=== PATIENT | male | born 1980 | race Caucasian/White ===

== ENCOUNTER → 2017-11-22 | Outpatient (CLI) | payer OTHER ==
--- NOTE | 2017-11-22 17:59 | US ---
EXAMINATION TYPE: US extremity nonvasculr ltd RT posterior knee DATE OF EXAM: 11/22/2017 COMPARISON: NONE CLINICAL HISTORY: 37-year-old male M71.21 SYNOVIAL CYST. Rt posterior knee feels lumpy at times no recent injury TECHNIQUE: Multiple sonographic images of the posterior right knee for specific assessment of Tripathi's cyst. FINDINGS: There is no abnormal fluid collection or mass identified along the popliteal fossa. IMPRESSION: No sonographic evidence for a Tripathi's cyst on the right. If there is persistence of a clinically appa rent palpable abnormality, consider MRI.
== END | disposition home or self-care (01) ==
LOC: RADUSWWP 14:50
PROVIDERS: ATTEND Family Medicine
DX: R94.8 Abnormal results of function studies of other organs and systems (principal)

== ENCOUNTER → 2017-12-26 | Outpatient (CLI) | payer OTHER ==
--- NOTE | 2017-12-26 22:39 | MR ---
EXAMINATION TYPE: MR knee RT wo con DATE OF EXAM: 12/26/2017 COMPARISON: NONE HISTORY: SYNOVIAL CYST OF POPLITEAL SPACE RT KNEE, PAIN X 2 MTHS TECHNIQUE: Multiplanar, multisequence images of the knee is performed without IV contrast. FINDINGS: MEDIAL MENISCUS: Anterior and posterior horns are intact without tear. LATERAL MENISCUS: Anterior and posterior horns are intact without tear. CRUCIATE LIGAMENTS: The anterior and posterior cruciate ligaments are intact and unremarkable. COLLATERAL LIGAMENTS: The medial collateral ligament and lateral collateral ligament complex are inta ct and unremarkable. EXTENSOR MECHANISM: Visualized quadriceps and patellar tendons are intact. EFFUSION: There is small suprapatellar joint effusion. POPLITEAL CYST: No popliteal/holloway cyst. TRICOMPARTMENT SPACES: Tricompartment spaces are fairly well-maintained. There is no significant spur ring seen. CARTILAGE: Tricompartment articular cartilage is preserved. There is no significant chondromalacia pa tella noted. BONE MARROW SIGNAL: No focal abnormal marrow signal is appreciated. OTHER: No additional significant abnormality is appreciated. IMPRESSION: Small suprapatellar joint effusion. No meniscal or ligamentous tear is seen. No popliteal cyst noted.
== END | disposition home or self-care (01) ==
LOC: RADMRIMAIN 17:10
PROVIDERS: ATTEND Family Medicine
DX: M25.461 Effusion, right knee (principal); Z87.39 Personal history of other diseases of the musculoskeletal system and connective tissue

== ENCOUNTER → 2018-04-17 | Outpatient (CLI) | payer OTHER ==
[2018-04-17 15:11] LABS: Basophils # (A) 0.1 k/uL (0-0.2); Basophils % (A) 1 %; Eosinophils # (A) 0.3 k/uL (0-0.7); Eosinophils % (A) 3 %; HCT 48.7 % (39.0-53.0); HGB 16.1 gm/dL (13.0-17.5); Lymphocytes # (A) 2.3 k/uL (1.0-4.8); Lymphocytes % (A) 24 %; MCH 28.2 pg (25.0-35.0); MCHC 33.1 g/dL (31.0-37.0); MCV 85.2 fL (80.0-100.0); Monocytes # (A) 0.5 k/uL (0-1.0); Monocytes % (A) 5 %; Neutrophils # (A) 6.2 k/uL (1.3-7.7); Neutrophils % (A) 65 %; Platelet Count 276 k/uL (150-450); RBC 5.72 m/uL (4.30-5.90); RDW 14.3 % (11.5-15.5); WBC 9.5 k/uL (3.8-10.6)
[2018-04-17 15:25] LABS: Potassium 4.4 mmol/L (3.5-5.1)
== END | disposition home or self-care (01) ==
LOC: LABPAT 14:23
PROVIDERS: ATTEND Orthopaedic Surgery
DX: Z01.812 Encounter for preprocedural laboratory examination (principal); M23.91 Unspecified internal derangement of right knee
CPT/HCPCS: 36415; 80051; 85025

== ENCOUNTER 2018-04-18 11:18 | Day surgery (SDC) | payer OTHER ==
[2018-04-17 09:41] VITALS: BMI 36.9
--- NOTE | 2018-04-17 20:17 | HP ---
HISTORY AND PHYSICAL DATE OF SURGERY: 04/18/2018 Javad Dover is a 37-year-old patient seen with progressive right knee pain. We discussed treatment options. He elected to proceed with arthroscopy. Consent was obtained. PAST MEDICAL HISTORY: Noncontributory. PAST SURGICAL HISTORY: Right hand surgery. DAILY MEDICATIONS: None. ALLERGIES: NONE. SOCIAL HISTORY: Denies tobacco use. PHYSICAL EVALUATION OF THE RIGHT KNEE: Range of motion 0 to 130 degrees. Tenderness along the medial joint line. Positive medial Karen's. Ligaments stable. Hip rotation without pain. Distal neurovascular exam intact. RADIOGRAPHS: Radiographs of the right knee show no osseous abnormality. MRI of right knee revealed an effusion. IMPRESSION: Internal derangement of right knee with meniscal tear. PLAN: Right knee arthroscopy with partial meniscectomy and debridement. MMODL / IJN: [id number] /
[~2018-04-18 11:18] MED LIST: ceFAZolin IN SWFI 2 GM/20 ML SYRINGE IVP ONE
[2018-04-18] MEDS ORDERED: SCOPOLAMINE 1.5MG/72HR PATCH TRANSDERM ONE (11:29)
[2018-04-18] MEDS ORDERED: MIDAZOLAM (PF) 2 MG/2 ML VIAL IV PRN (11:29)
[2018-04-18] MEDS ORDERED: ONDANSETRON 4 MG/2 ML VIAL IVP ONE (11:29)
[2018-04-18] MEDS ORDERED: DEXAMETHASONE SOD PHOSPHATE 10 MG/ML 1 ML VIAL IV ONE (11:29)
[2018-04-18 11:46] VITALS: RESP 16
[2018-04-18] MEDS: LACTATED RINGERS 1,000 ML IV SCH ×2 (11:53→14:57)
[2018-04-18] MEDS ORDERED: LIDOCAINE 1% 20 ML VIAL (10MG/ML) FOR IV START INTRADERMA ONE (11:53)
[2018-04-18] MEDS ORDERED: SUCCINYLCHOLINE CHLORIDE VIAL 200 MG/10 ML VIAL IV ONE (13:26)
[2018-04-18] MEDS ORDERED: MIDAZOLAM 2 MG/2 ML VIAL ONE (13:26)
[2018-04-18] MEDS ORDERED: fentaNYL (PF) 50 MCG/ML 2 ML AMP ONE (13:26)
[2018-04-18] MEDS ORDERED: ePHEDrine SULFATE/0.9% NACL/PF 50 MG/5 ML SYRINGE IV ONE (13:26)
[2018-04-18] MEDS ORDERED: PROPOFOL 10 MG/ML 20 ML VIAL IV ONE (13:26)
[2018-04-18] MEDS ORDERED: BUPIVACAINE (PF) 0.25% 30 ML VIAL INTRAARTIC ONE (13:35)
--- NOTE | 2018-04-18 14:25 | P.OP ---
Date of Procedure: 04/18/18 Preoperative Diagnosis: Internal derangement right knee Postoperative Diagnosis: 1. Tear medial meniscus right knee 2. 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 Reactive synovitis medial, lateral and suprapatellar compartments right knee Procedure(s) Performed: 1. Arthroscopic partial medial meniscectomy right knee 2. Arthroscopic chondroplasty lateral tibial plateau right knee 3. Arthroscopic partial synovectomy medial, lateral and suprapatellar compartments right knee Anesthesia: GETA, local Surgeon: Jordan Holley Estimated Blood Loss (ml): 5 Pathology: none sent Condition: stable Disposition: PACU Indications for Procedure: 37-year-old patient seen with progressive right knee pain. After having treatment options discussed, he elected to proceed with arthroscopy. Operative Findings: See description of procedure Description of Procedure: Patient was taken to the operative suite. Patient underwent a general anesthetic by the department of anesthesia. Patient was given preoperative antibiotics. The right lower extremity was placed in a well-padded arthroscopic leg craig. The right leg was prepped and draped in the normal sterile orthopedic fashion. A lateral parapatellar and suprapatellar incision was made. Trochars were inserted. Arthroscopy was initiated. Suprapatellar pouch revealed diffuse thick reactive synovitis. The patellofemoral joint appeared to articulate congruently. There was grade 1 chondromalacia of the patella, no osteochondral tears were present. The scope was guided into the medial gutter. No loose bodies or plica was identified. The scope was then guided into the medial compartment. A medial parapatellar incision was made. Trocar inserted followed by probe. There was a radial tear posterior horn medial meniscus. There was thick reactive synovitis anteriorly. No significant chondromalacia was present. I performed a partial medial meniscectomy down to stable tissue. I performed a partial synovectomy decompressing the reactive synovitis. The residual meniscus was stable. There was good decompression of the synovitis. Scope and probe were then guided into the intercondylar notch. Cruciates were identified, probed and found to be stable. The scope and probe were then guided into lateral compartment. The lateral meniscus had some mild superficial fraying. There were areas of grade 1 and 2 chondromalacia lateral tibial plateau with osteochondral tears present. There was thick synovitis anteriorly. I performed a chondroplasty of lateral tibial plateau. I debrided those frayed areas of the meniscus with a motorized shaver. I performed a partial synovectomy decompressing reactive synovitis. The residual osteochondral surface was stable. There was good decompression was synovitis. The scope was in guided back into the suprapatellar compartment. I introduced a motorized shaver into the super compartment. I performed a partial synovectomy decompressing the thick reactive synovitis. The shaver was removed. I took one more look around the entire knee, no residual debris. Instruments were now removed from the joint. The joint was infiltrated with .25% Marcaine. Steri-Strips were applied to the portal sites. Sterile dressings were applied. The patient was placed into a MARIA ISABEL hose. No tourniquet was utilized. The patient was awakened, transferred to a bed and taken to recovery stable satisfactory condition.
[2018-04-18 14:38] VITALS: TEMP 97
[2018-04-18] MEDS: HYDROmorphone 0.5 MG/0.5 ML SYRINGE IVP PRN ×2 (14:43→14:50)
[2018-04-18 15:55] VITALS: BP 148/87; PULSE 95
== END 2018-04-18 16:19 | disposition home or self-care (01) ==
LOC: OR 11:18
PROVIDERS: ATTEND Orthopaedic Surgery
DX: S83.241A Other tear of medial meniscus, current injury, right knee, initial encounter (principal); X58.XXXA Exposure to other specified factors, initial encounter; M22.41 Chondromalacia patellae, right knee; M65.861 Other synovitis and tenosynovitis, right lower leg; G47.33 Obstructive sleep apnea (adult) (pediatric); K21.9 Gastro-esophageal reflux disease without esophagitis
CPT/HCPCS: 29881; J2250; J0330; J1100; J2405; J3010; J2704; J1170; J0690

== ENCOUNTER 2021-01-01 12:00 | Inpatient (IN) | payer OTHER ==
[2021-01-01] MEDS ORDERED: ACETAMINOPHEN TAB 500 MG TAB PO STA (12:34)
[2021-01-01] MEDS ORDERED: SODIUM CHLORIDE 0.9% 500 ML 500 ML IV STA (12:34)
--- NOTE | 2021-01-01 12:34 | ED ---
General Adult HPI - General Chief complaint: Upper Respiratory Infection Stated complaint: KIMBERLY Time Seen by Provider: 01/01/21 12:07 Source: patient Mode of arrival: wheelchair Limitations: no limitations - History of Present Illness Initial comments: Dictation was produced using [employer] dictation software. please excuse any grammatical, word or spelling errors. Chief Complaint: 40-year-old male presents emergency department for covered symptoms History of Present Illness: Patient is a 40-year-old male who presents to the emergency department for covid symptoms. His was admitted to the hospital 2 days ago and seems to be doing well. She tested positive for coronavirus. Patient states he had the vaccine 12 days ago. Patient states that his symptoms began around the timing of the vaccine. She states he's having multiple coronavirus symptoms including chest pain, shortness of breath, pleurisy, myalgias, abdominal pain and diarrhea. He states that his shortness of breath is seemingly worse is also having fever. Denies any medical problems. Denies any daily medications. The ROS documented in this emergency department record has been reviewed and confirmed by me. Those systems with pertinent positive or negative responses have been documented in the HPI. All other systems are other negative and/or noncontributory. PHYSICAL EXAM: General Impression: Alert and oriented x3, not in acute distress HEENT: Normocephalic atraumatic, extra-ocular movements intact, pupils equal and reactive to light bilaterally, mucous membranes moist. Cardiovascular: Heart regular rate and rhythm Chest: Able to complete full sentences, no retractions, no tachypnea Abdomen: abdomen soft, non-tender, non-distended, no organomegaly Musculoskeletal: Pulses present and equal in all extremities, no peripheral edema Motor: no focal deficits noted Neurological: CN II-XII grossly intact, no focal motor or sensory deficits noted Skin: Intact with no visualized rashes Psych: Normal affect and mood ED course: 40-year-old male presents to the emergency department for symptoms of coronavirus. Vital signs upon arrival shows temperature 104.4, heart rate of 1:30, respiratory rate of 26, oxygen saturation of 85% on room air. Patient placed on 4 L nasal cannula with oxygen levels measured in the mid 90s. Vitals after Tylenol administration shows temperature 100.8, heart rate 113. Patient's 92% on 2 L nasal cannula. Laboratory evaluation obtained. CBC is unremarkable. Metabolic panel is negative. D-dimer slightly elevated 0.71. Metabolic panel shows sodium 1:30. Elevated inflammatory markers. A rotavirus-positive still. X-ray shows bilateral infiltrates. CT was obtained for elevated d-dimer. CT angios shows no pulmonary embolism. Patient given Decadron. He will be admitted with pulmonary consultation. Case discussed with the [facility]. EKG interpretation: Ventricular rate 123, sinus tachycardia, WV interval 1:30, QRS 60, QTc 440. No WV prolongation, no QTC prolongation, no ST or T-wave changes noted. Overall, this EKG is unremarkable - Related Data Home Medications Medication Instructions Recorded Confirmed Acetaminophen [Tylenol] 1,000 mg PO Q4H PRN 04/17/18 01/01/21 Ibuprofen [Motrin Ib] 800 mg PO Q8H PRN 01/01/21 01/01/21 Allergies Allergy/AdvReac Type Severity Reaction Status Date / Time No Known Allergies Allergy Verified 01/01/21 13:17 Review of Systems ROS Statement: Those systems with pertinent positive or pertinent negative responses have been documented in the HPI. ROS Other: All systems not noted in ROS Statement are negative. Past Medical History Past Medical History: GERD/Reflux, Sleep Apnea/CPAP/BIPAP Additional Past Medical History / Comment(s): rt knee torn meniscus,no cpap,cortisone injection February 2018,borderline diabetes History of Any Multi-Drug Resistant Organisms: None Reported Past Surgical History: Orthopedic Surgery Additional Past Surgical History / Comment(s): thumb procedure, rt knee Past Anesthesia/Blood Transfusion Reactions: No Reported Reaction Additional Past Anesthesia/Blood Transfusion Reaction / Comment(s): no hx blood transfusion Past Psychological History: No Psychological Hx Reported Smoking Status: Never smoker Past Alcohol Use History: Daily Past Drug Use History: None Reported - Past Family History Mother Family Medical History: No Reported History General Exam Limitations: no limitations Course Vital Signs 01/01/21 01/01/21 01/01/21 12:01 13:42 14:32 Temperature 104.4 F H 102.9 F H 100.8 F H Pulse Rate 130 H 120 H 113 H Respiratory 26 H 20 20 Rate Blood Pressure 130/79 114/70 O2 Sat by Pulse 85 L 93 L 92 L Oximetry Medical Decision Making - Lab Data Result diagrams: 01/01/21 12:56 01/01/21 12:56 Lab Results 01/01/21 01/01/21 01/01/21 Range/Units 12:56 12:56 12:56 WBC 7.9 (3.8-10.6) k/uL RBC 5.57 (4.30-5.90) m/uL Hgb 15.8 (13.0-17.5) gm/dL Hct 44.7 (39.0-53.0) % MCV 80.2 (80.0-100.0) fL MCH 28.3 (25.0-35.0) pg MCHC 35.3 (31.0-37.0) g/dL RDW 13.9 (11.5-15.5) % Plt Count 249 (150-450) k/uL MPV 7.6 Neutrophils % 86 % Lymphocytes % 9 % Monocytes % 4 % Eosinophils % 0 % Basophils % 0 % Neutrophils # 6.8 (1.3-7.7) k/uL Lymphocytes # 0.7 L (1.0-4.8) k/uL Monocytes # 0.3 (0-1.0) k/uL Eosinophils # 0.0 (0-0.7) k/uL Basophils # 0.0 (0-0.2) k/uL PT 11.3 (9.0-12.0) sec INR 1.1 (<1.2) APTT 29.7 (22.0-30.0) sec D-Dimer 0.71 H (<0.60) mg/L FEU Sodium (137-145) mmol/L Potassium (3.5-5.1) mmol/L Chloride (98-107) mmol/L Carbon Dioxide (22-30) mmol/L Anion Gap mmol/L BUN (9-20) mg/dL Creatinine (0.66-1.25) mg/dL Est GFR (CKD-EPI)AfAm (>60 ml/min/1.73 sqM) Est GFR (CKD-EPI)NonAf (>60 ml/min/1.73 sqM) Glucose (74-99) mg/dL Plasma Lactic Acid Jairon (0.7-2.0) mmol/L Calcium (8.4-10.2) mg/dL Magnesium (1.6-2.3) mg/dL Total Bilirubin (0.2-1.3) mg/dL AST (17-59) U/L ALT (4-49) U/L Alkaline Phosphatase (38-126) U/L Lactate Dehydrogenase (313-618) U/L C-Reactive Protein (<1.0) mg/dL Total Protein (6.3-8.2) g/dL Albumin (3.5-5.0) g/dL Influenza Type A (PCR) Not Detected (Not Detectd) Influenza Type B (PCR) Not Detected (Not Detectd) RSV (PCR) Not Detected (Not Detectd) SARS-CoV-2 (PCR) Detected A (Not Detectd) 01/01/21 01/01/21 Range/Units 12:56 12:56 WBC (3.8-10.6) k/uL RBC (4.30-5.90) m/uL Hgb (13.0-17.5) gm/dL Hct (39.0-53.0) % MCV (80.0-100.0) fL MCH (25.0-35.0) pg MCHC (31.0-37.0) g/dL RDW (11.5-15.5) % Plt Count (150-450) k/uL MPV Neutrophils % % Lymphocytes % % Monocytes % % Eosinophils % % Basophils % % Neutrophils # (1.3-7.7) k/uL Lymphocytes # (1.0-4.8) k/uL Monocytes # (0-1.0) k/uL Eosinophils # (0-0.7) k/uL Basophils # (0-0.2) k/uL PT (9.0-12.0) sec INR (<1.2) APTT (22.0-30.0) sec D-Dimer (<0.60) mg/L FEU Sodium 130 L (137-145) mmol/L Potassium 4.8 (3.5-5.1) mmol/L Chloride 98 (98-107) mmol/L Carbon Dioxide 23 (22-30) mmol/L Anion Gap 9 mmol/L BUN 17 (9-20) mg/dL Creatinine 0.86 (0.66-1.25) mg/dL Est GFR (CKD-EPI)AfAm >90 (>60 ml/min/1.73 sqM) Est GFR (CKD-EPI)NonAf >90 (>60 ml/min/1.73 sqM) Glucose 151 H (74-99) mg/dL Plasma Lactic Acid Jairon 1.2 (0.7-2.0) mmol/L Calcium 8.3 L (8.4-10.2) mg/dL Magnesium 2.1 (1.6-2.3) mg/dL Total Bilirubin 0.6 (0.2-1.3) mg/dL AST 99 H (17-59) U/L ALT 43 (4-49) U/L Alkaline Phosphatase 57 (38-126) U/L Lactate Dehydrogenase 2637 H (313-618) U/L C-Reactive Protein 20.7 H (<1.0) mg/dL Total Protein 6.8 (6.3-8.2) g/dL Albumin 3.5 (3.5-5.0) g/dL Influenza Type A (PCR) (Not Detectd) Influenza Type B (PCR) (Not Detectd) RSV (PCR) (Not Detectd) SARS-CoV-2 (PCR) (Not Detectd) Critical Care Time Critical Care Time: Yes Total Critical Care Time: 33 Disposition Clinical Impression: COVID-19 Disposition: ADMITTED IP TO THIS [facility] Condition: Critical Is patient prescribed a controlled substance at d/c from ED?: No Referrals: None,Stated [Primary Care Provider] - 1-2 days
--- NOTE | 2021-01-01 12:36 | XR ---
EXAMINATION TYPE: XR chest 1V portable DATE OF EXAM: 01/01/2021 COMPARISON: NONE HISTORY: Cough and shortness of breath TECHNIQUE: Single frontal view of the chest is obtained. FINDINGS: There are scattered airspace opacities in both lungs left greater than right suggestive of acute pneumonic process. The heart size is normal. There is no large pleural effusion and there is no pneumothorax. The osseous structures are intact. Impression: Bilateral scattered lung consolidative opacities consistent with an acute pneumonic infiltrate or pul monary edema. Clinical correlation short-term follow-up to resolution is recommended.
[2021-01-01] MEDS ORDERED: DEXAMETHASONE SOD PHOSPHATE 10 MG/ML 1 ML VIAL IV STA (13:28)
[2021-01-01 13:35] LABS: Basophils % (A) 0 %; Eosinophils % (A) 0 %; HCT 44.7 % (39.0-53.0); HGB 15.8 gm/dL (13.0-17.5); Lymphocytes # (A) 0.7 k/uL (1.0-4.8); Lymphocytes % (A) 9 %; MCH 28.3 pg (25.0-35.0); MCHC 35.3 g/dL (31.0-37.0); MCV 80.2 fL (80.0-100.0); Mean Platelet Volume 7.6; Monocytes # (A) 0.3 k/uL (0-1.0); Monocytes % (A) 4 %; Neutrophils # (A) 6.8 k/uL (1.3-7.7); Neutrophils % (A) 86 %; Platelet Count 249 k/uL (150-450); RBC 5.57 m/uL (4.30-5.90); RDW 13.9 % (11.5-15.5); WBC 7.9 k/uL (3.8-10.6)
[2021-01-01 13:38] LABS: ALT 43 U/L (4-49); AST 99 U/L (17-59); African American GFR (CKD) >90 (>60 ml/min/1.73 sqM); Albumin 3.5 g/dL (3.5-5.0); Alkaline Phosphatase 57 U/L (38-126); Anion Gap 9 mmol/L; Blood Urea Nitrogen 17 mg/dL (9-20); Calcium 8.3 mg/dL (8.4-10.2); Carbon Dioxide 23 mmol/L (22-30); Chloride 98 mmol/L (98-107); Glucose 151 mg/dL (74-99); INR 1.1 (<1.2); Magnesium 2.1 mg/dL (1.6-2.3); Non-African American GFR(CKD) >90 (>60 ml/min/1.73 sqM); Partial Thromboplastin Time 29.7 sec (22.0-30.0); Prothrombin Time 11.3 sec (9.0-12.0); Sodium 130 mmol/L (137-145); Total Bilirubin 0.6 mg/dL (0.2-1.3); Total Protein 6.8 g/dL (6.3-8.2)
[2021-01-01 13:57] LABS: C Reactive Protein 20.7 mg/dL (<1.0); LDH 2637 U/L (313-618); Potassium 4.8 mmol/L (3.5-5.1)
--- NOTE | 2021-01-01 15:28 | CT ---
EXAMINATION TYPE: CT angio chest DATE OF EXAM: 01/01/2021 COMPARISON: None HISTORY: SOB, cough, elevated d-dimer, +covid CT DLP: 726.7 mGycm Automated exposure control for dose reduction was used. CONTRAST: Performed with IV Contrast, patient injected with 100 mL of Isovue 370. There is patchy extensive pulmonary interstitial edema. Heart size is normal. There are no hilar mass es. There are a few bronchial and mediastinal lymph nodes up to 1 cm. Thoracic aorta is intact. There is no aneurysm or dissection. There is no evidence of filling defect in the pulmonary arteries. There is no pleural effusion. The b ashly thorax is intact. IMPRESSION: No evidence of pulmonary embolism. Pulmonary edema consistent with RDS.
[2021-01-01] MEDS ORDERED: NALOXONE 0.4 MG/ML 1 ML VIAL IV PRN (15:35)
[2021-01-01] MEDS ORDERED: ONDANSETRON 4 MG/2 ML VIAL IVP PRN (15:35)
[2021-01-01] MEDS: ENOXAPARIN 40 MG/0.4 ML SYRINGE SQ SCH (17:17)
[2021-01-01] MEDS: SODIUM CHLORIDE 0.9% 1,000 ML IV SCH (17:19)
--- NOTE | 2021-01-02 00:05 | P.HPIM ---
History of Present Illness H&P Date: 01/01/21 Chief Complaint: COVID-19 pneumonia Mr. Guerin is a 40-year-old male with past medical history of GERD, sleep apnea, prediabetes coming to the hospital with a chief complaint of fever difficulty in breathing. Patient states that his was tested positive for coronavirus couple of days back and admitted to the hospital. Patient states that he got the vaccine 2 weeks back and his symptoms of chest discomfort, difficulty in breathing started around that time. He also complains of myalgias, he states that his skin has become sensitive and he feels like he has pain all over his body. Patient has mild abdominal pain, mild diarrhea. Has difficulty in breathing associated with mild cough. It is nonproductive in nature. Patient also complains of having fever on and off for the past 7 to 10 days. In the ER at the time of admission patient had a fever of 104.4 with heart rate around 130, respiratory 26, saturating at 95% on room air. Patient was given Tylenol started on oxygen and he had CTA of the chest that was negative for PE but showing extensive pulmonary interstitial edema with few bronchial and mediastinal lymph nodes up to 1 cm. On reviewing the patient's labs he was found to have a white count of 7.9, hemoglobin 15.8, platelets 249. Sodium 130, potassium 4.8, chloride 98, bicarb 23, BUN 17, creatinine 0.86. Lactic acid of 1.2 LDH 2637, CRP 20.7 coronavirus PCR positive. Review of Systems REVIEW OF SYSTEMS: CONSTITUTIONAL: As per HPI HEENT: No recent visual problems or hearing problems. Denied any sore throat. CARDIOVASCULAR: No chest pain, orthopnea, PND, no palpitations, no syncope. PULMONARY: As per HPI GASTROINTESTINAL: No diarrhea, no nausea, no vomiting, no abdominal pain. NEUROLOGICAL: No headaches, no weakness, no numbness. HEMATOLOGICAL: Denies any bleeding or petechiae. GENITOURINARY: Denies any burning micturition, frequency, or urgency. MUSCULOSKELETAL/RHEUMATOLOGICAL: myalgias ENDOCRINE: Denies any polyuria or polydipsia. The rest of the 14-point review of systems is negative. Past Medical History Past Medical History: GERD/Reflux, Sleep Apnea/CPAP/BIPAP Additional Past Medical History / Comment(s): rt knee torn meniscus,no cpap,cortisone injection February 2018,borderline diabetes History of Any Multi-Drug Resistant Organisms: None Reported Past Surgical History: Orthopedic Surgery Additional Past Surgical History / Comment(s): thumb procedure, rt knee Past Anesthesia/Blood Transfusion Reactions: No Reported Reaction Additional Past Anesthesia/Blood Transfusion Reaction / Comment(s): no hx blood transfusion Past Psychological History: No Psychological Hx Reported Smoking Status: Never smoker Past Alcohol Use History: Daily Past Drug Use History: None Reported - Past Family History Mother Family Medical History: No Reported History Medications and Allergies Home Medications Medication Instructions Recorded Confirmed Type Acetaminophen [Tylenol] 1,000 mg PO Q4H PRN 04/17/18 01/01/21 History Ibuprofen [Motrin Ib] 800 mg PO Q8H PRN 01/01/21 01/01/21 History Albuterol Inhaler [Ventolin Hfa 2 puff INHALATION RT-QID PRN 30 01/12/21 Rx Inhaler] Days #1 unit Apixaban [Eliquis Starter Pack 5 - 10 mg PO DIRECTED 30 Days 01/12/21 Rx (for VTE)] #1 each Apixaban [Eliquis] 5 mg PO BID 60 Days #120 tab 01/12/21 Rx Ascorbic Acid [Vitamin C] 500 mg PO DAILY 30 Days #30 tab 01/12/21 Rx Cholecalciferol [Vitamin D3 (25 25 mcg PO DAILY #30 tablet 01/12/21 Rx Mcg = 1000 Iu)] Dexamethasone [Decadron] 4 mg PO DAILY 5 Days #5 tablet 01/12/21 Rx Famotidine [Pepcid] 20 mg PO BID 30 Days #60 tab 01/12/21 Rx Zinc Sulfate [Orazinc] 220 mg PO DAILY 30 Days #30 cap 01/12/21 Rx Allergies Allergy/AdvReac Type Severity Reaction Status Date / Time No Known Allergies Allergy Verified 01/01/21 13:17 Physical Exam Vitals: Vital Signs Temp Pulse Resp BP Pulse Ox 01/01/21 14:32 100.8 F H 113 H 20 114/70 92 L 01/01/21 13:42 102.9 F H 120 H 20 93 L 01/01/21 12:01 104.4 F H 130 H 26 H 130/79 85 L Intake and Output 01/01/21 01/01/21 01/01/21 06:59 14:59 22:59 Other: Weight 113.398 kg PHYSICAL EXAMINATION: GENERAL: The patient is alert and oriented x3, not in any acute distress. Obese HEENT: Pupils are round and equally reacting to light. EOMI. No scleral icterus. No conjunctival pallor. Normocephalic, atraumatic. No pharyngeal erythema. No thyromegaly. CARDIOVASCULAR: S1 and S2 present. No murmurs, rubs, or gallops. PULMONARY: Bilateral rhonchi ABDOMEN: Soft, nontender, nondistended, normoactive bowel sounds. No palpable organomegaly. MUSCULOSKELETAL: No joint swelling or deformity. EXTREMITIES: No cyanosis, clubbing, or pedal edema. NEUROLOGICAL: Gross neurological examination did not reveal any focal deficits. SKIN: No rashes. Results CBC & Chem 7: 01/12/21 05:56 01/12/21 05:56 Labs: Abnormal Lab Results - Last 24 Hours (Table) 01/01/21 01/01/21 01/01/21 Range/Units 12:56 12:56 12:56 Lymphocytes # 0.7 L (1.0-4.8) k/uL D-Dimer 0.71 H (<0.60) mg/L FEU Sodium (137-145) mmol/L Glucose (74-99) mg/dL Calcium (8.4-10.2) mg/dL AST (17-59) U/L Lactate Dehydrogenase (313-618) U/L C-Reactive Protein (<1.0) mg/dL SARS-CoV-2 (PCR) Detected A (Not Detectd) 01/01/21 Range/Units 12:56 Lymphocytes # (1.0-4.8) k/uL D-Dimer (<0.60) mg/L FEU Sodium 130 L (137-145) mmol/L Glucose 151 H (74-99) mg/dL Calcium 8.3 L (8.4-10.2) mg/dL AST 99 H (17-59) U/L Lactate Dehydrogenase 2637 H (313-618) U/L C-Reactive Protein 20.7 H (<1.0) mg/dL SARS-CoV-2 (PCR) (Not Detectd) Assessment and Plan Assessment: ASSESSMENT Acute hypoxic respiratory failure secondary to COVID-19 pneumonia COVID-19 pneumonia Elevated inflammatory markers Transaminitis History of GERD History of obstructive sleep apnea Obesity with BMI of 35.9 PLAN: Patient has been started on dexamethasone, Lovenox and multivitamin supplements. Patient is currently requiring 2 L of nasal cannula saturating about 90%. Patient started to have symptoms for the past 10 to 14 days, so would not be an ideal candidate for remdesivir. Pulmonary has been consulted. Further recommendations depending on the progress of the patient.
[2021-01-02] MEDS: ACETAMINOPHEN TAB 325 MG TAB PO PRN (01:49)
[2021-01-02] MEDS: SODIUM CHLORIDE 0.9% 1,000 ML IV SCH ×2 (05:47→22:46)
[2021-01-02] MEDS: ASCORBIC ACID 500 MG TAB PO SCH (07:09)
[2021-01-02] MEDS: CHOLECALCIFEROL 25 MCG (1000 IU) TABLET PO SCH (07:09)
[2021-01-02] MEDS: FAMOTIDINE 20 MG TAB PO SCH ×2 (07:09→20:30)
[2021-01-02] MEDS: ZINC SULFATE 220 MG CAP PO SCH (07:09)
[2021-01-02] MEDS: ENOXAPARIN 40 MG/0.4 ML SYRINGE SQ SCH (07:09)
[2021-01-02] MEDS: DEXAMETHASONE SOD PHOSPHATE 10 MG/ML 1 ML VIAL IVP SCH (07:10)
[2021-01-02 12:43] LABS: Basophils # (A) 0.01 X 10*3/uL (0.00-0.10); Basophils % (A) 0.1 %; Eosinophils # (A) 0 X 10*3/uL (0.04-0.35); Eosinophils % (A) 0 %; HCT 44.9 % (39.6-50.0); HGB 14.8 g/dL (13.0-17.0); Lymphocytes # (A) 0.63 X 10*3/uL (0.90-5.00); Lymphocytes % (A) 5.3 %; MCH 27.5 pg (27.0-32.0); MCV 83.3 fL (80.0-97.0); Mean Platelet Volume 10.8 fL (9.5-12.2); Monocytes # (A) 0.49 X 10*3/uL (0.20-1.00); Monocytes % (A) 4.1 %; Neutrophils # (A) 10.67 X 10*3/uL (1.80-7.70); Neutrophils % (A) 89.7 %; Platelet Count 278 X 10*3/uL (140-440); RBC 5.39 X 10*6/uL (4.40-5.60); RDW 14.1 % (11.5-14.5); WBC 11.89 X 10*3/uL (4.50-10.00)
[2021-01-02 12:50] LABS: African American GFR (CKD) 121.7 (60.0-200.0); Albumin 3.6 g/dL (3.8-4.9); Albumin/Globulin Ratio 1.29 (1.60-3.17); Anion Gap 13.9 mmol/L (4.00-12.00); BUN/Creat Ratio 19.56 Ratio (12.00-20.00); Blood Urea Nitrogen 17.6 mg/dL (9.0-27.0); Calcium 8.7 mg/dL (8.7-10.3); Carbon Dioxide 21.1 mmol/L (21.6-31.8); Globulin 2.8 g/dL (1.6-3.3); Potassium 4.7 mmol/L (3.5-5.5); Total Bilirubin 0.3 mg/dL (0.30-1.20); Total Protein 6.4 g/dL (6.2-8.2)
--- NOTE | 2021-01-02 14:59 | P.CNPUL ---
History of Present Illness Consult date: 01/02/21 Requesting physician: Kristina Rico Reason for consult: dyspnea, cough, hypoxemia, pneumonia, abnormal CXR/CT Chief complaint: Shortness of breath and cough. History of present illness: Pulmonary consult dated 01/02/2021. This is a 40-year-old white male, who presents to the emergency department on January 01, complaining of shortness of breath, fever, muscle aches, harsh cough, and generalized weakness. Apparently his was admitted to the hospital 2 days ago, with coronavirus. The patient had his first vaccination against coronavirus, almost 2 weeks ago. His symptoms began about the same time that he had the vaccine, maybe a day or 2 after. He denies any chest pain or chest discomfort. He does admit to fever and chills. He does have muscle aches and joint aches. He also has a very harsh mostly dry cough, and shortness of breath on exertion. The patient did not have a primary medical doctor, and he denies any other medical problems. He's been taking Tylenol and Motrin at home. White count 11.9, hemoglobin 14.8, hematocrit 44.9, and platelet count 270,000. D-dimer is 0.71. Sodium 135, potassium 4.7, chlorides 100, CO2 21, anion gap 14, BUN 18, creatinine 0.9. The patient's ferritin level was 1280. AST is 70, ALT is 47, pro-calcitonin level is 0.17. C-reactive protein is 20.7. Coronavirus testing on January 01 was positive. Chest x-ray showed diffuse omer ateral infiltrates. CT angiogram was negative for pulmonary embolism but did show typical groundglass opacities consistent with coronavirus pneumonia. Review of Systems REVIEW OF SYSTEMS: CONSTITUTIONAL: Fever, chills, weakness. NEUROLOGIC: [ Negative.] HEENT: [ Negative.] CARDIAC: [Negative.] PULMONARY: Shortness of breath, chest congestion, and cough. GI: [Negative.] : [Negative.] RHEUMATOLOGIC: Diffuse muscle aches. IMMUNOLOGIC: [ Negative.] ENDOCRINE: [Negative. ] DERMATOLOGIC: [Negative.] Past Medical History Past Medical History: GERD/Reflux, Sleep Apnea/CPAP/BIPAP Additional Past Medical History / Comment(s): rt knee torn meniscus,no cpap,cortisone injection February 2018,borderline diabetes History of Any Multi-Drug Resistant Organisms: None Reported Past Surgical History: Orthopedic Surgery Additional Past Surgical History / Comment(s): thumb procedure, rt knee Past Anesthesia/Blood Transfusion Reactions: No Reported Reaction Additional Past Anesthesia/Blood Transfusion Reaction / Comment(s): no hx blood transfusion Past Psychological History: No Psychological Hx Reported Smoking Status: Never smoker Past Alcohol Use History: Daily Past Drug Use History: None Reported - Past Family History Mother Family Medical History: No Reported History Medications and Allergies Home Medications Medication Instructions Recorded Confirmed Type Acetaminophen [Tylenol] 1,000 mg PO Q4H PRN 04/17/18 01/01/21 History Ibuprofen [Motrin Ib] 800 mg PO Q8H PRN 01/01/21 01/01/21 History Allergies Allergy/AdvReac Type Severity Reaction Status Date / Time No Known Allergies Allergy Verified 01/01/21 13:17 Physical Exam Osteopathic Statement: *. No significant issues noted on an osteopathic structural exam other than those noted in the History and Physical/Consult. Vitals: Vital Signs Temp Pulse Pulse Resp BP BP Pulse Ox 01/02/21 10:20 98.5 F 116 H 20 125/77 90 L 01/02/21 07:45 20 01/02/21 05:36 97.5 F L 98 20 150/79 92 L 01/02/21 03:32 94 L 01/02/21 01:40 EDT 99.0 F 109 H 22 145/84 88 L 01/01/21 21:41 98.0 F 87 19 127/84 92 L 01/01/21 18:33 98.6 F 101 H 18 134/86 91 L 01/01/21 16:40 99.7 F H 106 H 20 122/60 94 L Intake and Output 01/01/21 01/02/21 01/02/21 23:59 06:59 14:59 Other: # Voids No acute distress, oriented 3. No audible wheezing, use of accessory muscles, or conversational dyspnea. Saturations are 90-92% on 6 L. HEENT examination is grossly unremarkable. Neck supple. Full range of motion. No adenopathy thyromegaly or neck vein distention. Cardiovascular examination reveals regular rhythm rate. S1-S2 normal. No S3 or S4. No discernible murmur noted. Heart sounds are distant. Heart rate 98 bpm. Lungs reveal coarse bilateral rhonchi. No wheezes or crackles. Breath sounds equal bilaterally. Abdomen soft bowel sounds are heard. No masses or tenderness. Extremities are intact. No cyanosis clubbing or edema. Skin is without rash or lesion. Neurologic examination is brief but nonfocal. Results - Laboratory Findings CBC and BMP: 01/02/21 07:53 01/02/21 07:53 PT/INR, D-dimer PT 11.3 sec (9.0-12.0) 01/01/21 12:56 INR 1.1 (<1.2) 01/01/21 12:56 D-Dimer 0.71 mg/L FEU (<0.60) H 01/01/21 12:56 Abnormal lab findings: Abnormal Labs 01/01/21 01/01/21 01/01/21 12:56 12:56 12:56 WBC Immature Gran # Neutrophils # Lymphocytes # 0.7 L Eosinophils # D-Dimer 0.71 H Sodium Carbon Dioxide Anion Gap Glucose Calcium Ferritin AST Lactate Dehydrogenase C-Reactive Protein Albumin Albumin/Globulin Ratio Procalcitonin SARS-CoV-2 (PCR) Detected A 01/01/21 01/01/21 01/02/21 12:56 12:56 07:53 WBC 11.89 H Immature Gran # 0.09 H Neutrophils # 10.67 H Lymphocytes # 0.63 L Eosinophils # 0 L D-Dimer Sodium 130 L Carbon Dioxide Anion Gap Glucose 151 H Calcium 8.3 L Ferritin 1280.0 H AST 99 H Lactate Dehydrogenase 2637 H C-Reactive Protein 20.7 H Albumin Albumin/Globulin Ratio Procalcitonin 0.17 H SARS-CoV-2 (PCR) 01/02/21 07:53 WBC Immature Gran # Neutrophils # Lymphocytes # Eosinophils # D-Dimer Sodium Carbon Dioxide 21.1 L Anion Gap 13.90 H Glucose 161 H Calcium Ferritin AST 70 H Lactate Dehydrogenase C-Reactive Protein Albumin 3.6 L Albumin/Globulin Ratio 1.29 L Procalcitonin SARS-CoV-2 (PCR) - Diagnostic Findings Chest x-ray: image reviewed CT scan - chest: image reviewed Assessment and Plan Assessment: Acute hypoxemic respiratory failure secondary to coronavirus associated pneum onia. Elevated inflammatory marker secondary to coronavirus infection. No pulmonary embolism seen on CT angiogram. No history of other chronic medical problems. Plan: Plan dated 01/02/2021. The patient is placed on vitamin C, vitamin D3, and zinc. In addition, we give him Lovenox 40 mg subcu daily, and Decadron 6 mg IV push every day. Additional recommendations and suggestions are forthcoming. The patient appears to be outside the window for REM. The patient will be followed very closely. Prognosis is guarded. We will continue to follow and make recommendations where appropriate. Chest x-ray, CAT scan, labs, and medications are all reviewed. Time with Patient: Greater than 30
--- NOTE | 2021-01-02 22:47 | P.PN ---
Subjective Progress Note Date: 01/02/21 Principal diagnosis: COVID PNEUMONIA Mr. Guerin is a 40-year-old male with past medical history of GERD, sleep apnea, prediabetes coming to the hospital with a chief complaint of fever difficulty in breathing. Patient states that his was tested positive for coronavirus couple of days back and admitted to the hospital. Patient states that he got the vaccine 2 weeks back and his symptoms of chest discomfort, difficulty in breathing started around that time. He also complains of myalgias, he states that his skin has become sensitive and he feels like he has pain all over his body. Patient has mild abdominal pain, mild diarrhea. Has difficulty in breathing associated with mild cough. It is nonproductive in nature. Patient also complains of having fever on and off for the past 7 to 10 days. In the ER at the time of admission patient had a fever of 104.4 with heart rate around 130, respiratory 26, saturating at 95% on room air. Patient was given T ylenol started on oxygen and he had CTA of the chest that was negative for PE but showing extensive pulmonary interstitial edema with few bronchial and mediastinal lymph nodes up to 1 cm. On reviewing the patient's labs he was found to have a white count of 7.9, hemoglobin 15.8, platelets 249. Sodium 130, potassium 4.8, chloride 98, bicarb 23, BUN 17, creatinine 0.86. Lactic acid of 1.2 LDH 2637, CRP 20.7 coronavirus PCR positive. On 01/02/2021 patient is seen and examined at the bedside. Patient still continues to have difficulty in breathing. He also complains of cough but it is nonproductive in nature. He states that he has been trying to use the incentive spirometer but having bouts of cough with difficulty in breathing. He denies having any fevers chills or rigors. No abdominal pain nausea vomiting or diarrhea. No dizziness or headaches. On reviewing the patient's vitals temperature of 98.5, heart rate 1 10-1 20s, respiratory 20, blood pressure 125/77 saturating at 90% on 6 L of nasal cannula. Patient's labs reviewed white count of 11.8, hemoglobin 14.8, platelets 278. Sodium 135, potassium 4.7, chloride 100, bicarb 21, BUN 17, creatinine 0.9 albumin of 3.6. Active Medications Acetaminophen (Acetaminophen Tab 325 Mg Tab) 650 mg PO Q6HR PRN PRN Reason: Mild Pain or Fever > 100.5 Last Admin: 01/02/21 01:49 EDT Dose: 650 mg Documented by: Ascorbic Acid (Ascorbic Acid 500 Mg Tab) 500 mg PO DAILY [facility] Last Admin: 01/02/21 07:09 Dose: 500 mg Documented by: Cholecalciferol (Cholecalciferol 25 Mcg (1000 Iu) Tablet) 25 mcg PO DAILY [facility] Last Admin: 01/02/21 07:09 Dose: 25 mcg Documented by: Dexamethasone Sodium Phosphate (Dexamethasone Sod Phosphate 10 Mg/Ml 1 Ml Vial) 6 mg IVP DAILY [facility] Last Admin: 01/02/21 07:10 Dose: 6 mg Documented by: Enoxaparin Sodium (Enoxaparin 40 Mg/0.4 Ml Syringe) 40 mg SQ DAILY [facility] Last Admin: 01/02/21 07:09 Dose: 40 mg Documented by: Famotidine (Famotidine 20 Mg Tab) 20 mg PO BID [facility] Last Admin: 01/02/21 20:30 Dose: 20 mg Documented by: Sodium Chloride (Saline 0.9%) 1,000 mls @ 75 mls/hr IV .[id number] [facility] Last Admin: 01/02/21 05:47 Dose: Not Given Documented by: Naloxone HCl (Naloxone 0.4 Mg/Ml 1 Ml Vial) 0.2 mg IV Q2M PRN PRN Reason: Opioid Reversal Ondansetron HCl (Ondansetron 4 Mg/2 Ml Vial) 4 mg IVP Q8HR PRN PRN Reason: Nausea And Vomiting Zinc Sulfate (Zinc Sulfate 220 Mg Cap) 220 mg PO DAILY [facility] Last Admin: 01/02/21 07:09 Dose: 220 mg Documented by: Objective - Vital Signs Vital signs: Vital Signs Temp 97.7 F 01/02/21 14:00 Pulse 117 H 01/02/21 14:00 Resp 22 01/02/21 14:00 BP 126/78 01/02/21 14:00 Pulse Ox 88 L 01/02/21 14:00 Intake & Output 01/01/21 01/02/21 01/02/21 19:59 06:59 18:59 Weight Other: # Voids - Exam PHYSICAL EXAMINATION: GENERAL: The patient is alert and oriented x3, not in any acute distress. Obese HEENT: Pupils are round and equally reacting to light. EOMI. No scleral icterus. No conjunctival pallor. Normocephalic, atraumatic. No pharyngeal erythema. No thyromegaly. CARDIOVASCULAR: S1 and S2 present. No murmurs, rubs, or gallops. PULMONARY: Bilateral rhonchi ABDOMEN: Soft, nontender, nondistended, normoactive bowel sounds. No palpable organomegaly. MUSCULOSKELETAL: No joint swelling or deformity. EXTREMITIES: No cyanosis, clubbing, or pedal edema. NEUROLOGICAL: Gross neurological examination did not reveal any focal deficits. SKIN: No rashes. - Labs CBC & Chem 7: 01/02/21 07:53 01/02/21 07:53 Labs: Abnormal Lab Results - Last 24 Hours (Table) 01/01/21 01/01/21 01/02/21 Range/Units 12:56 12:56 07:53 WBC 11.89 H (4.50-10.00) X 10*3/uL Immature Gran # 0.09 H (0.00-0.04) X 10*3/uL Neutrophils # 10.67 H (1.80-7.70) X 10*3/uL Lymphocytes # 0.63 L (0.90-5.00) X 10*3/uL Eosinophils # 0 L (0.04-0.35) X 10*3/uL Carbon Dioxide (21.6-31.8) mmol/L Anion Gap (4.00-12.00) mmol/L Glucose (70-110) mg/dL Ferritin 1280.0 H (22.0-322.0) ng/mL AST (14-35) U/L Albumin (3.8-4.9) g/dL Albumin/Globulin Ratio (1.60-3.17) g/dL Procalcitonin 0.17 H (0.02-0.09) ng/mL 01/02/21 Range/Units 07:53 WBC (4.50-10.00) X 10*3/uL Immature Gran # (0.00-0.04) X 10*3/uL Neutrophils # (1.80-7.70) X 10*3/uL Lymphocytes # (0.90-5.00) X 10*3/uL Eosinophils # (0.04-0.35) X 10*3/uL Carbon Dioxide 21.1 L (21.6-31.8) mmol/L Anion Gap 13.90 H (4.00-12.00) mmol/L Glucose 161 H (70-110) mg/dL Ferritin (22.0-322.0) ng/mL AST 70 H (14-35) U/L Albumin 3.6 L (3.8-4.9) g/dL Albumin/Globulin Ratio 1.29 L (1.60-3.17) g/dL Procalcitonin (0.02-0.09) ng/mL Assessment and Plan Assessment: ASSESSMENT Acute hypoxic respiratory failure secondary to COVID-19 pneumonia COVID-19 pneumonia Elevated inflammatory markers Transaminitis History of GERD History of obstructive sleep apnea Obesity with BMI of 35.9 PLAN: Patient has been started on dexamethasone, Lovenox and multivitamin supplements. Patient is requiring 6 L of nasal cannula saturating about 90% today. Patient started to have symptoms for the past 10 to 14 days, so would not be an ideal candidate for remdesivir. Pulmonary has been consulted. Further recommendations depending on the progress of the patient. Overall prognosis remains guarded.
[2021-01-03] MEDS: ACETAMINOPHEN TAB 325 MG TAB PO PRN (02:49)
[2021-01-03] MEDS: FAMOTIDINE 20 MG TAB PO SCH ×2 (07:14→20:24)
[2021-01-03] MEDS: SODIUM CHLORIDE 0.9% 1,000 ML IV SCH (07:14)
[2021-01-03] MEDS: CHOLECALCIFEROL 25 MCG (1000 IU) TABLET PO SCH (07:59)
[2021-01-03] MEDS: DEXAMETHASONE SOD PHOSPHATE 10 MG/ML 1 ML VIAL IVP SCH (07:59)
[2021-01-03] MEDS: ENOXAPARIN 40 MG/0.4 ML SYRINGE SQ SCH (07:59)
[2021-01-03] MEDS: ASCORBIC ACID 500 MG TAB PO SCH (07:59)
[2021-01-03] MEDS: ZINC SULFATE 220 MG CAP PO SCH (07:59)
[2021-01-03 11:17] LABS: African American GFR (CKD) 121.7 (60.0-200.0); Anion Gap 12.8 mmol/L (4.00-12.00); BUN/Creat Ratio 20.44 Ratio (12.00-20.00); Blood Urea Nitrogen 18.4 mg/dL (9.0-27.0); C Reactive Protein 5.6 mg/dL (0.00-0.80); Calcium 8.5 mg/dL (8.7-10.3); Carbon Dioxide 22.2 mmol/L (21.6-31.8); Potassium 4.9 mmol/L (3.5-5.5)
[2021-01-03 11:37] LABS: Basophils # (A) 0.01 X 10*3/uL (0.00-0.10); Basophils % (A) 0.1 %; Eosinophils # (A) 0 X 10*3/uL (0.04-0.35); Eosinophils % (A) 0 %; HCT 42.2 % (39.6-50.0); HGB 13.7 g/dL (13.0-17.0); Lymphocytes # (A) 0.72 X 10*3/uL (0.90-5.00); Lymphocytes % (A) 6.5 %; MCH 27.1 pg (27.0-32.0); MCHC 32.5 g/dL (32.0-37.0); MCV 83.6 fL (80.0-97.0); Monocytes # (A) 0.33 X 10*3/uL (0.20-1.00); Neutrophils # (A) 9.89 X 10*3/uL (1.80-7.70); Neutrophils % (A) 89.3 %; Platelet Count 369 X 10*3/uL (140-440); RBC 5.05 X 10*6/uL (4.40-5.60); RDW 14.4 % (11.5-14.5); WBC 11.07 X 10*3/uL (4.50-10.00)
--- NOTE | 2021-01-03 13:14 | P.PN ---
Subjective Progress Note Date: 01/03/21 This is a 40-year-old white male, who presents to the emergency department on January 01, complaining of shortness of breath, fever, muscle aches, harsh cough, and generalized weakness. Apparently his was admitted to the hospital 2 days ago, with coronavirus. The patient had his first vaccination against coronavirus, almost 2 weeks ago. His symptoms began about the same time that he had the vaccine, maybe a day or 2 after. He denies any chest pain or chest discomfort. He does admit to fever and chills. He does have muscle aches and joint aches. He also has a very harsh mostly dry cough, and shortness of breath on exertion. The patient did not have a primary medical doctor, and he denies any other medical problems. He's been taking Tylenol and Motrin at home. White count 11.9, hemoglobin 14.8, hematocrit 44.9, and platelet count 270,000. D-dimer is 0.71. Sodium 135, potassium 4.7, chlorides 100, CO2 21, anion gap 14, BUN 18, creatinine 0.9. The patient's ferritin level was 1280. AST is 70, ALT is 47, pro-calcitonin level is 0.17. C-reactive protein is 20.7. Coronavirus testing on January 01 was positive. Chest x-ray showed diffuse bilateral infiltrates. CT angiogram was negative for pulmonary embolism but did show typical groundglass opacities consistent with coronavirus pneumonia. On today's evaluation of 01/03/2021, seeing the patient for a follow-up. He is aphasic overnight. The pneumonia was seen index consultation yesterday. The patient received his first dose of vaccination for Covid 19 approximately 2 weeks ago. The patient's CT angiogram showed no evidence of any pulmonary embolism. Nevertheless there was bilateral pulmonary infiltrates consistent with Coumadin. Pneumonia. On today's evaluation, he is on oxygen 6 L per minute with a pulse ox of 92%. He is afebrile hemodynamically stable. His pro- calcitonin level was 0.17. His blood work essentially within normal limits. LDH dropped to 805 and a CRP level dropped down to 5.6. The patient was given Decadron 6 mg IV every 24 hours and the patient was also given Lovenox 40 mg sub cu for DVT prophylaxis. The patient is getting normal saline at the rate of 75 mL an hour. Objective - Vital Signs Vital signs: Vital Signs Temp 97.8 F 01/03/21 11:25 Pulse 98 01/03/21 11:25 Resp 20 01/03/21 11:25 BP 127/85 01/03/21 11:25 Pulse Ox 92 L 01/03/21 11:25 Intake & Output 01/02/21 01/03/21 01/03/21 18:59 06:59 18:59 Other: # Voids 2 - Exam No acute distress, oriented 3. No audible wheezing, use of accessory muscles, or conversational dyspnea. Saturations are 90-92% on 6 L. HEENT examination is grossly unremarkable. Neck supple. Full range of motion. No adenopathy thyromegaly or neck vein distention. Cardiovascular examination reveals regular rhythm rate. S1-S2 normal. No S3 or S4. No discernible murmur noted. Heart sounds are distant. Heart rate 98 bpm. Lungs reveal coarse bilateral rhonchi. No wheezes or crackles. Breath sounds equal bilaterally. Abdomen soft bowel sounds are heard. No masses or tenderness. Extremities are intact. No cyanosis clubbing or edema. Skin is without rash or lesion. Neurologic examination is brief but nonfocal. - Labs CBC & Chem 7: 01/03/21 07:49 01/03/21 07:49 Labs: Abnormal Lab Results - Last 24 Hours (Table) 01/03/21 01/03/21 01/03/21 Range/Units 07:49 07:49 07:49 WBC 11.07 H (4.50-10.00) X 10*3/uL Immature Gran # 0.12 H (0.00-0.04) X 10*3/uL Neutrophils # 9.89 H (1.80-7.70) X 10*3/uL Lymphocytes # 0.72 L (0.90-5.00) X 10*3/uL Eosinophils # 0 L (0.04-0.35) X 10*3/uL D-Dimer 1.19 H (<0.60) mg/L FEU Anion Gap 12.80 H (4.00-12.00) mmol/L BUN/Creatinine Ratio 20.44 H (12.00-20.00) Ratio Glucose 133 H (70-110) mg/dL Calcium 8.5 L (8.7-10.3) mg/dL Lactate Dehydrogenase 805 H (120-246) U/L C-Reactive Protein 5.60 H (0.00-0.80) mg/dL Microbiology - Last 24 Hours (Table) 01/01/21 16:47 Blood Culture - Preliminary Blood No Growth after 24 hours 01/01/21 16:47 Blood Culture - Preliminary Blood No Growth after 24 hours Assessment and Plan Plan: 1 Acute hypoxemic respiratory failure secondary to coronavirus associated pneumonia. 2 acute Covid 19 infection/pneumonia in an individual has received only 1 dose of vaccination 3 Elevated inflammatory marker secondary to coronavirus infection. 4 No pulmonary embolism seen on CT angiogram. 5 No history of other chronic medical problems. Plan: Clinically stable Inflammatory markers are improving and the LDH is significantly lower Keep the patient on 6 L about 2 by nasal cannula without the FiO2 to maintain a saturation above 90% Continue with the Decadron 6 mg IV every 24 hours and continue the Lovenox 40 mg subcu daily and the give the patient incentive spirometer We'll continue to follow.
--- NOTE | 2021-01-03 23:03 | P.PN ---
Subjective Progress Note Date: 01/03/21 Principal diagnosis: COVID PNEUMONIA Mr. Guerin is a 40-year-old male with past medical history of GERD, sleep apnea, prediabetes coming to the hospital with a chief complaint of fever difficulty in breathing. Patient states that his was tested positive for coronavirus couple of days back and admitted to the hospital. Patient states that he got the vaccine 2 weeks back and his symptoms of chest discomfort, difficulty in breathing started around that time. He also complains of myalgias, he states that his skin has become sensitive and he feels like he has pain all over his body. Patient has mild abdominal pain, mild diarrhea. Has difficulty in breathing associated with mild cough. It is nonproductive in nature. Patient also complains of having fever on and off for the past 7 to 10 days. In the ER at the time of admission patient had a fever of 104.4 with heart rate around 130, respiratory 26, saturating at 95% on room air. Patient was given T ylenol started on oxygen and he had CTA of the chest that was negative for PE but showing extensive pulmonary interstitial edema with few bronchial and mediastinal lymph nodes up to 1 cm. On reviewing the patient's labs he was found to have a white count of 7.9, hemoglobin 15.8, platelets 249. Sodium 130, potassium 4.8, chloride 98, bicarb 23, BUN 17, creatinine 0.86. Lactic acid of 1.2 LDH 2637, CRP 20.7 coronavirus PCR positive. On 01/02/2021 patient is seen and examined at the bedside. Patient still continues to have difficulty in breathing. He also complains of cough but it is nonproductive in nature. He states that he has been trying to use the incentive spirometer but having bouts of cough with difficulty in breathing. He denies having any fevers chills or rigors. No abdominal pain nausea vomiting or diarrhea. No dizziness or headaches. On reviewing the patient's vitals temperature of 98.5, heart rate 1 10-1 20s, respiratory 20, blood pressure 125/77 saturating at 90% on 6 L of nasal cannula. Patient's labs reviewed white count of 11.8, hemoglobin 14.8, platelets 278. Sodium 135, potassium 4.7, chloride 100, bicarb 21, BUN 17, creatinine 0.9 albumin of 3.6. On 01/03/2021 patient is seen and examined at bedside. He is sitting comfortably in and out of chair by the bedside saturating at low 90s on 6 L of oxygen. Patient states he still has bouts of coughing episodes. He denies having any fevers chills or rigors. He denies having any abdominal pain nausea vomiting or diarrhea. He denies having any hematuria or dysuria. On reviewing patient's vitals temperature of 98.2, heart rate 93, respiratory rate 17, blood pressure 123/74 saturating at 92% on 6 L of nasal cannula. On reviewing the patient's labs white count of 11, hemoglobin 13, platelets 369. D-dimer 1.19. LDH 805, CRP 5.6. Sodium 137, potassium 4.9, chloride 102, bicarb 22, BUN 18, creatinine 0.9. Patient's medications have been reviewed Active Medications Acetaminophen (Acetaminophen Tab 325 Mg Tab) 650 mg PO Q6HR PRN PRN Reason: Mild Pain or Fever > 100.5 Last Admin: 01/03/21 02:49 Dose: 650 mg Documented by: Ascorbic Acid (Ascorbic Acid 500 Mg Tab) 500 mg PO DAILY [facility] Last Admin: 01/03/21 07:59 Dose: 500 mg Documented by: Cholecalciferol (Cholecalciferol 25 Mcg (1000 Iu) Tablet) 25 mcg PO DAILY [facility] Last Admin: 01/03/21 07:59 Dose: 25 mcg Documented by: Dexamethasone Sodium Phosphate (Dexamethasone Sod Phosphate 10 Mg/Ml 1 Ml Vial) 6 mg IVP DAILY [facility] Last Admin: 01/03/21 07:59 Dose: 6 mg Documented by: Enoxaparin Sodium (Enoxaparin 40 Mg/0.4 Ml Syringe) 40 mg SQ DAILY [facility] Last Admin: 01/03/21 07:59 Dose: 40 mg Documented by: Famotidine (Famotidine 20 Mg Tab) 20 mg PO BID [facility] Last Admin: 01/03/21 20:24 Dose: 20 mg Documented by: Sodium Chloride (Saline 0.9%) 1,000 mls @ 75 mls/hr IV .[id number] [facility] Last Admin: 01/03/21 07:14 Dose: 75 mls/hr Documented by: Naloxone HCl (Naloxone 0.4 Mg/Ml 1 Ml Vial) 0.2 mg IV Q2M PRN PRN Reason: Opioid Reversal Ondansetron HCl (Ondansetron 4 Mg/2 Ml Vial) 4 mg IVP Q8HR PRN PRN Reason: Nausea And Vomiting Zinc Sulfate (Zinc Sulfate 220 Mg Cap) 220 mg PO DAILY [facility] Last Admin: 01/03/21 07:59 Dose: 220 mg Documented by: Objective - Vital Signs Vital signs: Vital Signs Temp 97.8 F 01/03/21 11:25 Pulse 98 01/03/21 11:25 Resp 20 01/03/21 11:25 BP 127/85 01/03/21 11:25 Pulse Ox 92 L 01/03/21 11:25 Intake & Output 01/02/21 01/03/21 01/03/21 18:59 06:59 18:59 Other: # Voids 2 - Exam PHYSICAL EXAMINATION: GENERAL: The patient is alert and oriented x3, not in any acute distress. HEENT: Pupils are round and equally reacting to light. EOMI. No scleral icterus. CARDIOVASCULAR: S1 and S2 present. No murmurs, rubs, or gallops. PULMONARY: Bilateral rhonchi in all lung gamez ABDOMEN: Soft, nontender, nondistended, normoactive bowel sounds. No palpable organomegaly. MUSCULOSKELETAL: No joint swelling or deformity. EXTREMITIES: No cyanosis, clubbing, or pedal edema. NEUROLOGICAL: Gross neurological examination did not reveal any focal deficits. SKIN: No rashes. - Labs CBC & Chem 7: 01/03/21 07:49 01/03/21 07:49 Labs: Abnormal Lab Results - Last 24 Hours (Table) 01/03/21 01/03/21 01/03/21 Range/Units 07:49 07:49 07:49 WBC 11.07 H (4.50-10.00) X 10*3/uL Immature Gran # 0.12 H (0.00-0.04) X 10*3/uL Neutrophils # 9.89 H (1.80-7.70) X 10*3/uL Lymphocytes # 0.72 L (0.90-5.00) X 10*3/uL Eosinophils # 0 L (0.04-0.35) X 10*3/uL D-Dimer 1.19 H (<0.60) mg/L FEU Anion Gap 12.80 H (4.00-12.00) mmol/L BUN/Creatinine Ratio 20.44 H (12.00-20.00) Ratio Glucose 133 H (70-110) mg/dL Calcium 8.5 L (8.7-10.3) mg/dL Lactate Dehydrogenase 805 H (120-246) U/L C-Reactive Protein 5.60 H (0.00-0.80) mg/dL Microbiology - Last 24 Hours (Table) 01/01/21 16:47 Blood Culture - Preliminary Blood No Growth after 24 hours 01/01/21 16:47 Blood Culture - Preliminary Blood No Growth after 24 hours Assessment and Plan Assessment: ASSESSMENT Acute hypoxic respiratory failure secondary to COVID-19 pneumonia COVID-19 pneumonia Elevated inflammatory markers Transaminitis History of GERD History of obstructive sleep apnea Obesity with BMI of 35.9 PLAN: Patient to be continued on dexamethasone, Lovenox and multivitamin supplements. Patient is requiring 6- 7 L of nasal cannula saturating about 90% today. Patient started to have symptoms for the past 10 to 14 days, so would not be an ideal candidate for remdesivir. Pulmonary following the patient Further recommendations depending on the progress of the patient. Overall prognosis remains guarded.
[2021-01-04] MEDS: SODIUM CHLORIDE 0.9% 1,000 ML IV SCH ×3 (03:34→17:15)
--- NOTE | 2021-01-04 08:09 | XR ---
EXAMINATION TYPE: XR chest 1V portable DATE OF EXAM: 01/04/2021 CLINICAL HISTORY: Difficulty breathing and covid progress study. TECHNIQUE: Single AP portable upright view of the chest is obtained. COMPARISON: Chest x-ray and CTA chest from 3 days earlier FINDINGS: Multifocal and confluent left greater than right mid and lower lung opacities remain prese nt. Cardiac silhouette size stable and within normal limits. Osseous structures are intact. Overlying EKG leads current study. IMPRESSION: Multifocal and confluent left greater than right bilateral mid to lower lung opacities re demonstrated consistent with known covid-19 infection. No significant change from 3 days earlier.
[2021-01-04] MEDS: FAMOTIDINE 20 MG TAB PO SCH ×2 (08:22→20:51)
[2021-01-04] MEDS: DEXAMETHASONE SOD PHOSPHATE 10 MG/ML 1 ML VIAL IVP SCH (09:57)
[2021-01-04] MEDS: ENOXAPARIN 40 MG/0.4 ML SYRINGE SQ SCH (09:58)
[2021-01-04] MEDS: ASCORBIC ACID 500 MG TAB PO SCH (09:58)
[2021-01-04] MEDS: ZINC SULFATE 220 MG CAP PO SCH (09:58)
[2021-01-04] MEDS: CHOLECALCIFEROL 25 MCG (1000 IU) TABLET PO SCH (09:58)
[2021-01-04] MEDS ORDERED: guaiFENesin SYRUP 100MG/5ML 200 MG/10 ML CUP PO PRN (10:36)
[2021-01-04] MEDS: ACETAMINOPHEN TAB 325 MG TAB PO PRN (10:40)
[2021-01-04 11:01] LABS: C Reactive Protein 3.5 mg/dL (0.00-0.80)
[2021-01-04] MEDS: ALBUTEROL HFA INHALER INHALATION SCH ×2 (11:30→20:26)
--- NOTE | 2021-01-04 12:45 | P.PN ---
Subjective Progress Note Date: 01/04/21 This is a 40-year-old white male, who presents to the emergency department on January 01, complaining of shortness of breath, fever, muscle aches, harsh cough, and generalized weakness. Apparently his was admitted to the hospital 2 days ago, with coronavirus. The patient had his first vaccination against coronavirus, almost 2 weeks ago. His symptoms began about the same time that he had the vaccine, maybe a day or 2 after. He denies any chest pain or chest discomfort. He does admit to fever and chills. He does have muscle aches and joint aches. He also has a very harsh mostly dry cough, and shortness of breath on exertion. The patient did not have a primary medical doctor, and he denies any other medical problems. He's been taking Tylenol and Motrin at home. White count 11.9, hemoglobin 14.8, hematocrit 44.9, and platelet count 270,000. D-dimer is 0.71. Sodium 135, potassium 4.7, chlorides 100, CO2 21, anion gap 14, BUN 18, creatinine 0.9. The patient's ferritin level was 1280. AST is 70, ALT is 47, pro-calcitonin level is 0.17. C-reactive protein is 20.7. Coronavirus testing on January 01 was positive. Chest x-ray showed diffuse bilateral infiltrates. CT angiogram was negative for pulmonary embolism but did show typical groundglass opacities consistent with coronavirus pneumonia. On today's evaluation of 01/03/2021, seeing the patient for a follow-up. He is aphasic overnight. The pneumonia was seen index consultation yesterday. The patient received his first dose of vaccination for Covid 19 approximately 2 weeks ago. The patient's CT angiogram showed no evidence of any pulmonary embolism. Nevertheless there was bilateral pulmonary infiltrates consistent with Coumadin. Pneumonia. On today's evaluation, he is on oxygen 6 L per minute with a pulse ox of 92%. He is afebrile hemodynamically stable. His pro- calcitonin level was 0.17. His blood work essentially within normal limits. LDH dropped to 805 and a CRP level dropped down to 5.6. The patient was given Decadron 6 mg IV every 24 hours and the patient was also given Lovenox 40 mg sub cu for DVT prophylaxis. The patient is getting normal saline at the rate of 75 mL an hour. On 01/04/2021 the patient's oxygenation got worse. After being on 6 L of oxygen by nasal cannula, this morning he was found to be hypoxic and he was brought up to 15 L high flow oxygen. His pulse ox is being monitored very closely. Noted the patient is currently being treated with a combination of Decadron 6 mg IV 24 hours and Lovenox 40 mg subcu for DVT prophylaxis. He remains in normal saline at the rate of 75 mL an hour. He is awake and alert and he is able to sit up on a recliner chair. Note that the patient had his symptoms she days after he had his vaccination administered to him for Covid 19. No nausea. No vomiting. No diarrhea. No abdominal pain. No altered mentation. Blood work from today is essentially pending. Nevertheless, his d-dimer is up to 10.7, his LDH level is down to 901 with a CRP of 3.5. Chest x-ray was done today and it showed bilateral pulmonary infiltrates consistent with malignancy related pneumonia with peripheral distribution especially on the left. In comparison, there is multifocal pneumonia with no improvement compared to earlier chest x-rays. Objective - Vital Signs Vital signs: Vital Signs Temp 101.5 F H 01/04/21 11:20 Pulse 117 H 01/04/21 11:20 Resp 23 01/04/21 11:20 BP 125/103 01/04/21 11:20 Pulse Ox 84 L 01/04/21 11:20 Intake & Output 01/03/21 01/04/21 01/04/21 18:59 06:59 18:59 Other: # Voids 1 2 - Exam No acute distress, oriented 3. No audible wheezing, use of accessory muscles, or conversational dyspnea. Saturations are 90-92% on 15 L. HEENT examination is grossly unremarkable. Neck supple. Full range of motion. No adenopathy thyromegaly or neck vein distention. Cardiovascular examination reveals regular rhythm rate. S1-S2 normal. No S3 or S4. No discernible murmur noted. Heart sounds are distant. Heart rate 98 bpm. Lungs reveal coarse bilateral rhonchi. No wheezes or crackles. Breath sounds equal bilaterally. Abdomen soft bowel sounds are heard. No masses or tenderness. Extremities are intact. No cyanosis clubbing or edema. Skin is without rash or lesion. Neurologic examination is brief but nonfocal. - Labs CBC & Chem 7: 01/03/21 07:49 01/03/21 07:49 Labs: Abnormal Lab Results - Last 24 Hours (Table) 01/04/21 01/04/21 Range/Units 05:59 05:59 D-Dimer 10.76 H (<0.60) mg/L FEU Lactate Dehydrogenase 901 H (120-246) U/L C-Reactive Protein 3.50 H (0.00-0.80) mg/dL Microbiology - Last 24 Hours (Table) 01/01/21 16:47 Blood Culture - Preliminary Blood No Growth after 48 hours 01/01/21 16:47 Blood Culture - Preliminary Blood No Growth after 48 hours Assessment and Plan Plan: 1 Acute hypoxemic respiratory failure secondary to coronavirus associated pneumonia. She has still on oxygen and currently is up to 15 L about 2 by nasal cannula. If in mental markers of been improving. Chest x-ray are essentially stable. He is having a low-grade fever of 101.5. 2 acute Covid 19 infection/pneumonia in an individual has received only 1 dose of vaccination 3 Elevated inflammatory marker secondary to coronavirus infection. 4 No pulmonary embolism seen on CT angiogram. 5 No history of other chronic medical problems. Plan: Monitor fever pattern Interval decompensation in his oxygenation, I'm recommending to continue the Decadron and add Baricitinib regarding his Covid 19 related pneumonia. He is currently on 15 L of oxygen by nasal cannula. Inflammatory markers are improving and the LDH is significantly lower and they remain low. Keep the patient on high flow oxygen at 15 L by nasal cannula without the FiO2 to maintain a saturation above 90% Continue with the Decadron 6 mg IV every 24 hours and continue the Lovenox 40 mg subcu daily and the give the patient incentive spirometer We'll continue to follow.
--- NOTE | 2021-01-04 14:33 | US ---
EXAMINATION TYPE: US venous doppler duplex LE DATE OF EXAM: 01/04/2021 12:44 PM COMPARISON: NONE CLINICAL HISTORY: CoVID, hypoxic, elevated d dimer. SOB, Elevated D Dimer SIDE PERFORMED: Bilateral TECHNIQUE: The lower extremity deep venous system is examined utilizing real time linear array sonog marianna with graded compression, doppler sonography and color-flow sonography. VESSELS IMAGED: Common Femoral Vein Deep Femoral Vein Greater Saphenous Vein * Femoral Vein Popliteal Vein Small Saphenous Vein * Proximal Calf Veins (* superficial vessels) Right Leg: Negative for DVT Left Leg: Negative for DVT Grayscale, color doppler, spectral doppler imaging performed of the deep veins of the bilateral lower extremities. There is normal flow, compressibility, vascular waveforms. IMPRESSION: No ultrasound evidence for acute DVT in either lower extremity.
[2021-01-04] MEDS: BARICITINIB 2 MG TABLET PO SCH (15:31)
--- NOTE | 2021-01-04 18:11 | PN ---
PROGRESS NOTE DATE OF SERVICE: 01/04/2021 This 40-year-old gentleman who was admitted with acute hypoxic respiratory failure secondary to COVID-19 pneumonia is being closely monitored. No chest pain. No palpitations. No fever. A venous Doppler was done today which showed no evidence of any DVT. No chest pain. No palpitations. No fever. REVIEW OF SYSTEMS: CARDIOVASCULAR SYSTEM: No angina. RESPIRATION: As mentioned earlier. GI: As mentioned earlier. : No dysuria. NERVOUS SYSTEM: No numbness, weakness. CURRENT MEDICATIONS: Reviewed. They include Tylenol, Ventolin, vitamin C, baricitinib, Lovenox, Pepcid, doses are reviewed. PHYSICAL EXAMINATION: Alert and oriented x3. Pulse 108, blood pressure is 122/82, respiration 18, temperature 97.8, pulse ox 91% on 15 L. HEENT: Conjunctivae normal. NECK: No jugular venous distention. CARDIOVASCULAR: S1, S2 muffled. RESPIRATION: Breath sounds diminished at the bases. Bilateral scattered rhonchi and crackles. ABDOMEN: Soft, nontender. LEGS: No edema. No swelling. NERVOUS SYSTEM: No focal deficit. LABS: WBC 11.07. D-dimer is 1.19. LDH is 805 and procalcitonin is 0.17. COVID is positive. ASSESSMENT: 1. Acute COVID-19 infection with acute bilateral COVID-19 pneumonia with acute hypoxic respiratory failure. 2. Elevated inflammatory markers of COVID-19. 3. Transaminitis. 4. History of obstructive sleep apnea. 5. History of gastroesophageal reflux disease. 6. Obesity with body mass index of 36.9. 7. Elevated white count. 8. Elevated procalcitonin. 9. Elevated D-dimer with no evidence of pulmonary embolism or deep vein thrombosis. 10.Elevated AST. RECOMMENDATIONS AND DISCUSSION: I recommend to continue current medications, continue with symptomatic treatment. Otherwise, chest x-ray reviewed. Patient is currently not on antibiotics. I would repeat pancultures and continue to monitor. Further recommendations to follow. MMODL / IJN: [id number] / JENNIFER
[2021-01-04] MEDS ORDERED: SODIUM CHLORIDE 0.65% NASAL SPRAY 44 ML BTL NASAL PRN (22:00)
[2021-01-05] MEDS: ACETAMINOPHEN TAB 325 MG TAB PO PRN ×2 (02:36→08:11)
[2021-01-05] MEDS: BARICITINIB 2 MG TABLET PO SCH (08:11)
[2021-01-05] MEDS: ENOXAPARIN 40 MG/0.4 ML SYRINGE SQ SCH (08:11)
[2021-01-05] MEDS: ASCORBIC ACID 500 MG TAB PO SCH (08:12)
[2021-01-05] MEDS: FAMOTIDINE 20 MG TAB PO SCH ×2 (08:12→20:10)
[2021-01-05] MEDS: ZINC SULFATE 220 MG CAP PO SCH (08:12)
[2021-01-05] MEDS: CHOLECALCIFEROL 25 MCG (1000 IU) TABLET PO SCH (08:12)
[2021-01-05] MEDS: ALBUTEROL HFA INHALER INHALATION SCH ×3 (08:28→19:56)
[2021-01-05] MEDS: DEXAMETHASONE SOD PHOSPHATE 10 MG/ML 1 ML VIAL IVP SCH (09:32)
[2021-01-05 12:53] LABS: Basophils # (A) 0.04 X 10*3/uL (0.00-0.10); Basophils % (A) 0.4 %; Eosinophils # (A) 0.18 X 10*3/uL (0.04-0.35); Eosinophils % (A) 1.7 %; HCT 44.4 % (39.6-50.0); HGB 14.5 g/dL (13.0-17.0); Lymphocytes # (A) 1.01 X 10*3/uL (0.90-5.00); Lymphocytes % (A) 9.3 %; MCH 26.8 pg (27.0-32.0); MCHC 32.7 g/dL (32.0-37.0); MCV 81.9 fL (80.0-97.0); Mean Platelet Volume 9.7 fL (9.5-12.2); Monocytes # (A) 0.17 X 10*3/uL (0.20-1.00); Monocytes % (A) 1.6 %; Neutrophils # (A) 9.17 X 10*3/uL (1.80-7.70); Platelet Count 203 X 10*3/uL (140-440); RBC 5.42 X 10*6/uL (4.40-5.60); RDW 14.3 % (11.5-14.5)
[2021-01-05 13:34] LABS: African American GFR (CKD) 107.1 (60.0-200.0); Albumin 3.4 g/dL (3.8-4.9); Albumin/Globulin Ratio 1.1 (1.60-3.17); Anion Gap 18.1 mmol/L (4.00-12.00); BUN/Creat Ratio 12.3 Ratio (12.00-20.00); Blood Urea Nitrogen 12.3 mg/dL (9.0-27.0); Calcium 8.5 mg/dL (8.7-10.3); Carbon Dioxide 16.9 mmol/L (21.6-31.8); Globulin 3.1 g/dL (1.6-3.3); Non-African American GFR(CKD) 92.4 (60.0-200.0); Potassium 4.3 mmol/L (3.5-5.5); Total Bilirubin 0.6 mg/dL (0.30-1.20); Total Protein 6.5 g/dL (6.2-8.2)
--- NOTE | 2021-01-05 13:58 | XR ---
EXAMINATION TYPE: XR chest 1V DATE OF EXAM: 01/05/2021 COMPARISON: 01/04/2021 HISTORY: 40-year-old male COVID and cough TECHNIQUE: Single frontal view of the chest is obtained. FINDINGS: Extensive bilateral patchy infiltrates and consolidation has increased from prior. No pneu mothorax or pleural effusion. Heart upper limits of normal in size. IMPRESSION: Worsening bilateral COVID air space disease.
--- NOTE | 2021-01-05 14:37 | P.PN ---
Subjective Progress Note Date: 01/05/21 This is a 40-year-old white male, who presents to the emergency department on January 01, complaining of shortness of breath, fever, muscle aches, harsh cough, and generalized weakness. Apparently his was admitted to the hospital 2 days ago, with coronavirus. The patient had his first vaccination against coronavirus, almost 2 weeks ago. His symptoms began about the same time that he had the vaccine, maybe a day or 2 after. He denies any chest pain or chest discomfort. He does admit to fever and chills. He does have muscle aches and joint aches. He also has a very harsh mostly dry cough, and shortness of breath on exertion. The patient did not have a primary medical doctor, and he denies any other medical problems. He's been taking Tylenol and Motrin at home. White count 11.9, hemoglobin 14.8, hematocrit 44.9, and platelet count 270,000. D-dimer is 0.71. Sodium 135, potassium 4.7, chlorides 100, CO2 21, anion gap 14, BUN 18, creatinine 0.9. The patient's ferritin level was 1280. AST is 70, ALT is 47, pro-calcitonin level is 0.17. C-reactive protein is 20.7. Coronavirus testing on January 01 was positive. Chest x-ray showed diffuse bilateral infiltrates. CT angiogram was negative for pulmonary embolism but did show typical groundglass opacities consistent with coronavirus pneumonia. On today's evaluation of 01/03/2021, seeing the patient for a follow-up. He is aphasic overnight. The pneumonia was seen index consultation yesterday. The patient received his first dose of vaccination for Covid 19 approximately 2 weeks ago. The patient's CT angiogram showed no evidence of any pulmonary embolism. Nevertheless there was bilateral pulmonary infiltrates consistent with Coumadin. Pneumonia. On today's evaluation, he is on oxygen 6 L per minute with a pulse ox of 92%. He is afebrile hemodynamically stable. His pro- calcitonin level was 0.17. His blood work essentially within normal limits. LDH dropped to 805 and a CRP level dropped down to 5.6. The patient was given Decadron 6 mg IV every 24 hours and the patient was also given Lovenox 40 mg sub cu for DVT prophylaxis. The patient is getting normal saline at the rate of 75 mL an hour. On 01/04/2021 the patient's oxygenation got worse. After being on 6 L of oxygen by nasal cannula, this morning he was found to be hypoxic and he was brought up to 15 L high flow oxygen. His pulse ox is being monitored very closely. Noted the patient is currently being treated with a combination of Decadron 6 mg IV 24 hours and Lovenox 40 mg subcu for DVT prophylaxis. He remains in normal saline at the rate of 75 mL an hour. He is awake and alert and he is able to sit up on a recliner chair. Note that the patient had his symptoms she days after he had his vaccination administered to him for Covid 19. No nausea. No vomiting. No diarrhea. No abdominal pain. No altered mentation. Blood work from today is essentially pending. Nevertheless, his d-dimer is up to 10.7, his LDH level is down to 901 with a CRP of 3.5. Chest x-ray was done today and it showed bilateral pulmonary infiltrates consistent with malignancy related pneumonia with peripheral distribution especially on the left. In comparison, there is multifocal pneumonia with no improvement compared to earlier chest x-rays. On today's evaluation of 01/05/2021 patient is doing well and the patient has no specific complaints. The patient is currently on 10 L of Oxymizer cannula. Note that yesterday's condition decompensated. He was placed on 15 L and after some improvement, is down to 10 L nasal cannula. Doing well. He is on Decadron 6 g IV daily and Lovenox 40 mg subcu on a daily basis. No nausea. No vomiting. No diarrhea. No abdominal pain. No chest pain. No altered mentation. He is able to sit up on a chair. His white count was attempted without a hemoglobin of 14.5. The patient's serum bicarbonate 16 and his sodium level is at 134. D- dimer from 12/04/2020 was 10.7. The patient remains on normal saline at the rate of 75 mL an hour Objective - Vital Signs Vital signs: Vital Signs Temp 98.5 F 01/05/21 09:25 Pulse 120 H 01/05/21 09:25 Resp 18 01/05/21 09:25 BP 131/78 01/05/21 09:25 Pulse Ox 91 L 01/05/21 13:12 Intake & Output 01/04/21 01/05/21 01/05/21 18:59 06:59 18:59 Output Total 600 Balance -600 Output: Urine 600 Other: # Voids 2 - Exam No acute distress, oriented 3. No audible wheezing, use of accessory muscles, or conversational dyspnea. Saturations are 90-92% on 10 L. HEENT examination is grossly unremarkable. Neck supple. Full range of motion. No adenopathy thyromegaly or neck vein distention. Cardiovascular examination reveals regular rhythm rate. S1-S2 normal. No S3 or S4. No discernible murmur noted. Heart sounds are distant. Heart rate 98 bpm. Lungs reveal coarse bilateral rhonchi. No wheezes or crackles. Breath sounds equal bilaterally. Abdomen soft bowel sounds are heard. No masses or tenderness. Extremities are intact. No cyanosis clubbing or edema. Skin is without rash or lesion. Neurologic examination is brief but nonfocal. - Labs CBC & Chem 7: 01/05/21 06:36 01/05/21 06:36 Labs: Abnormal Lab Results - Last 24 Hours (Table) 01/04/21 01/05/21 01/05/21 Range/Units 19:01 06:36 06:36 WBC 10.90 H (4.50-10.00) X 10*3/uL MCH 26.8 L (27.0-32.0) pg Immature Gran # 0.33 H (0.00-0.04) X 10*3/uL Neutrophils # 9.17 H (1.80-7.70) X 10*3/uL Monocytes # 0.17 L (0.20-1.00) X 10*3/uL Sodium 134 L (135-145) mmol/L Carbon Dioxide 16.9 L (21.6-31.8) mmol/L Anion Gap 18.10 H (4.00-12.00) mmol/L Calcium 8.5 L (8.7-10.3) mg/dL AST 71 H (14-35) U/L ALT 60 H (10-49) U/L Albumin 3.4 L (3.8-4.9) g/dL Albumin/Globulin Ratio 1.10 L (1.60-3.17) g/dL Procalcitonin 0.13 H (0.02-0.09) ng/mL Microbiology - Last 24 Hours (Table) 01/01/21 16:47 Blood Culture - Preliminary Blood No Growth after 72 hours 01/01/21 16:47 Blood Culture - Preliminary Blood No Growth after 72 hours Assessment and Plan Plan: 1 Acute hypoxemic respiratory failure secondary to coronavirus associated erika mcgill. She has still on oxygen and currently is up to 15 L about 2 by nasal cannula. If in mental markers of been improving. Chest x-ray are essentially stable. He is having a low-grade fever of 101.5. The patient is slightly improved compared to yesterday and the patient is currently down to 10 L by nasal cannula. 2 acute Covid 19 infection/pneumonia in an individual has received only 1 dose of vaccination 3 Elevated inflammatory marker secondary to coronavirus infection. 4 No pulmonary embolism seen on CT angiogram. 5 No history of other chronic medical problems. Plan: Monitor fever pattern Interval decompensation in his oxygenation, I'm recommending to continue the Decadron and add Baricitinib regarding his Covid 19 related pneumonia Continue with the Decadron 6 mg IV every 24 hours and continue the Lovenox 40 mg subcu daily and the give the patient incentive spirometer We'll continue to follow. Clinically somewhat improved compared to yesterday. He was on 15 L and currently is down to 10 L. He is afebrile for now. He is hemodynamically stable. We'll continue to follow. The patient underwent a markers and chest x-ray in a.m.
[2021-01-05] MEDS: SODIUM CHLORIDE 0.9% 1,000 ML IV SCH (18:07)
--- NOTE | 2021-01-05 21:07 | PN ---
PROGRESS NOTE DATE OF SERVICE: 01/05/2021 This 40-year-old gentleman who was admitted with acute hypoxic respiratory failure secondary to Covid 19 pneumonia is being closely monitored. The patient is extremely short of breath at this time. The chest x-ray showed bilateral lesions and the patient is on 13 L high-flow oxygen and the patient is saturating at 85%. The patient being closely monitored. The white count is 10.9, and D-dimer is 10.76. Inflammatory markers, Covid 19 is elevated. Procalcitonin is 0.13. The patient has received baricitinib. Most recent chest x-ray which was reviewed personally by me showed bilateral interstitial shadows which is significantly worse and predominantly in both lower lobes. Multiple consultants including Dr. Moran following the patient closely. PAST MEDICAL HISTORY: Reviewed. REVIEW OF SYSTEMS: Cardiovascular: No angina. Respiration mentioned earlier. GI: As mentioned earlier. : No dysuria. CURRENT MEDICATIONS: Tylenol, Ventolin, vitamin C, baricitinib, Lovenox, Pepcid. Doses and other medications reviewed. PHYSICAL EXAMINATION: The patient is alert and oriented times three. Pulse 102. Blood pressure is 160/81. Respirations 18. Temperature 98.3, pulse ox 85 percent on 13 L. HEENT: Conjunctivae normal. NECK: No JVD. CARDIOVASCULAR: S1, S2 muffled. RESPIRATORY SYSTEM: Breath sounds diminished at the bases. A few scattered rhonchi. ABDOMEN: Soft. NERVOUS SYSTEM: Diffusely weak. LABS: WBC 10.9, hemoglobin 14.2. Sodium 134, potassium 4.2. ASSESSMENT: 1. Acute Covid 19 infection with acute bilateral Covid 19 interstitial pneumonia with acute hypoxic respiratory failure. 2. Elevated inflammatory markers of Covid 19. 3. Transaminitis. 4. History of obstructive sleep apnea. 5. History of gastroesophageal reflux disease. 6. Obesity with body mass index of 36.9. 7. Elevated WBC. 8. Elevated procalcitonin. 9. Elevated D-dimer without any evidence of pulmonary embolism or deep vein thrombosis. 10.Elevated AST. 11.Diarrhea, possibly gastric manifestation of Covid 19. RECOMMENDATIONS AND DISCUSSION: This 40-year-old gentleman presented with multiple complex medical issues, we will monitor the patient closely, continue the current medications, management and symptomatic treatment. Otherwise, I would closely follow. Repeat labs will be ordered. D-dimer is significantly elevated. The patient is currently on Lovenox 40 mg subcu daily. As mentioned earlier, the patient had venous Doppler study and as well as chest CTA showed no evidence of any thrombotic disorder currently. Prognosis guarded. Further recommendations to follow. MMODL / ELIDAN: [id number] /
[2021-01-06] MEDS: SODIUM CHLORIDE 0.9% 1,000 ML IV SCH ×2 (04:41→15:24)
[2021-01-06] MEDS: ACETAMINOPHEN TAB 325 MG TAB PO PRN (05:49)
[2021-01-06] MEDS: ALBUTEROL HFA INHALER INHALATION SCH ×3 (07:37→20:40)
[2021-01-06] MEDS: CHOLECALCIFEROL 25 MCG (1000 IU) TABLET PO SCH (09:09)
[2021-01-06] MEDS: ASCORBIC ACID 500 MG TAB PO SCH (09:09)
[2021-01-06] MEDS: FAMOTIDINE 20 MG TAB PO SCH ×2 (09:09→20:02)
[2021-01-06] MEDS: ZINC SULFATE 220 MG CAP PO SCH (09:09)
[2021-01-06] MEDS: ENOXAPARIN 40 MG/0.4 ML SYRINGE SQ SCH (09:09)
[2021-01-06] MEDS: DEXAMETHASONE SOD PHOSPHATE 10 MG/ML 1 ML VIAL IVP SCH (09:19)
[2021-01-06 09:50] LABS: African American GFR (CKD) >90 (>60 ml/min/1.73 sqM); Anion Gap 10 mmol/L; Blood Urea Nitrogen 15 mg/dL (9-20); Carbon Dioxide 21 mmol/L (22-30); Chloride 104 mmol/L (98-107); Glucose 131 mg/dL (74-99); Potassium 4.1 mmol/L (3.5-5.1); Sodium 135 mmol/L (137-145)
[2021-01-06 09:51] LABS: ALT 49 U/L (4-49); AST 62 U/L (17-59); Albumin 2.9 g/dL (3.5-5.0); Albumin/Globulin Ratio 0.9; Alkaline Phosphatase 64 U/L (38-126); Basophils % (A) 0 %; Calcium 8.5 mg/dL (8.4-10.2); Eosinophils # (A) 0.2 k/uL (0-0.7); Eosinophils % (A) 2 %; Globulin 3.3 g/dL; HCT 42.5 % (39.0-53.0); HGB 14.7 gm/dL (13.0-17.5); Lymphocytes # (A) 1.1 k/uL (1.0-4.8); Lymphocytes % (A) 8 %; MCH 28.2 pg (25.0-35.0); MCHC 34.5 g/dL (31.0-37.0); MCV 81.6 fL (80.0-100.0); Mean Platelet Volume 7.9; Monocytes # (A) 0.4 k/uL (0-1.0); Monocytes % (A) 3 %; Neutrophils # (A) 12.6 k/uL (1.3-7.7); Neutrophils % (A) 87 %; Non-African American GFR(CKD) >90 (>60 ml/min/1.73 sqM); Platelet Count 252 k/uL (150-450); RBC 5.21 m/uL (4.30-5.90); RDW 14.2 % (11.5-15.5); Total Bilirubin 0.6 mg/dL (0.2-1.3); Total Protein 6.2 g/dL (6.3-8.2); WBC 14.5 k/uL (3.8-10.6)
[2021-01-06 13:40] VITALS: BMI 35.9
[2021-01-06] MEDS: BARICITINIB 2 MG TABLET PO SCH (14:04)
[2021-01-06] MEDS ORDERED: FUROSEMIDE 10 MG/ML 4 ML VIAL IV STA (15:33)
--- NOTE | 2021-01-06 15:33 | P.PN ---
Subjective Progress Note Date: 01/06/21 This is a 40-year-old white male, who presents to the emergency department on January 01, complaining of shortness of breath, fever, muscle aches, harsh cough, and generalized weakness. Apparently his was admitted to the hospital 2 days ago, with coronavirus. The patient had his first vaccination against coronavirus, almost 2 weeks ago. His symptoms began about the same time that he had the vaccine, maybe a day or 2 after. He denies any chest pain or chest discomfort. He does admit to fever and chills. He does have muscle aches and joint aches. He also has a very harsh mostly dry cough, and shortness of breath on exertion. The patient did not have a primary medical doctor, and he denies any other medical problems. He's been taking Tylenol and Motrin at home. White count 11.9, hemoglobin 14.8, hematocrit 44.9, and platelet count 270,000. D-dimer is 0.71. Sodium 135, potassium 4.7, chlorides 100, CO2 21, anion gap 14, BUN 18, creatinine 0.9. The patient's ferritin level was 1280. AST is 70, ALT is 47, pro-calcitonin level is 0.17. C-reactive protein is 20.7. Coronavirus testing on January 01 was positive. Chest x-ray showed diffuse bilateral infiltrates. CT angiogram was negative for pulmonary embolism but did show typical groundglass opacities consistent with coronavirus pneumonia. On today's evaluation of 01/03/2021, seeing the patient for a follow-up. He is aphasic overnight. The pneumonia was seen index consultation yesterday. The patient received his first dose of vaccination for Covid 19 approximately 2 weeks ago. The patient's CT angiogram showed no evidence of any pulmonary embolism. Nevertheless there was bilateral pulmonary infiltrates consistent with Coumadin. Pneumonia. On today's evaluation, he is on oxygen 6 L per minute with a pulse ox of 92%. He is afebrile hemodynamically stable. His pro- calcitonin level was 0.17. His blood work essentially within normal limits. LDH dropped to 805 and a CRP level dropped down to 5.6. The patient was given Decadron 6 mg IV every 24 hours and the patient was also given Lovenox 40 mg sub cu for DVT prophylaxis. The patient is getting normal saline at the rate of 75 mL an hour. On 01/04/2021 the patient's oxygenation got worse. After being on 6 L of oxygen by nasal cannula, this morning he was found to be hypoxic and he was brought up to 15 L high flow oxygen. His pulse ox is being monitored very closely. Noted the patient is currently being treated with a combination of Decadron 6 mg IV 24 hours and Lovenox 40 mg subcu for DVT prophylaxis. He remains in normal saline at the rate of 75 mL an hour. He is awake and alert and he is able to sit up on a recliner chair. Note that the patient had his symptoms she days after he had his vaccination administered to him for Covid 19. No nausea. No vomiting. No diarrhea. No abdominal pain. No altered mentation. Blood work from today is essentially pending. Nevertheless, his d-dimer is up to 10.7, his LDH level is down to 901 with a CRP of 3.5. Chest x-ray was done today and it showed bilateral pulmonary infiltrates consistent with malignancy related pneumonia with peripheral distribution especially on the left. In comparison, there is multifocal pneumonia with no improvement compared to earlier chest x-rays. On today's evaluation of 01/05/2021 patient is doing well and the patient has no specific complaints. The patient is currently on 10 L of Oxymizer cannula. Note that yesterday's condition decompensated. He was placed on 15 L and after some improvement, is down to 10 L nasal cannula. Doing well. He is on Decadron 6 g IV daily and Lovenox 40 mg subcu on a daily basis. No nausea. No vomiting. No diarrhea. No abdominal pain. No chest pain. No altered mentation. He is able to sit up on a chair. His white count was attempted without a hemoglobin of 14.5. The patient's serum bicarbonate 16 and his sodium level is at 134. D- dimer from 12/04/2020 was 10.7. The patient remains on normal saline at the rate of 75 mL an hour 01/06/2021, seeing the patient for a follow-up. The patient is trying to wean his FiO2 any further. He is currently on 14 L per minute nasal cannula. His pulse ox is around 89%. Clinically, he is doing well. No interval worsening shortness of breath. I would say he is essentially the same as yesterday. No fever or chills. Tolerating his diet. No chest pain. His cough is dry.In terms of his blood work, the white cell count of 14.5 with a hemoglobin of 14.7, his sodium levels at 135 and his creatinine is stable at 0.7. Electrodes are all within normal limits. Pro-calcitonin level was 0.13. The patient remains on a combination of Decadron and he is also on Lovenox 40 mg subcu for DVT prophylaxis. IV fluids are still running at 70. This can be tapered off. Objective - Vital Signs Vital signs: Vital Signs Temp 98.1 F 01/06/21 13:14 Pulse 114 H 01/06/21 13:14 Resp 20 01/06/21 13:14 BP 138/80 01/06/21 13:14 Pulse Ox 89 L 01/06/21 13:14 Intake & Output 01/05/21 01/06/21 01/06/21 18:59 06:59 18:59 Intake Total 300 300 Output Total 1600 275 Balance -1300 25 Weight 113.398 kg Intake: Oral 300 300 Output: Urine 1600 275 Other: # Voids 3 2 - Exam No acute distress, oriented 3. No audible wheezing, use of accessory muscles, or conversational dyspnea. Saturations are 90-92% on 10-14 L. HEENT examination is grossly unremarkable. Neck supple. Full range of motion. No adenopathy thyromegaly or neck vein distention. Cardiovascular examination reveals regular rhythm rate. S1-S2 normal. No S3 or S4. No discernible murmur noted. Heart sounds are distant. Heart rate 98 bpm. Lungs reveal coarse bilateral rhonchi. No wheezes or crackles. Breath sounds equal bilaterally. Abdomen soft bowel sounds are heard. No masses or tenderness. Extremities are intact. No cyanosis clubbing or edema. Skin is without rash or lesion. Neurologic examination is brief but nonfocal. - Labs CBC & Chem 7: 01/06/21 08:04 01/06/21 08:04 Labs: Abnormal Lab Results - Last 24 Hours (Table) 01/06/21 01/06/21 Range/Units 08:04 08:04 WBC 14.5 H (3.8-10.6) k/uL Neutrophils # 12.6 H (1.3-7.7) k/uL Sodium 135 L (137-145) mmol/L Carbon Dioxide 21 L (22-30) mmol/L Glucose 131 H (74-99) mg/dL AST 62 H (17-59) U/L Total Protein 6.2 L (6.3-8.2) g/dL Albumin 2.9 L (3.5-5.0) g/dL Microbiology - Last 24 Hours (Table) 01/04/21 19:01 Blood Culture - Preliminary Blood No Growth after 24 hours 01/01/21 16:47 Blood Culture - Preliminary Blood No Growth after 96 hours 01/01/21 16:47 Blood Culture - Preliminary Blood No Growth after 96 hours Assessment and Plan Plan: 1 Acute hypoxemic respiratory failure secondary to coronavirus associated pneumonia. She has still on oxygen and currently is up to 15 L about 2 by nasal cannula. markers of been improving. Chest x-ray are essentially stable. He is stable and there is no interval worsening compared to yesterday. Oxygen flows ranging between 10 and 15 L. He continues to have a dry cough. No interval worsening his condition. Is a bit agitated because of staying in the hospital for long period of time. 2 acute Covid 19 infection/pneumonia in an individual has received only 1 dose of vaccination 3 Elevated inflammatory marker secondary to coronavirus infection. 4 No pulmonary embolism seen on CT angiogram. 5 No history of other chronic medical problems. Plan: Monitor fever pattern Interval decompensation in his oxygenation, I'm recommending to continue the Decadron and add Baricitinib regarding his Covid 19 related pneumonia Continue with the Decadron 6 mg IV every 24 hours and continue the Lovenox 40 mg subcu daily and the give the patient incentive spirometer We'll continue to follow. Clinically somewhat improved compared to yesterday. Continue titrating down the oxygen flow to maintain a saturation above 90%. He is slow to progress. We'll continue to follow. No interval worsening in his condition. He is currently stable. IV fluids to KVO Give the patient 40 mg of IV Lasix 1 and this can be repeated if continues to have significant amount of fluid retention We'll continue to follow May discontinue the telemetry
--- NOTE | 2021-01-06 21:22 | PN ---
PROGRESS NOTE DATE OF SERVICE: 01/06/2021. This 40-year-old gentleman who was admitted with acute Covid 19 infection, acute bilateral interstitial pneumonia is being closely monitored. No chest pain. No palpitations. No fever. PHYSICAL EXAMINATION: Alert and oriented times three. Pulse 100, blood pressure 134/90, respiration 17, temperature 98.2, pulse ox 89 percent on 14 L nasal cannula. HEENT: Conjunctivae normal. Neck: No jugular venous distention. Cardiovascular: S1, S2. Respirations: Breath sounds diminished in the bases. A few scattered rhonchi and crackles. Abdomen: Soft, nontender. Legs are no edema. No swelling. Nervous system: No focal deficits. LABS: WBC 14.2, hemoglobin 14.7, sodium 135. ASSESSMENT: 1. Acute Covid 19 infection with acute bilateral Covid 19 interstitial pneumonia with acute hypoxic respiratory failure. 2. Elevated inflammatory markers, Covid 19. 3. Transaminitis. 4. History of obstructive sleep apnea. 5. History of gastroesophageal reflux disease. 6. Obesity with body mass index 36.9. 7. Elevated WBC. 8. Elevated procalcitonin. 9. Elevated D-dimer without any evidence of pulmonary embolism or deep vein thrombosis. 10.Elevated AST. 11.Diarrhea, possibly gastric manifestation of Covid 19. RECOMMENDATIONS AND DISCUSSION: Recommend to continue current medications, management and symptomatic treatment. Continue with Lovenox. Continue the rest of medications. Closely follow with Pulmonary. The patient is still on the oxygen. We will try to titrate down. Further recommendations to follow. MMODL / IJN: [id number] /
[2021-01-07] MEDS: ASCORBIC ACID 500 MG TAB PO SCH (08:24)
[2021-01-07] MEDS: FAMOTIDINE 20 MG TAB PO SCH ×2 (08:24→21:21)
[2021-01-07] MEDS: ENOXAPARIN 40 MG/0.4 ML SYRINGE SQ SCH (08:24)
[2021-01-07] MEDS: DEXAMETHASONE SOD PHOSPHATE 10 MG/ML 1 ML VIAL IVP SCH (08:24)
[2021-01-07] MEDS: ZINC SULFATE 220 MG CAP PO SCH (08:24)
[2021-01-07] MEDS: CHOLECALCIFEROL 25 MCG (1000 IU) TABLET PO SCH (08:24)
[2021-01-07] MEDS: ALBUTEROL HFA INHALER INHALATION SCH ×3 (09:02→19:31)
[2021-01-07 09:04] LABS: Basophils % (A) 0 %; Eosinophils # (A) 0.2 k/uL (0-0.7); Eosinophils % (A) 2 %; HCT 42.8 % (39.0-53.0); HGB 14.1 gm/dL (13.0-17.5); Lymphocytes # (A) 1.1 k/uL (1.0-4.8); Lymphocytes % (A) 9 %; MCH 27.3 pg (25.0-35.0); MCV 82.7 fL (80.0-100.0); Mean Platelet Volume 7.6; Monocytes # (A) 0.4 k/uL (0-1.0); Monocytes % (A) 3 %; Neutrophils # (A) 11.6 k/uL (1.3-7.7); Neutrophils % (A) 86 %; Platelet Count 280 k/uL (150-450); RBC 5.17 m/uL (4.30-5.90); RDW 13.6 % (11.5-15.5); WBC 13.4 k/uL (3.8-10.6)
[2021-01-07 09:26] LABS: ALT 63 U/L (4-49); AST 64 U/L (17-59); African American GFR (CKD) >90 (>60 ml/min/1.73 sqM); Albumin/Globulin Ratio 0.9; Alkaline Phosphatase 62 U/L (38-126); Anion Gap 9 mmol/L; Blood Urea Nitrogen 17 mg/dL (9-20); Calcium 8.5 mg/dL (8.4-10.2); Carbon Dioxide 24 mmol/L (22-30); Chloride 100 mmol/L (98-107); Globulin 3.3 g/dL; Glucose 110 mg/dL (74-99); Non-African American GFR(CKD) >90 (>60 ml/min/1.73 sqM); Potassium 4.1 mmol/L (3.5-5.1); Sodium 133 mmol/L (137-145); Total Bilirubin 0.6 mg/dL (0.2-1.3); Total Protein 6.3 g/dL (6.3-8.2)
[2021-01-07] MEDS: SODIUM CHLORIDE 0.9% 1,000 ML IV SCH (12:31)
[2021-01-07] MEDS ORDERED: FUROSEMIDE 10 MG/ML 4 ML VIAL IV STA (14:32)
--- NOTE | 2021-01-07 14:32 | P.PN ---
Subjective Progress Note Date: 01/07/21 This is a 40-year-old white male, who presents to the emergency department on January 01, complaining of shortness of breath, fever, muscle aches, harsh cough, and generalized weakness. Apparently his was admitted to the hospital 2 days ago, with coronavirus. The patient had his first vaccination against coronavirus, almost 2 weeks ago. His symptoms began about the same time that he had the vaccine, maybe a day or 2 after. He denies any chest pain or chest discomfort. He does admit to fever and chills. He does have muscle aches and joint aches. He also has a very harsh mostly dry cough, and shortness of breath on exertion. The patient did not have a primary medical doctor, and he denies any other medical problems. He's been taking Tylenol and Motrin at home. White count 11.9, hemoglobin 14.8, hematocrit 44.9, and platelet count 270,000. D-dimer is 0.71. Sodium 135, potassium 4.7, chlorides 100, CO2 21, anion gap 14, BUN 18, creatinine 0.9. The patient's ferritin level was 1280. AST is 70, ALT is 47, pro-calcitonin level is 0.17. C-reactive protein is 20.7. Coronavirus testing on January 01 was positive. Chest x-ray showed diffuse bilateral infiltrates. CT angiogram was negative for pulmonary embolism but did show typical groundglass opacities consistent with coronavirus pneumonia. On today's evaluation of 01/03/2021, seeing the patient for a follow-up. He is aphasic overnight. The pneumonia was seen index consultation yesterday. The patient received his first dose of vaccination for Covid 19 approximately 2 weeks ago. The patient's CT angiogram showed no evidence of any pulmonary embolism. Nevertheless there was bilateral pulmonary infiltrates consistent with Coumadin. Pneumonia. On today's evaluation, he is on oxygen 6 L per minute with a pulse ox of 92%. He is afebrile hemodynamically stable. His pro- calcitonin level was 0.17. His blood work essentially within normal limits. LDH dropped to 805 and a CRP level dropped down to 5.6. The patient was given Decadron 6 mg IV every 24 hours and the patient was also given Lovenox 40 mg sub cu for DVT prophylaxis. The patient is getting normal saline at the rate of 75 mL an hour. On 01/04/2021 the patient's oxygenation got worse. After being on 6 L of oxygen by nasal cannula, this morning he was found to be hypoxic and he was brought up to 15 L high flow oxygen. His pulse ox is being monitored very closely. Noted the patient is currently being treated with a combination of Decadron 6 mg IV 24 hours and Lovenox 40 mg subcu for DVT prophylaxis. He remains in normal saline at the rate of 75 mL an hour. He is awake and alert and he is able to sit up on a recliner chair. Note that the patient had his symptoms she days after he had his vaccination administered to him for Covid 19. No nausea. No vomiting. No diarrhea. No abdominal pain. No altered mentation. Blood work from today is essentially pending. Nevertheless, his d-dimer is up to 10.7, his LDH level is down to 901 with a CRP of 3.5. Chest x-ray was done today and it showed bilateral pulmonary infiltrates consistent with malignancy related pneumonia with peripheral distribution especially on the left. In comparison, there is multifocal pneumonia with no improvement compared to earlier chest x-rays. On today's evaluation of 01/05/2021 patient is doing well and the patient has no specific complaints. The patient is currently on 10 L of Oxymizer cannula. Note that yesterday's condition decompensated. He was placed on 15 L and after some improvement, is down to 10 L nasal cannula. Doing well. He is on Decadron 6 g IV daily and Lovenox 40 mg subcu on a daily basis. No nausea. No vomiting. No diarrhea. No abdominal pain. No chest pain. No altered mentation. He is able to sit up on a chair. His white count was attempted without a hemoglobin of 14.5. The patient's serum bicarbonate 16 and his sodium level is at 134. D- dimer from 12/04/2020 was 10.7. The patient remains on normal saline at the rate of 75 mL an hour 01/06/2021, seeing the patient for a follow-up. The patient is trying to wean his FiO2 any further. He is currently on 14 L per minute nasal cannula. His pulse ox is around 89%. Clinically, he is doing well. No interval worsening shortness of breath. I would say he is essentially the same as yesterday. No fever or chills. Tolerating his diet. No chest pain. His cough is dry.In terms of his blood work, the white cell count of 14.5 with a hemoglobin of 14.7, his sodium levels at 135 and his creatinine is stable at 0.7. Electrodes are all within normal limits. Pro-calcitonin level was 0.13. The patient remains on a combination of Decadron and he is also on Lovenox 40 mg subcu for DVT prophylaxis. IV fluids are still running at 70. This can be tapered off. 01/07/2021 the patient is being seen for a follow-up. His condition remains stable. His oxygenation is ranging between 13 and 15 L per minute nasal cannula. His pulse ox drops with mobility and activity and subsequently recovers. He has no other complaints. He is on Decadron 6 moving arms IV on a daily basis and the patient is also on Lovenox for DVT prophylaxis. The patient is supposed to be also on Baricitinib per protocol. The patient was taken off his IV fluids yesterday. He was given a dose of Lasix and he diuresed significantly since. On his blood work today, the patient has a white cell count of 15.4 with a hemoglobin of 14. His sodium level is at 133. Renal function shows a BUN of 17 with a creatinine of 0.8. Inflammatory markers have not been checked for few days. He is afebrile. The pro calcitonin level was 0.13. Otherwise, no other significant events. Objective - Vital Signs Vital signs: Vital Signs Temp 98.1 F 01/07/21 12:28 Pulse 117 H 01/07/21 12:28 Resp 24 01/07/21 12:28 BP 145/78 01/07/21 12:28 Pulse Ox 87 L 01/07/21 06:11 Intake & Output 01/06/21 01/07/21 01/07/21 18:59 06:59 18:59 Weight 113.398 kg Other: Voiding Method Toilet Toilet Urinal Urinal # Voids 2 3 - Exam No acute distress, oriented 3. No audible wheezing, use of accessory muscles, or conversational dyspnea. Saturations are 90-92% on 10-14 L. HEENT examination is grossly unremarkable. Neck supple. Full range of motion. No adenopathy thyromegaly or neck vein distention. Cardiovascular examination reveals regular rhythm rate. S1-S2 normal. No S3 or S4. No discernible murmur noted. Heart sounds are distant. Heart rate 98 bpm. Lungs reveal coarse bilateral rhonchi. No wheezes or crackles. Breath sounds equal bilaterally. Abdomen soft bowel sounds are heard. No masses or tenderness. Extremities are intact. No cyanosis clubbing or edema. Skin is without rash or lesion. Neurologic examination is brief but nonfocal. - Labs CBC & Chem 7: 01/07/21 08:01 01/07/21 08:01 Labs: Abnormal Lab Results - Last 24 Hours (Table) 01/07/21 01/07/21 Range/Units 08:01 08:01 WBC 13.4 H (3.8-10.6) k/uL Neutrophils # 11.6 H (1.3-7.7) k/uL Sodium 133 L (137-145) mmol/L Glucose 110 H (74-99) mg/dL AST 64 H (17-59) U/L ALT 63 H (4-49) U/L Albumin 3.0 L (3.5-5.0) g/dL Microbiology - Last 24 Hours (Table) 01/04/21 19:01 Blood Culture - Preliminary Blood No Growth after 48 hours 01/01/21 16:47 Blood Culture - Preliminary Blood No Growth after 120 hours 01/01/21 16:47 Blood Culture - Preliminary Blood No Growth after 120 hours Assessment and Plan Plan: 1 Acute hypoxemic respiratory failure secondary to coronavirus associated pneumonia. She has still on oxygen and currently is up to 15 L about 2 by nasal cannula. markers of been improving. Chest x-ray are essentially stable. He is stable and there is no interval worsening compared to yesterday. Oxygen flows ranging between 10 and 15 L. He continues to have a dry cough. No interval worsening his condition. Is a bit agitated because of staying in the hospital for long period of time.on today's evaluation however, the patient's condition is stable. He is currently on 15 L of oxygen by nasal cannula. He remains on the same regimen. He was diuresed IV Lasix yesterday. 2 acute Covid 19 infection/pneumonia in an individual has received only 1 dose of vaccination 3 Elevated inflammatory marker secondary to coronavirus infection. 4 No pulmonary embolism seen on CT angiogram. 5 No history of other chronic medical problems. Plan: Monitor fever pattern Interval decompensation in his oxygenation, I'm recommending to continue the Decadron and add Baricitinib regarding his Covid 19 related pneumonia Continue with the Decadron 6 mg IV every 24 hours and continue the Lovenox 40 mg subcu daily and the give the patient incentive spirometer We'll continue to follow. Clinically somewhat improved compared to yesterday. Continue titrating down the oxygen flow to maintain a saturation above 90%. He is slow to progress. We'll continue to follow. No interval worsening in his condition. He is currently stable. IV fluids to KVO he responded well to diuretics We'll repeat inflammatory markers for tomorrow including LDH and CRP We'll gradually try to wean down FiO2 to maintain saturation above 90%. Currently on 13 L We'll continue to follow May discontinue the telemetry
[2021-01-07] MEDS: BARICITINIB 2 MG TABLET PO SCH (14:39)
[2021-01-08] MEDS: ACETAMINOPHEN TAB 325 MG TAB PO PRN (06:29)
[2021-01-08] MEDS: ZINC SULFATE 220 MG CAP PO SCH (08:36)
[2021-01-08] MEDS: DEXAMETHASONE SOD PHOSPHATE 10 MG/ML 1 ML VIAL IVP SCH (08:36)
[2021-01-08] MEDS: CHOLECALCIFEROL 25 MCG (1000 IU) TABLET PO SCH (08:36)
[2021-01-08] MEDS: ENOXAPARIN 40 MG/0.4 ML SYRINGE SQ SCH (08:36)
[2021-01-08] MEDS: ASCORBIC ACID 500 MG TAB PO SCH (08:36)
[2021-01-08] MEDS: FAMOTIDINE 20 MG TAB PO SCH ×2 (08:36→22:20)
[2021-01-08] MEDS: ALBUTEROL HFA INHALER INHALATION SCH ×3 (09:10→20:10)
[2021-01-08 11:26] LABS: ALT 86 U/L (4-49); AST 80 U/L (17-59); African American GFR (CKD) >90 (>60 ml/min/1.73 sqM); Albumin 3.1 g/dL (3.5-5.0); Albumin/Globulin Ratio 0.9; Alkaline Phosphatase 63 U/L (38-126); Anion Gap 10 mmol/L; Blood Urea Nitrogen 18 mg/dL (9-20); Calcium 8.5 mg/dL (8.4-10.2); Carbon Dioxide 22 mmol/L (22-30); Chloride 98 mmol/L (98-107); Globulin 3.4 g/dL; Glucose 255 mg/dL (74-99); Non-African American GFR(CKD) >90 (>60 ml/min/1.73 sqM); Potassium 4.2 mmol/L (3.5-5.1); Sodium 130 mmol/L (137-145); Total Bilirubin 0.7 mg/dL (0.2-1.3); Total Protein 6.5 g/dL (6.3-8.2)
[2021-01-08 11:34] LABS: HCT 42.8 % (39.0-53.0); HGB 14.9 gm/dL (13.0-17.5); MCH 28.2 pg (25.0-35.0); MCHC 34.8 g/dL (31.0-37.0); Mean Platelet Volume 7.6; Platelet Count 301 k/uL (150-450); RBC 5.28 m/uL (4.30-5.90); WBC 12.9 k/uL (3.8-10.6)
[2021-01-08 11:55] LABS: Band Neutrophils % 3 %; Lymphocytes # (M) 0.65 k/uL (1.0-4.8); Metamyelocytes # (M) 0.26 k/uL (0); Metamyelocytes % 2 %; Monocytes # (M) 0.52 k/uL (0-1.0); Myelocytes # (M) 0.13 k/uL (0); Myelocytes % 1 %; Neutrophils % (M) 87 %; Nucleated Red Blood Cells 0 /100 WBC (0-0); Total Cells Counted 200
[2021-01-08 11:56] LABS: Anisocytosis (M) Present; Poikilocytosis (M) Present; Toxic Granulation Present
[2021-01-08 11:58] LABS: LDH 2390 U/L (313-618)
--- NOTE | 2021-01-08 12:12 | P.PN ---
Subjective Progress Note Date: 01/08/21 This is a 40-year-old white male, who presents to the emergency department on January 01, complaining of shortness of breath, fever, muscle aches, harsh cough, and generalized weakness. Apparently his was admitted to the hospital 2 days ago, with coronavirus. The patient had his first vaccination against coronavirus, almost 2 weeks ago. His symptoms began about the same time that he had the vaccine, maybe a day or 2 after. He denies any chest pain or chest discomfort. He does admit to fever and chills. He does have muscle aches and joint aches. He also has a very harsh mostly dry cough, and shortness of breath on exertion. The patient did not have a primary medical doctor, and he denies any other medical problems. He's been taking Tylenol and Motrin at home. White count 11.9, hemoglobin 14.8, hematocrit 44.9, and platelet count 270,000. D-dimer is 0.71. Sodium 135, potassium 4.7, chlorides 100, CO2 21, anion gap 14, BUN 18, creatinine 0.9. The patient's ferritin level was 1280. AST is 70, ALT is 47, pro-calcitonin level is 0.17. C-reactive protein is 20.7. Coronavirus testing on January 01 was positive. Chest x-ray showed diffuse bilateral infiltrates. CT angiogram was negative for pulmonary embolism but did show typical groundglass opacities consistent with coronavirus pneumonia. On today's evaluation of 01/03/2021, seeing the patient for a follow-up. He is aphasic overnight. The pneumonia was seen index consultation yesterday. The patient received his first dose of vaccination for Covid 19 approximately 2 weeks ago. The patient's CT angiogram showed no evidence of any pulmonary embolism. Nevertheless there was bilateral pulmonary infiltrates consistent with Coumadin. Pneumonia. On today's evaluation, he is on oxygen 6 L per minute with a pulse ox of 92%. He is afebrile hemodynamically stable. His pro- calcitonin level was 0.17. His blood work essentially within normal limits. LDH dropped to 805 and a CRP level dropped down to 5.6. The patient was given Decadron 6 mg IV every 24 hours and the patient was also given Lovenox 40 mg sub cu for DVT prophylaxis. The patient is getting normal saline at the rate of 75 mL an hour. On 01/04/2021 the patient's oxygenation got worse. After being on 6 L of oxygen by nasal cannula, this morning he was found to be hypoxic and he was brought up to 15 L high flow oxygen. His pulse ox is being monitored very closely. Noted the patient is currently being treated with a combination of Decadron 6 mg IV 24 hours and Lovenox 40 mg subcu for DVT prophylaxis. He remains in normal saline at the rate of 75 mL an hour. He is awake and alert and he is able to sit up on a recliner chair. Note that the patient had his symptoms she days after he had his vaccination administered to him for Covid 19. No nausea. No vomiting. No diarrhea. No abdominal pain. No altered mentation. Blood work from today is essentially pending. Nevertheless, his d-dimer is up to 10.7, his LDH level is down to 901 with a CRP of 3.5. Chest x-ray was done today and it showed bilateral pulmonary infiltrates consistent with malignancy related pneumonia with peripheral distribution especially on the left. In comparison, there is multifocal pneumonia with no improvement compared to earlier chest x-rays. On today's evaluation of 01/05/2021 patient is doing well and the patient has no specific complaints. The patient is currently on 10 L of Oxymizer cannula. Note that yesterday's condition decompensated. He was placed on 15 L and after some improvement, is down to 10 L nasal cannula. Doing well. He is on Decadron 6 g IV daily and Lovenox 40 mg subcu on a daily basis. No nausea. No vomiting. No diarrhea. No abdominal pain. No chest pain. No altered mentation. He is able to sit up on a chair. His white count was attempted without a hemoglobin of 14.5. The patient's serum bicarbonate 16 and his sodium level is at 134. D- dimer from 12/04/2020 was 10.7. The patient remains on normal saline at the rate of 75 mL an hour 01/06/2021, seeing the patient for a follow-up. The patient is trying to wean his FiO2 any further. He is currently on 14 L per minute nasal cannula. His pulse ox is around 89%. Clinically, he is doing well. No interval worsening shortness of breath. I would say he is essentially the same as yesterday. No fever or chills. Tolerating his diet. No chest pain. His cough is dry.In terms of his blood work, the white cell count of 14.5 with a hemoglobin of 14.7, his sodium levels at 135 and his creatinine is stable at 0.7. Electrodes are all within normal limits. Pro-calcitonin level was 0.13. The patient remains on a combination of Decadron and he is also on Lovenox 40 mg subcu for DVT prophylaxis. IV fluids are still running at 70. This can be tapered off. 01/07/2021 the patient is being seen for a follow-up. His condition remains stable. His oxygenation is ranging between 13 and 15 L per minute nasal cannula. His pulse ox drops with mobility and activity and subsequently recovers. He has no other complaints. He is on Decadron 6 moving arms IV on a daily basis and the patient is also on Lovenox for DVT prophylaxis. The patient is supposed to be also on Baricitinib per protocol. The patient was taken off his IV fluids yesterday. He was given a dose of Lasix and he diuresed significantly since. On his blood work today, the patient has a white cell count of 15.4 with a hemoglobin of 14. His sodium level is at 133. Renal function shows a BUN of 17 with a creatinine of 0.8. Inflammatory markers have not been checked for few days. He is afebrile. The pro calcitonin level was 0.13. Otherwise, no other significant events. 01 08 2021, the patient is on 12 L of oxygen by nasal cannula. Doing well. He is using his Baricitinib is only on Decadron. No new complaints. He received another dose of Lasix yesterday for diffuse axonal amount of urine output. Blood work from today still pending. No chest x-ray from today. As always is fixation, the blood work showed up and the patient is otherwise identified 12.7 with removal of 14.9, his platelet counts are stable, sodium is at 1:30, renal function is stable and normal, LDH level is still elevated at 2390 and a CRP is pending. Blood sugars at 252. Renal function stable. Electrodes are stable. Objective - Vital Signs Vital signs: Vital Signs Temp 98.5 F 01/08/21 09:22 Pulse 106 H 01/08/21 09:22 Resp 18 01/08/21 09:22 BP 137/73 01/08/21 09:22 Pulse Ox 89 L 01/08/21 09:22 Intake & Output 01/07/21 01/08/21 01/08/21 18:59 06:59 18:59 Intake Total 480 Balance 480 Intake: Oral 480 Other: Voiding Method Toilet Toilet Urinal Urinal # Voids 4 2 - Exam No acute distress, oriented 3. No audible wheezing, use of accessory muscles, or conversational dyspnea. Saturations are 90-92% on 10-14 L. this morning he is on 12 L HEENT examination is grossly unremarkable. Neck supple. Full range of motion. No adenopathy thyromegaly or neck vein distention. Cardiovascular examination reveals regular rhythm rate. S1-S2 normal. No S3 or S4. No discernible murmur noted. Heart sounds are distant. Heart rate 98 bpm. Lungs reveal coarse bilateral rhonchi. No wheezes or crackles. Breath sounds equal bilaterally. Abdomen soft bowel sounds are heard. No masses or tenderness. Extremities are intact. No cyanosis clubbing or edema. Skin is without rash or lesion. Neurologic examination is brief but nonfocal. - Labs CBC & Chem 7: 01/08/21 10:22 01/08/21 10:22 Labs: Abnormal Lab Results - Last 24 Hours (Table) 01/08/21 01/08/21 Range/Units 10:22 10:22 WBC 12.9 H (3.8-10.6) k/uL Neutrophils # (Manual) 11.60 H (1.3-7.7) k/uL Lymphocytes # (Manual) 0.65 L (1.0-4.8) k/uL Metamyelocytes # (Man) 0.26 H (0) k/uL Myelocytes # (Manual) 0.13 H (0) k/uL Sodium 130 L (137-145) mmol/L Glucose 255 H (74-99) mg/dL AST 80 H (17-59) U/L ALT 86 H (4-49) U/L Lactate Dehydrogenase 2390 H (313-618) U/L Albumin 3.1 L (3.5-5.0) g/dL Microbiology - Last 24 Hours (Table) 01/04/21 19:01 Blood Culture - Preliminary Blood No Growth after 72 hours 01/01/21 16:47 Blood Culture - Final Blood No Growth after 144 hours 01/01/21 16:47 Blood Culture - Final Blood No Growth after 144 hours Assessment and Plan Plan: 1 Acute hypoxemic respiratory failure secondary to coronavirus associated pneumonia. She has still on oxygen and currently is up to 15 L by nasal cannula. markers of been improving. Chest x-ray are essentially stable. He is stable and there is no interval worsening compared to yesterday. Oxygen flows ranging between 10 and 15 L. I thought clinically the patient was getting better. Nevertheless, bit concerned about his elevated LDH level. We'll continue to follow and monitor his progress. He was diuresed adequately over the past 24 hours. He is declining his Baricitinib. 2 acute Covid 19 infection/pneumonia in an individual has received only 1 dose of vaccination 3 Elevated inflammatory marker secondary to coronavirus infection. 4 No pulmonary embolism seen on CT angiogram. 5 No history of other chronic medical problems. Plan: Monitor fever pattern Continue oxygen at 12 L and wean it down a possible Recheck LDH level by tomorrow Continue Decadron and the patient declined his Baricitinib We'll continue to follow
[2021-01-08] MEDS: SODIUM CHLORIDE 0.9% 1,000 ML IV SCH (13:41)
[2021-01-09] MEDS: ACETAMINOPHEN TAB 325 MG TAB PO PRN (04:12)
--- NOTE | 2021-01-09 08:14 | XR ---
EXAMINATION TYPE: XR chest 1V portable DATE OF EXAM: 01/09/2021 COMPARISON: 01/05/2011 INDICATION: Atypical pneumonia TECHNIQUE: Single frontal view of the chest is obtained. FINDINGS: The heart size is normal. The pulmonary vasculature is minimal prominent. Patchy bilateral lung infiltrates are present greatest at the left mid and lower lung field. Findings are nonspecific but can be compatible with atypical pneumonia. This appears similar to comparison. C ontinued follow-up is recommended IMPRESSION: 1. Patchy stable bilateral lung infiltrates are nonspecific but can be compatible with atypical pneum onia.
[2021-01-09] MEDS: ASCORBIC ACID 500 MG TAB PO SCH (08:41)
[2021-01-09] MEDS: CHOLECALCIFEROL 25 MCG (1000 IU) TABLET PO SCH (08:41)
[2021-01-09] MEDS: DEXAMETHASONE SOD PHOSPHATE 10 MG/ML 1 ML VIAL IVP SCH (08:41)
[2021-01-09] MEDS: FAMOTIDINE 20 MG TAB PO SCH ×2 (08:41→21:40)
[2021-01-09] MEDS: ZINC SULFATE 220 MG CAP PO SCH (08:41)
[2021-01-09] MEDS: ENOXAPARIN 40 MG/0.4 ML SYRINGE SQ SCH (08:42)
[2021-01-09] MEDS: ALBUTEROL HFA INHALER INHALATION SCH ×3 (09:30→19:48)
[2021-01-09 10:03] LABS: C Reactive Protein 5.4 mg/dL (<1.0)
--- NOTE | 2021-01-09 11:30 | P.PN ---
Subjective Progress Note Date: 01/09/21 This is a 40-year-old white male, who presents to the emergency department on January 01, complaining of shortness of breath, fever, muscle aches, harsh cough, and generalized weakness. Apparently his was admitted to the hospital 2 days ago, with coronavirus. The patient had his first vaccination against coronavirus, almost 2 weeks ago. His symptoms began about the same time that he had the vaccine, maybe a day or 2 after. He denies any chest pain or chest discomfort. He does admit to fever and chills. He does have muscle aches and joint aches. He also has a very harsh mostly dry cough, and shortness of breath on exertion. The patient did not have a primary medical doctor, and he denies any other medical problems. He's been taking Tylenol and Motrin at home. White count 11.9, hemoglobin 14.8, hematocrit 44.9, and platelet count 270,000. D-dimer is 0.71. Sodium 135, potassium 4.7, chlorides 100, CO2 21, anion gap 14, BUN 18, creatinine 0.9. The patient's ferritin level was 1280. AST is 70, ALT is 47, pro-calcitonin level is 0.17. C-reactive protein is 20.7. Coronavirus testing on January 01 was positive. Chest x-ray showed diffuse bilateral infiltrates. CT angiogram was negative for pulmonary embolism but did show typical groundglass opacities consistent with coronavirus pneumonia. On today's evaluation of 01/03/2021, seeing the patient for a follow-up. He is aphasic overnight. The pneumonia was seen index consultation yesterday. The patient received his first dose of vaccination for Covid 19 approximately 2 weeks ago. The patient's CT angiogram showed no evidence of any pulmonary embolism. Nevertheless there was bilateral pulmonary infiltrates consistent with Coumadin. Pneumonia. On today's evaluation, he is on oxygen 6 L per minute with a pulse ox of 92%. He is afebrile hemodynamically stable. His pro- calcitonin level was 0.17. His blood work essentially within normal limits. LDH dropped to 805 and a CRP level dropped down to 5.6. The patient was given Decadron 6 mg IV every 24 hours and the patient was also given Lovenox 40 mg sub cu for DVT prophylaxis. The patient is getting normal saline at the rate of 75 mL an hour. On 01/04/2021 the patient's oxygenation got worse. After being on 6 L of oxygen by nasal cannula, this morning he was found to be hypoxic and he was brought up to 15 L high flow oxygen. His pulse ox is being monitored very closely. Noted the patient is currently being treated with a combination of Decadron 6 mg IV 24 hours and Lovenox 40 mg subcu for DVT prophylaxis. He remains in normal saline at the rate of 75 mL an hour. He is awake and alert and he is able to sit up on a recliner chair. Note that the patient had his symptoms she days after he had his vaccination administered to him for Covid 19. No nausea. No vomiting. No diarrhea. No abdominal pain. No altered mentation. Blood work from today is essentially pending. Nevertheless, his d-dimer is up to 10.7, his LDH level is down to 901 with a CRP of 3.5. Chest x-ray was done today and it showed bilateral pulmonary infiltrates consistent with malignancy related pneumonia with peripheral distribution especially on the left. In comparison, there is multifocal pneumonia with no improvement compared to earlier chest x-rays. On today's evaluation of 01/05/2021 patient is doing well and the patient has no specific complaints. The patient is currently on 10 L of Oxymizer cannula. Note that yesterday's condition decompensated. He was placed on 15 L and after some improvement, is down to 10 L nasal cannula. Doing well. He is on Decadron 6 g IV daily and Lovenox 40 mg subcu on a daily basis. No nausea. No vomiting. No diarrhea. No abdominal pain. No chest pain. No altered mentation. He is able to sit up on a chair. His white count was attempted without a hemoglobin of 14.5. The patient's serum bicarbonate 16 and his sodium level is at 134. D- dimer from 12/04/2020 was 10.7. The patient remains on normal saline at the rate of 75 mL an hour 01/06/2021, seeing the patient for a follow-up. The patient is trying to wean his FiO2 any further. He is currently on 14 L per minute nasal cannula. His pulse ox is around 89%. Clinically, he is doing well. No interval worsening shortness of breath. I would say he is essentially the same as yesterday. No fever or chills. Tolerating his diet. No chest pain. His cough is dry.In terms of his blood work, the white cell count of 14.5 with a hemoglobin of 14.7, his sodium levels at 135 and his creatinine is stable at 0.7. Electrodes are all within normal limits. Pro-calcitonin level was 0.13. The patient remains on a combination of Decadron and he is also on Lovenox 40 mg subcu for DVT prophylaxis. IV fluids are still running at 70. This can be tapered off. 01/07/2021 the patient is being seen for a follow-up. His condition remains stable. His oxygenation is ranging between 13 and 15 L per minute nasal cannula. His pulse ox drops with mobility and activity and subsequently recovers. He has no other complaints. He is on Decadron 6 moving arms IV on a daily basis and the patient is also on Lovenox for DVT prophylaxis. The patient is supposed to be also on Baricitinib per protocol. The patient was taken off his IV fluids yesterday. He was given a dose of Lasix and he diuresed significantly since. On his blood work today, the patient has a white cell count of 15.4 with a hemoglobin of 14. His sodium level is at 133. Renal function shows a BUN of 17 with a creatinine of 0.8. Inflammatory markers have not been checked for few days. He is afebrile. The pro calcitonin level was 0.13. Otherwise, no other significant events. 01 08 2021, the patient is on 12 L of oxygen by nasal cannula. Doing well. He is using his Baricitinib is only on Decadron. No new complaints. He received another dose of Lasix yesterday for diffuse axonal amount of urine output. Blood work from today still pending. No chest x-ray from today. As always is fixation, the blood work showed up and the patient is otherwise identified 12.7 with removal of 14.9, his platelet counts are stable, sodium is at 1:30, renal function is stable and normal, LDH level is still elevated at 2390 and a CRP is pending. Blood sugars at 252. Renal function stable. Electrodes are stable. 01/09/2021, this young 40-year-old male patient is still struggling with his COVID 19. Today's on 15 L. His d-dimer is elevated at 34 and his LDH level was as high as 2390 on 01/08/2021 and this dropped down to 2155 and his CRP level is down to 5.4. Rest of the blood work is still pending. Meanwhile, the patient remains on a combination of Decadron 6 mg IV daily and Lovenox 40 mg subcu for DVT prophylaxis. Based on the elevated d-dimer's, I'm going to check the Doppler of the lower extremity to make sure there is no evidence of any DVTs. Note that his d-dimer earlier was at 10.7 and there was a spike in a d-dimer level. Otherwise, is doing well. He is afebrile. He feels stable. His oxygenation is not improving. He had a follow-up chest x-ray done today and this was compared to the chest x-ray was done earlier and upon our comparison, harmony G[facility], we noticed interval improvement in aeration on the right. Left lung is somewhat improved although there is some dense consolidation along the left lung margin. As somebody, there may be some limited improvement upon comparing these chest x-rays. Objective - Vital Signs Vital signs: Vital Signs Temp 98.6 F 01/09/21 09:34 Pulse 111 H 01/09/21 09:34 Resp 18 01/09/21 09:34 BP 121/72 01/09/21 09:34 Pulse Ox 90 L 01/09/21 09:34 Intake & Output 01/08/21 01/09/21 01/09/21 18:59 06:59 18:59 Other: # Voids 3 2 - Exam No acute distress, oriented 3. No audible wheezing, use of accessory muscles, or conversational dyspnea. Saturations are 90-92% on 10-14 L. this morning he is on 12 L HEENT examination is grossly unremarkable. Neck supple. Full range of motion. No adenopathy thyromegaly or neck vein distention. Cardiovascular examination reveals regular rhythm rate. S1-S2 normal. No S3 or S4. No discernible murmur noted. Heart sounds are distant. Heart rate 98 bpm. Lungs reveal coarse bilateral rhonchi. No wheezes or crackles. Breath sounds equal bilaterally. Abdomen soft bowel sounds are heard. No masses or tenderness. Extremities are intact. No cyanosis clubbing or edema. Skin is without rash or lesion. Neurologic examination is brief but nonfocal. - Labs CBC & Chem 7: 01/08/21 10:22 01/08/21 10:22 Labs: Abnormal Lab Results - Last 24 Hours (Table) 01/08/21 01/08/21 01/09/21 Range/Units 10:22 10:22 09:11 WBC 12.9 H (3.8-10.6) k/uL Neutrophils # (Manual) 11.60 H (1.3-7.7) k/uL Lymphocytes # (Manual) 0.65 L (1.0-4.8) k/uL Metamyelocytes # (Man) 0.26 H (0) k/uL Myelocytes # (Manual) 0.13 H (0) k/uL D-Dimer >34.10 H (<0.60) mg/L FEU Sodium 130 L (137-145) mmol/L Glucose 255 H (74-99) mg/dL AST 80 H (17-59) U/L ALT 86 H (4-49) U/L Lactate Dehydrogenase 2390 H (313-618) U/L C-Reactive Protein 5.0 H (<1.0) mg/dL Albumin 3.1 L (3.5-5.0) g/dL 01/09/21 Range/Units 09:11 WBC (3.8-10.6) k/uL Neutrophils # (Manual) (1.3-7.7) k/uL Lymphocytes # (Manual) (1.0-4.8) k/uL Metamyelocytes # (Man) (0) k/uL Myelocytes # (Manual) (0) k/uL D-Dimer (<0.60) mg/L FEU Sodium (137-145) mmol/L Glucose (74-99) mg/dL AST (17-59) U/L ALT (4-49) U/L Lactate Dehydrogenase 2155 H (313-618) U/L C-Reactive Protein 5.4 H (<1.0) mg/dL Albumin (3.5-5.0) g/dL Microbiology - Last 24 Hours (Table) 01/04/21 19:01 Blood Culture - Preliminary Blood No Growth after 96 hours Assessment and Plan Plan: 1 Acute hypoxemic respiratory failure secondary to coronavirus associated pneumonia. She has still on oxygen and currently is up to 15 L by nasal cannula. markers of been improving. Chest x-ray are essentially stable. He is stable and there is no interval worsening compared to yesterday. Oxygen flows ranging between 10 and 15 L. I thought clinically the patient was getting better. Nevertheless, bit concerned about his elevated LDH level. We'll continue to follow and monitor his progress. He was diuresed adequately over the past 24 hours. He is declining his Baricitinib. 2 acute Covid 19 infection/pneumonia in an individual has received only 1 dose of vaccination 3 Elevated inflammatory marker secondary to coronavirus infection. 4 No pulmonary embolism seen on CT angiogram. 5 No history of other chronic medical problems. Plan: LDH level was very high and it's improving D-dimer is very much elevated above 34 and we'll obtain a Doppler of the lower extremity. We'll continue Lovenox and prophylactic dose Monitor fever pattern Continue oxygen at 15 L and wean if possible Recheck LDH level by tomorrow Continue Decadron and the patient declined his Baricitinib We'll continue to follow
--- NOTE | 2021-01-09 12:34 | US ---
EXAMINATION TYPE: US venous doppler duplex LE BI DATE OF EXAM: 01/09/2021 12:09 PM COMPARISON: 01/04/2021 CLINICAL HISTORY: elevated D-Dimer. Covid +. Leg swelling. SIDE PERFORMED: Bilateral TECHNIQUE: The lower extremity deep venous system is examined utilizing real time linear array sonog marianna with graded compression, doppler sonography and color-flow sonography. VESSELS IMAGED: Common Femoral Vein Deep Femoral Vein Greater Saphenous Vein * Femoral Vein Popliteal Vein Small Saphenous Vein * Proximal Calf Veins (* superficial vessels) Right Leg: Negative for DVT Left Leg: POSITIVE for DVT in mid and upper distal popliteal vein. Nonoccluding. IMPRESSION: 1. Findings compatible with deep venous thrombosis within the mid and upper left popliteal vein. This is incompletely obstructing.
[2021-01-09] MEDS ORDERED: HEPARIN SODIUM 1,000 UN/ML (10ML VL) IV ONE (12:52)
[2021-01-09] MEDS ORDERED: HEPARIN SODIUM 1,000 UN/ML (10ML VL) IV PRN (12:52)
[2021-01-09] MEDS ORDERED: HEPARIN SOD,PORK IN 0.45% NACL 25,000 UNIT in 0.45% NACL 1 250ML.BAG IV SCH (13:00)
[2021-01-09 13:27] LABS: INR 1.1 (<1.2); Partial Thromboplastin Time 24.7 sec (22.0-30.0); Prothrombin Time 11.2 sec (9.0-12.0)
[2021-01-09] MEDS ORDERED: APIXABAN 5 MG TAB PO SCH (13:30)
[2021-01-09 13:37] LABS: Basophils # (A) 0.1 k/uL (0-0.2); Basophils % (A) 1 %; Eosinophils # (A) 0.1 k/uL (0-0.7); Eosinophils % (A) 1 %; HCT 43.7 % (39.0-53.0); HGB 14.9 gm/dL (13.0-17.5); Lymphocytes % (A) 7 %; MCV 82.2 fL (80.0-100.0); Mean Platelet Volume 7.6; Monocytes # (A) 0.5 k/uL (0-1.0); Monocytes % (A) 3 %; Neutrophils # (A) 11.8 k/uL (1.3-7.7); Neutrophils % (A) 87 %; Platelet Count 313 k/uL (150-450); RBC 5.32 m/uL (4.30-5.90); WBC 13.6 k/uL (3.8-10.6)
[2021-01-09] MEDS: SODIUM CHLORIDE 0.9% 1,000 ML IV SCH (13:48)
[2021-01-09] MEDS: APIXABAN 5 MG TAB PO SCH ×2 (14:02→21:40)
--- NOTE | 2021-01-09 18:48 | P.PN ---
Subjective Progress Note Date: 01/07/21 Principal diagnosis: Acute hypoxemic respiratory failure COVID-19 viral pneumonia 40-year-old white male, who presents to the emergency department on January 01, complaining of shortness of breath, fever, muscle aches, harsh cough, and generalized weakness. Apparently his was admitted to the hospital 2 days ago, with coronavirus. The patient had his first vaccination against coronavirus, almost 2 weeks ago. His symptoms began about the same time that he had the vaccine, maybe a day or 2 after. He denies any chest pain or chest discomfort. He does admit to fever and chills. He does have muscle aches and joint aches. He also has a very harsh mostly dry cough, and shortness of breath on exertion. The patient did not have a primary medical doctor, and he denies any other medical problems. He's been taking Tylenol and Motrin at home. White count 11.9, hemoglobin 14.8, hematocrit 44.9, and platelet count 270,000. D-dimer is 0.71. Sodium 135, potassium 4.7, chlorides 100, CO2 21, anion gap 14, BUN 18, creatinine 0.9. The patient's ferritin level was 1280. AST is 70, ALT is 47, pro-calcitonin level is 0.17. C-reactive protein is 20.7. Coronavirus testing on January 01 was positive. Chest x-ray showed diffuse bilateral infiltrates. CT angiogram was negative for pulmonary embolism but did show typical groundglass opacities consistent with coronavirus pneumonia. Objective - Vital Signs Vital signs: Vital Signs Temp 99.0 F 01/07/21 06:11 Pulse 96 01/07/21 06:11 Resp 19 01/07/21 08:00 BP 129/84 01/07/21 06:11 Pulse Ox 87 L 01/07/21 06:11 Intake & Output 01/06/21 01/07/21 01/07/21 18:59 06:59 18:59 Weight 113.398 kg Other: Voiding Method Toilet Toilet Urinal Urinal # Voids 2 3 - Exam - Constitutional General appearance: Present: average body habitus, cooperative, no acute distress - EENT Eyes: Present: anicteric sclerae, EOMI, PERRLA, normal appearance ENT: Present: hearing grossly normal, normal oropharynx Ears: bilateral: normal - Neck Neck: Present: normal ROM. Absent: lymphadenopathy, rigidity, thyromegaly Carotids: negative: bruit present Thyroid: bilateral: normal size, negative: enlarged, nodule - Respiratory Respiratory: bilateral: CTA, negative: rales, rhonchi, wheezing - Cardiovascular Rhythm: regular Heart sounds: normal: S1, S2 Abnormal Heart Sounds: Absent: systolic murmur, diastolic murmur - Gastrointestinal General gastrointestinal: Present: normal bowel sounds, soft. Absent: distended, organomegaly, tenderness - Genitourinary Genitourinary Comment(s): deferred - Integumentary Integumentary: Present: normal turgor. Absent: jaundiced, rash, ulcer - Neurologic Neurologic: Present: CNII-XII intact. Absent: focal deficits - Musculoskeletal Musculoskeletal: Present: gait normal, strength equal bilaterally - Psychiatric Psychiatric: Present: A&O x's 3, appropriate affect, intact judgment & insight - Labs CBC & Chem 7: 01/09/21 09:11 01/08/21 10:22 Labs: Abnormal Lab Results - Last 24 Hours (Table) 01/07/21 01/07/21 Range/Units 08:01 08:01 WBC 13.4 H (3.8-10.6) k/uL Neutrophils # 11.6 H (1.3-7.7) k/uL Sodium 133 L (137-145) mmol/L Glucose 110 H (74-99) mg/dL AST 64 H (17-59) U/L ALT 63 H (4-49) U/L Albumin 3.0 L (3.5-5.0) g/dL Microbiology - Last 24 Hours (Table) 01/04/21 19:01 Blood Culture - Preliminary Blood No Growth after 48 hours 01/01/21 16:47 Blood Culture - Preliminary Blood No Growth after 120 hours 01/01/21 16:47 Blood Culture - Preliminary Blood No Growth after 120 hours Assessment and Plan Assessment: 1. Acute hypoxemic respiratory failure secondary to COVID-19 infection - Patient is currently on 15 L O2 per nasal cannula; we will plan to titrate as able 2. COVID-19 viral pneumonia - Patient has received only 1 dose of COVID-19 vaccine; due to interval worsening pulmonary's recommending to continue the Decadron 6 mg IV daily and add Baricitinib regarding his Covid 19 related pneumonia; patient remains on Lovenox 40 mg subcu daily along with COVID-19 vitamin cocktail; soft Prolene and incentive spirometry is encouraged 3. Markedly elevated d-dimer; PE ruled out; CTA chest was done which was negative for PE 4. Leukocytosis; possibly due to reactive; rule out superimposed bacterial infection; we will monitor CBC, CMP and pro-calcitonin 5. Mild hyponatremia; possibly related to lung pathology; we will monitor electrolytes and make supplementations as needed 6. Transaminitis; related to COVID-19 bilateral pneumonia; monitor liver enzymes periodically DVT prophylaxis; SCDs/subcu Lovenox CODE STATUS; full code
--- NOTE | 2021-01-09 18:50 | P.PN ---
Subjective Progress Note Date: 01/08/21 Principal diagnosis: Acute hypoxemic respiratory failure COVID-19 viral pneumonia 40-year-old white male, who presents to the emergency department on January 01, complaining of shortness of breath, fever, muscle aches, harsh cough, and generalized weakness. Apparently his was admitted to the hospital 2 days ago, with coronavirus. The patient had his first vaccination against coronavirus, almost 2 weeks ago. His symptoms began about the same time that he had the vaccine, maybe a day or 2 after. He denies any chest pain or chest discomfort. He does admit to fever and chills. He does have muscle aches and joint aches. He also has a very harsh mostly dry cough, and shortness of breath on exertion. The patient did not have a primary medical doctor, and he denies any other medical problems. He's been taking Tylenol and Motrin at home. White count 11.9, hemoglobin 14.8, hematocrit 44.9, and platelet count 270,000. D-dimer is 0.71. Sodium 135, potassium 4.7, chlorides 100, CO2 21, anion gap 14, BUN 18, creatinine 0.9. The patient's ferritin level was 1280. AST is 70, ALT is 47, pro-calcitonin level is 0.17. C-reactive protein is 20.7. Coronavirus testing on January 01 was positive. Chest x-ray showed diffuse bilateral infiltrates. CT angiogram was negative for pulmonary embolism but did show typical groundglass opacities consistent with coronavirus pneumonia. 01/08/2021 Patient is seen and evaluated in room at bedside; remains on O2 at 12 L per nasal cannula Vital signs are reviewed, temperature 98.6, pulse 111, respiration 18 and blood pressure of 121/72; duration of 90% on 12 L the blood work showed up and the patient is otherwise identified 12.7 with removal of 14.9, his platelet counts are stable, sodium is at 1:30, renal function is stable and normal, LDH level is still elevated at 2390 and a CRP is pending. Blood sugars at 252. Renal function stable. Electrodes are stable. Objective - Vital Signs Vital signs: Vital Signs Temp 98.5 F 01/08/21 09:22 Pulse 106 H 01/08/21 09:22 Resp 18 01/08/21 09:22 BP 137/73 01/08/21 09:22 Pulse Ox 89 L 01/08/21 09:22 Intake & Output 01/07/21 01/08/21 01/08/21 18:59 06:59 18:59 Intake Total 480 Balance 480 Intake: Oral 480 Other: Voiding Method Toilet Toilet Urinal Urinal # Voids 4 2 - Exam - Constitutional General appearance: Present: average body habitus, cooperative, no acute distress - EENT Eyes: Present: anicteric sclerae, EOMI, PERRLA, normal appearance ENT: Present: hearing grossly normal, normal oropharynx Ears: bilateral: normal - Neck Neck: Present: normal ROM. Absent: lymphadenopathy, rigidity, thyromegaly Carotids: negative: bruit present Thyroid: bilateral: normal size, negative: enlarged, nodule - Respiratory Respiratory: bilateral: CTA, negative: rales, rhonchi, wheezing - Cardiovascular Rhythm: regular Heart sounds: normal: S1, S2 Abnormal Heart Sounds: Absent: systolic murmur, diastolic murmur - Gastrointestinal General gastrointestinal: Present: normal bowel sounds, soft. Absent: distended, organomegaly, tenderness - Genitourinary Genitourinary Comment(s): deferred - Integumentary Integumentary: Present: normal turgor. Absent: jaundiced, rash, ulcer - Neurologic Neurologic: Present: CNII-XII intact. Absent: focal deficits - Musculoskeletal Musculoskeletal: Present: gait normal, strength equal bilaterally - Psychiatric Psychiatric: Present: A&O x's 3, appropriate affect, intact judgment & insight - Labs CBC & Chem 7: 01/09/21 09:11 01/08/21 10:22 Labs: Abnormal Lab Results - Last 24 Hours (Table) 01/08/21 01/08/21 Range/Units 10:22 10:22 WBC 12.9 H (3.8-10.6) k/uL Neutrophils # (Manual) 11.60 H (1.3-7.7) k/uL Lymphocytes # (Manual) 0.65 L (1.0-4.8) k/uL Metamyelocytes # (Man) 0.26 H (0) k/uL Myelocytes # (Manual) 0.13 H (0) k/uL Sodium 130 L (137-145) mmol/L Glucose 255 H (74-99) mg/dL AST 80 H (17-59) U/L ALT 86 H (4-49) U/L Lactate Dehydrogenase 2390 H (313-618) U/L C-Reactive Protein 5.0 H (<1.0) mg/dL Albumin 3.1 L (3.5-5.0) g/dL Microbiology - Last 24 Hours (Table) 01/04/21 19:01 Blood Culture - Preliminary Blood No Growth after 72 hours 01/01/21 16:47 Blood Culture - Final Blood No Growth after 144 hours 01/01/21 16:47 Blood Culture - Final Blood No Growth after 144 hours Assessment and Plan Assessment: 1. Acute hypoxemic respiratory failure secondary to COVID-19 infection - Patient is currently on 15 L O2 per nasal cannula; we will plan to titrate as able 2. COVID-19 viral pneumonia - Patient has received only 1 dose of COVID-19 vaccine; due to interval worsening pulmonary's recommending to continue the Decadron 6 mg IV daily and add Baricitinib regarding his Covid 19 related pneumonia; patient remains on Lovenox 40 mg subcu daily along with COVID-19 vitamin cocktail; soft Prolene and incentive spirometry is encouraged 3. Markedly elevated d-dimer; PE ruled out; CTA chest was done which was negative for PE 4. Leukocytosis; possibly due to reactive; rule out superimposed bacterial infection; we will monitor CBC, CMP and pro-calcitonin 5. Mild hyponatremia; possibly related to lung pathology; we will monitor electrolytes and make supplementations as needed 6. Transaminitis; related to COVID-19 bilateral pneumonia; monitor liver enzymes periodically DVT prophylaxis; SCDs/subcu Lovenox CODE STATUS; full code
--- NOTE | 2021-01-09 18:57 | P.PN ---
Subjective Progress Note Date: 01/09/21 Principal diagnosis: Acute hypoxemic respiratory failure COVID-19 viral pneumonia 40-year-old white male, who presents to the emergency department on January 01, complaining of shortness of breath, fever, muscle aches, harsh cough, and generalized weakness. Apparently his was admitted to the hospital 2 days ago, with coronavirus. The patient had his first vaccination against coronavirus, almost 2 weeks ago. His symptoms began about the same time that he had the vaccine, maybe a day or 2 after. He denies any chest pain or chest discomfort. He does admit to fever and chills. He does have muscle aches and joint aches. He also has a very harsh mostly dry cough, and shortness of breath on exertion. The patient did not have a primary medical doctor, and he denies any other medical problems. He's been taking Tylenol and Motrin at home. White count 11.9, hemoglobin 14.8, hematocrit 44.9, and platelet count 270,000. D-dimer is 0.71. Sodium 135, potassium 4.7, chlorides 100, CO2 21, anion gap 14, BUN 18, creatinine 0.9. The patient's ferritin level was 1280. AST is 70, ALT is 47, pro-calcitonin level is 0.17. C-reactive protein is 20.7. Coronavirus testing on January 01 was positive. Chest x-ray showed diffuse bilateral infiltrates. CT angiogram was negative for pulmonary embolism but did show typical groundglass opacities consistent with coronavirus pneumonia. 01/08/2021 Patient is seen and evaluated in room at bedside; remains on O2 at 12 L per nasal cannula Vital signs are reviewed, temperature 98.6, pulse 111, respiration 18 and blood pressure of 121/72; duration of 90% on 12 L the blood work showed up and the patient is otherwise identified 12.7 with removal of 14.9, his platelet counts are stable, sodium is at 1:30, renal function is stable and normal, LDH level is still elevated at 2390 and a CRP is pending. Blood sugars at 252. Renal function stable. Electrodes are stable. 01/09/2021 Patient is seen and evaluated at bedside; has numerous questions about positive DVT and its treatment and prognosis; all of patient's questions were answered Vital signs are reviewed temperature 98.6, pulse 111, respiration 18 and blood pressure 121/72 with O2 saturation of 90% His d-dimer is elevated at 34 and his LDH level was as high as 2390 on 01/08/2021 and this dropped down to 2155 and his CRP level is down to 5.4. Patient remains on a combination of Decadron 6 mg IV daily and Lovenox 40 mg subcu for DVT prophylaxis Venous Doppler is positive for DVT in lower extremities; patient has been placed on systemic anticoagulation with Eliquis 10 mg by mouth twice a day Objective - Vital Signs Vital signs: Vital Signs Temp 98.6 F 01/09/21 09:34 Pulse 111 H 01/09/21 09:34 Resp 18 01/09/21 09:34 BP 121/72 01/09/21 09:34 Pulse Ox 90 L 01/09/21 09:34 Intake & Output 01/08/21 01/09/21 01/09/21 18:59 06:59 18:59 Other: # Voids 3 2 - Exam - Constitutional General appearance: Present: average body habitus, cooperative, no acute distress - EENT Eyes: Present: anicteric sclerae, EOMI, PERRLA, normal appearance ENT: Present: hearing grossly normal, normal oropharynx Ears: bilateral: normal - Neck Neck: Present: normal ROM. Absent: lymphadenopathy, rigidity, thyromegaly Carotids: negative: bruit present Thyroid: bilateral: normal size, negative: enlarged, nodule - Respiratory Respiratory: bilateral: CTA, negative: rales, rhonchi, wheezing - Cardiovascular Rhythm: regular Heart sounds: normal: S1, S2 Abnormal Heart Sounds: Absent: systolic murmur, diastolic murmur - Gastrointestinal General gastrointestinal: Present: normal bowel sounds, soft. Absent: distended, organomegaly, tenderness - Genitourinary Genitourinary Comment(s): deferred - Integumentary Integumentary: Present: normal turgor. Absent: jaundiced, rash, ulcer - Neurologic Neurologic: Present: CNII-XII intact. Absent: focal deficits - Musculoskeletal Musculoskeletal: Present: gait normal, strength equal bilaterally - Psychiatric Psychiatric: Present: A&O x's 3, appropriate affect, intact judgment & insight - Labs CBC & Chem 7: 01/09/21 09:11 01/08/21 10:22 Labs: Abnormal Lab Results - Last 24 Hours (Table) 01/08/21 01/08/21 01/09/21 Range/Units 10:22 10:22 09:11 Neutrophils # (Manual) 11.60 H (1.3-7.7) k/uL Lymphocytes # (Manual) 0.65 L (1.0-4.8) k/uL Metamyelocytes # (Man) 0.26 H (0) k/uL Myelocytes # (Manual) 0.13 H (0) k/uL D-Dimer >34.10 H (<0.60) mg/L FEU Lactate Dehydrogenase 2390 H (313-618) U/L C-Reactive Protein 5.0 H (<1.0) mg/dL 01/09/21 Range/Units 09:11 Neutrophils # (Manual) (1.3-7.7) k/uL Lymphocytes # (Manual) (1.0-4.8) k/uL Metamyelocytes # (Man) (0) k/uL Myelocytes # (Manual) (0) k/uL D-Dimer (<0.60) mg/L FEU Lactate Dehydrogenase 2155 H (313-618) U/L C-Reactive Protein 5.4 H (<1.0) mg/dL Microbiology - Last 24 Hours (Table) 01/04/21 19:01 Blood Culture - Preliminary Blood No Growth after 96 hours Assessment and Plan Assessment: 1. Acute hypoxemic respiratory failure secondary to COVID-19 infection - Patient is currently on 15 L O2 per nasal cannula; we will plan to titrate as able 2. COVID-19 viral pneumonia - Patient has received only 1 dose of COVID-19 vaccine; due to interval worsening pulmonary's recommending to continue the Decadron 6 mg IV daily and add Baricitinib regarding his Covid 19 related pneumonia; patient remains on Lovenox 40 mg subcu daily along with COVID-19 vitamin cocktail; soft Prolene and incentive spirometry is encouraged 3. Markedly elevated d-dimer; PE ruled out; CTA chest was done which was negative for PE 4. Leukocytosis; possibly due to reactive; rule out superimposed bacterial infection; we will monitor CBC, CMP and pro-calcitonin 5. Mild hyponatremia; possibly related to lung pathology; we will monitor electrolytes and make supplementations as needed 6. Transaminitis; related to COVID-19 bilateral pneumonia; monitor liver enzymes periodically DVT prophylaxis; SCDs/subcu Lovenox CODE STATUS; full code
[2021-01-10] MEDS: ACETAMINOPHEN TAB 325 MG TAB PO PRN ×2 (02:01→07:17)
[2021-01-10] MEDS: DEXAMETHASONE SOD PHOSPHATE 10 MG/ML 1 ML VIAL IVP SCH (08:20)
[2021-01-10] MEDS: APIXABAN 5 MG TAB PO SCH ×2 (08:20→22:00)
[2021-01-10] MEDS: FAMOTIDINE 20 MG TAB PO SCH ×2 (08:21→22:00)
[2021-01-10] MEDS: CHOLECALCIFEROL 25 MCG (1000 IU) TABLET PO SCH (08:21)
[2021-01-10] MEDS: ZINC SULFATE 220 MG CAP PO SCH (08:21)
[2021-01-10] MEDS: ASCORBIC ACID 500 MG TAB PO SCH (08:21)
[2021-01-10] MEDS: ALBUTEROL HFA INHALER INHALATION SCH ×3 (09:02→21:48)
[2021-01-10 10:33] LABS: C Reactive Protein 16.8 mg/dL (<1.0)
[2021-01-10 15:27] LABS: Glucose,Whole Blood 227 mg/dL (75-99)
[2021-01-10 15:28] LABS: ALT 77 U/L (4-49); AST 61 U/L (17-59); African American GFR (CKD) >90 (>60 ml/min/1.73 sqM); Albumin 2.8 g/dL (3.5-5.0); Albumin/Globulin Ratio 0.9; Alkaline Phosphatase 68 U/L (38-126); Anion Gap 8 mmol/L; Blood Urea Nitrogen 15 mg/dL (9-20); Calcium 8.3 mg/dL (8.4-10.2); Carbon Dioxide 23 mmol/L (22-30); Chloride 97 mmol/L (98-107); Globulin 3.2 g/dL; Glucose 229 mg/dL (74-99); Non-African American GFR(CKD) >90 (>60 ml/min/1.73 sqM); Potassium 4.3 mmol/L (3.5-5.1); Sodium 128 mmol/L (137-145); Total Bilirubin 0.6 mg/dL (0.2-1.3)
[2021-01-10] MEDS: INSULIN ASPART (NovoLOG) 100 UNIT/ML VIAL SQ SCH ×2 (15:30→22:01)
--- NOTE | 2021-01-10 16:12 | PN ---
PROGRESS NOTE DATE OF SERVICE: 01/10/2021 This 40-year-old gentleman who was admitted with acute COVID-19 infection as well as acute bilateral pneumonia continues to be hypoxic. Patient requires 15 L nasal cannula at this time. The patient is being closely monitored at this time. The D-dimer was elevated. Initially D-dimer was negative on 01/04, but the repeat D-dimer done yesterday showed evidence of left leg DVT. No chest pain. No palpitations. No fever. The sugar is elevated. PHYSICAL EXAMINATION: Alert and oriented x3. Pulse 105, blood pressure is 131/73, respiration 18, temperature 98.3, pulse ox 94% on 15 L. HEENT: Conjunctivae normal. NECK: No jugular venous distention. CARDIOVASCULAR: S1, S2 muffled. RESPIRATION: Breath sounds diminished at the bases. Scattered rhonchi and crackles. ABDOMEN: Soft. NERVOUS SYSTEM: No focal deficit. T-max 100 degrees. REVIEW OF SYSTEMS: CARDIOVASCULAR SYSTEM: No angina. RESPIRATION: As mentioned earlier. GI: As mentioned earlier. : No dysuria. NERVOUS SYSTEM: ntd CURRENT MEDICATIONS: Reviewed. They include Tylenol, Ventolin, Eliquis, vitamin C, dexamethasone, Robitussin, Orazinc. The reports are not available at this time. ASSESSMENT: 1. Acute COVID-19 infection with acute bilateral COVID-19 interstitial pneumonia with acute hypoxic respiratory failure. 2. Deep vein thrombosis of the right leg, popliteal. 3. 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 4. Continued fever. 5. Elevated inflammatory markers of COVID-19. 6. Elevated D-dimer. 7. Transaminitis. 8. History of obstructive sleep apnea. 9. Gastroesophageal reflux disease. 10.Obesity with body mass index of 36.2. 11.Elevated white count. 12.Elevated procalcitonin previously. 13.Elevated D-dimer and no evidence of pulmonary embolism. 14.Elevated AST. 15.Diarrhea, possibly GI manifestation of COVID-19. 16.Hyponatremia. RECOMMENDATIONS AND DISCUSSION: I recommend to continue current medications, continue symptomatic treatment. Continue with Eliquis. The patient was started on Eliquis. Continue with dexamethasone. Recommend Accu-Cheks before meals and at bedtime and continue to monitor. If the sugars are more than 400, also recommend insulin infusion. Overall prognosis guarded. If inflammatory markers are still elevated, further recommendations to follow. MMODL / IJN: [id number] / JENNIFER
[2021-01-10 16:58] LABS: Glucose,Whole Blood 189 mg/dL (75-99)
[2021-01-10] MEDS: SODIUM CHLORIDE 0.9% 1,000 ML IV SCH (17:07)
[2021-01-10 17:27] LABS: Basophils # (A) 0.1 k/uL (0-0.2); Basophils % (A) 0 %; Eosinophils % (A) 0 %; HCT 43.5 % (39.0-53.0); HGB 14.7 gm/dL (13.0-17.5); Lymphocytes # (A) 0.5 k/uL (1.0-4.8); Lymphocytes % (A) 4 %; MCH 28.4 pg (25.0-35.0); MCHC 33.9 g/dL (31.0-37.0); MCV 83.9 fL (80.0-100.0); Mean Platelet Volume 7.3; Monocytes # (A) 0.7 k/uL (0-1.0); Monocytes % (A) 5 %; Neutrophils # (A) 13.5 k/uL (1.3-7.7); Neutrophils % (A) 91 %; Platelet Count 286 k/uL (150-450); RBC 5.18 m/uL (4.30-5.90); RDW 13.5 % (11.5-15.5); WBC 14.9 k/uL (3.8-10.6)
--- NOTE | 2021-01-10 17:58 | P.PN ---
Subjective Progress Note Date: 01/10/21 Principal diagnosis: Hypoxemic, COVID-19 pneumonia On 01/10/2021 patient seen in follow-up on medical surgical floor. He is awake and alert, in no acute distress, he is currently on 15 L of oxygen, pulse ox is 95%, overall he is feeling better, breathing easier, he has completed a course of Baricitinib, she remains on Decadron, he is on Eliquis 10 mg twice a day for evidence of DVT in the mid and upper distal popliteal vein. Chest x-ray shows patchy stable bilateral lung infiltrates that are nonspecific but compatible with atypical pneumonia. Restless BEEN reviewed, whether, is relatively stable at 14.9, hemoglobin is 14.7, patient's d-dimer is 12.92, improved from 34.1, sodium is 128, potassium is 4.3, chloride is 97, B1 is 50 creatinine 0.84, LDH is improving and is down to 1937, his CRP is up to 16.8. Objective - Vital Signs Vital signs: Vital Signs Temp 98.1 F 01/10/21 14:24 Pulse 104 H 01/10/21 14:24 Resp 18 01/10/21 14:24 BP 130/83 01/10/21 14:24 Pulse Ox 95 01/10/21 14:24 Intake & Output 01/09/21 01/10/21 01/10/21 18:59 06:59 18:59 Other: Voiding Method Toilet Urinal # Voids 4 2 - Exam GENERAL EXAM: Alert, very pleasant, 40-year-old white male, on 15 L of oxygen with a pulse ox of 95% comfortable in no apparent distress. HEAD: Normocephalic/atraumatic. EYES: Normal reaction of pupils, equal size. Conjunctiva pink, sclera white. NOSE: Clear with pink turbinates. THROAT: No erythema or exudates. NECK: No masses, no JVD, no thyroid enlargement, no adenopathy. CHEST: No chest wall deformity. Symmetrical expansion. LUNGS: Equal air entry with no crackles, wheeze, rhonchi or dullness. CVS: Regular rate and rhythm, normal S1 and S2, no gallops, no murmurs, no rubs ABDOMEN: Soft, nontender. No hepatosplenomegaly, normal bowel sounds, no guarding or rigidity. EXTREMITIES: No clubbing, no edema, no cyanosis, 2+ pulses and upper and lower extremities. MUSCULOSKELETAL: Muscle strength and tone normal. SPINE: No scoliosis or deformity SKIN: No rashes CENTRAL NERVOUS SYSTEM: Alert and oriented -3. No focal deficits, tone is normal in all 4 extremities. PSYCHIATRIC: Alert and oriented -3. Appropriate affect. Intact judgment and insight. - Labs CBC & Chem 7: 01/10/21 16:42 01/10/21 07:55 Labs: Abnormal Lab Results - Last 24 Hours (Table) 01/10/21 01/10/21 01/10/21 Range/Units 07:55 07:55 07:55 WBC (3.8-10.6) k/uL Neutrophils # (1.3-7.7) k/uL Lymphocytes # (1.0-4.8) k/uL D-Dimer 12.92 H (<0.60) mg/L FEU Sodium 128 L (137-145) mmol/L Chloride 97 L (98-107) mmol/L Glucose 229 H (74-99) mg/dL POC Glucose (mg/dL) (75-99) mg/dL Calcium 8.3 L (8.4-10.2) mg/dL AST 61 H (17-59) U/L ALT 77 H (4-49) U/L Lactate Dehydrogenase 1937 H (313-618) U/L C-Reactive Protein 16.8 H (<1.0) mg/dL Total Protein 6.0 L (6.3-8.2) g/dL Albumin 2.8 L (3.5-5.0) g/dL 01/10/21 01/10/21 01/10/21 Range/Units 15:24 16:42 16:55 WBC 14.9 H (3.8-10.6) k/uL Neutrophils # 13.5 H (1.3-7.7) k/uL Lymphocytes # 0.5 L (1.0-4.8) k/uL D-Dimer (<0.60) mg/L FEU Sodium (137-145) mmol/L Chloride (98-107) mmol/L Glucose (74-99) mg/dL POC Glucose (mg/dL) 227 H 189 H (75-99) mg/dL Calcium (8.4-10.2) mg/dL AST (17-59) U/L ALT (4-49) U/L Lactate Dehydrogenase (313-618) U/L C-Reactive Protein (<1.0) mg/dL Total Protein (6.3-8.2) g/dL Albumin (3.5-5.0) g/dL Microbiology - Last 24 Hours (Table) 01/04/21 19:01 Blood Culture - Preliminary Blood No Growth after 120 hours Assessment and Plan Plan: Assessment: #1. Acute hypoxic respiratory failure related to COVID-19 pneumonia, patient remains on 15 L of oxygen. He has completed a course of Baricitinib. #2. Acute COVID-19 infection/pneumonia, and patient has only received 1 dose of COVID-19 vaccination #3. Elevated inflammatory markers, improved on today's labs #4. Elevated d-dimer, related to COVID-19. No CT evidence of pulmonary embolism #5. Acute DVT in the mid and upper distal popliteal obtain, patient has been started on Eliquis Plan: Continue oral anticoagulation Continue on Decadron Continue vitamin D, C, and zinc Continue monitoring for worsening dyspnea or hypoxia Incentive spirometer, encourage patient to use of Continue weaning FiO2 to keep O2 sats transient at or above 90% I performed a history & physical examination of the patient and discussed their management with my nurse practitioner, Shelli Dominguez. I reviewed the nurse practitioner's note and agree with the documented findings and plan of care. Lung sounds are positive for diminished breath sounds throughout the lung gamez. The findings and the impression was discussed with the patient. I attest to the documentation by the nurse practitioner. Time with Patient: Less than 30
[2021-01-10 20:00] LABS: Glucose,Whole Blood 140 mg/dL (75-99)
[2021-01-11 06:54] LABS: Glucose,Whole Blood 108 mg/dL (75-99)
[2021-01-11] MEDS: INSULIN ASPART (NovoLOG) 100 UNIT/ML VIAL SQ SCH ×4 (08:24→21:54)
[2021-01-11] MEDS: CHOLECALCIFEROL 25 MCG (1000 IU) TABLET PO SCH (08:26)
[2021-01-11] MEDS: DEXAMETHASONE SOD PHOSPHATE 10 MG/ML 1 ML VIAL IVP SCH (08:26)
[2021-01-11] MEDS: FAMOTIDINE 20 MG TAB PO SCH ×2 (08:26→21:54)
[2021-01-11] MEDS: ZINC SULFATE 220 MG CAP PO SCH (08:26)
[2021-01-11] MEDS: APIXABAN 5 MG TAB PO SCH ×2 (08:26→21:54)
[2021-01-11] MEDS: ASCORBIC ACID 500 MG TAB PO SCH (08:26)
[2021-01-11] MEDS: ALBUTEROL HFA INHALER INHALATION SCH ×3 (08:55→20:00)
[2021-01-11 09:06] LABS: Basophils % (A) 0.5 %; Eosinophils # (A) 0.06 X 10*3/uL (0.04-0.35); Eosinophils % (A) 0.3 %; HGB 13.3 g/dL (13.0-17.0); Lymphocytes # (A) 1.53 X 10*3/uL (0.90-5.00); Lymphocytes % (A) 8.2 %; MCH 27.1 pg (27.0-32.0); MCHC 32.4 g/dL (32.0-37.0); MCV 83.5 fL (80.0-97.0); Mean Platelet Volume 9.1 fL (9.5-12.2); Monocytes # (A) 0.73 X 10*3/uL (0.20-1.00); Monocytes % (A) 3.9 %; Neutrophils # (A) 15.74 X 10*3/uL (1.80-7.70); Neutrophils % (A) 84.1 %; Platelet Count 323 X 10*3/uL (140-440); RBC 4.91 X 10*6/uL (4.40-5.60); WBC 18.73 X 10*3/uL (4.50-10.00)
[2021-01-11 11:26] LABS: Glucose,Whole Blood 204 mg/dL (75-99)
--- NOTE | 2021-01-11 11:55 | P.PN ---
Subjective Progress Note Date: 01/11/21 Principal diagnosis: Hypoxemic, COVID-19 pneumonia On 01/10/2021 patient seen in follow-up on medical surgical floor. He is awake and alert, in no acute distress, he is currently on 15 L of oxygen, pulse ox is 95%, overall he is feeling better, breathing easier, he has completed a course of Baricitinib, she remains on Decadron, he is on Eliquis 10 mg twice a day for evidence of DVT in the mid and upper distal popliteal vein. Chest x-ray shows patchy stable bilateral lung infiltrates that are nonspecific but compatible with atypical pneumonia. Restless BEEN reviewed, whether, is relatively stable at 14.9, hemoglobin is 14.7, patient's d-dimer is 12.92, improved from 34.1, sodium is 128, potassium is 4.3, chloride is 97, B1 is 50 creatinine 0.84, LDH is improving and is down to 1937, his CRP is up to 16.8. On 01/11/2021 patient's follow-up on medical surgical floor. He is awake and alert, in no acute distress, currently FiO2 down to 12 L, from 15 L on yesterday 's exam, his pulse ox on 12 L of oxygen is 94-97%, his breathing quite comfortably, no fever or chills, no acute events overnight, no chest discomfort. Patient is up in the chair, his been ambulating to the bathroom, tolerates activity fairly well. Completed a course of Baricitinib, currently remains on Decadron 6 mg daily, he is on Eliquis for a newly diagnosed DVT, and COVID-19 vitamins. His CTA chest showed no evidence of pulmonary embolism. Today's labs have been reviewed, his white blood cell count is 18.7, hemoglobin is 13.3, inflammatory markers and d-dimer are still pending for today Objective - Vital Signs Vital signs: Vital Signs Temp 99.0 F 01/11/21 10:00 Pulse 102 H 01/11/21 10:00 Resp 20 01/11/21 10:00 BP 116/75 01/11/21 10:00 Pulse Ox 94 L 01/11/21 10:00 Intake & Output 01/10/21 01/11/21 01/11/21 18:59 06:59 18:59 Other: Voiding Method Toilet Urinal # Voids 2 3 - Exam GENERAL EXAM: Alert, very pleasant, 40-year-old white male, on 12 L of oxygen with a pulse ox of 95% comfortable in no apparent distress. HEAD: Normocephalic/atraumatic. EYES: Normal reaction of pupils, equal size. Conjunctiva pink, sclera white. NOSE: Clear with pink turbinates. THROAT: No erythema or exudates. NECK: No masses, no JVD, no thyroid enlargement, no adenopathy. CHEST: No chest wall deformity. Symmetrical expansion. LUNGS: Equal air entry with no crackles, wheeze, rhonchi or dullness. CVS: Regular rate and rhythm, normal S1 and S2, no gallops, no murmurs, no rubs ABDOMEN: Soft, nontender. No hepatosplenomegaly, normal bowel sounds, no guarding or rigidity. EXTREMITIES: No clubbing, no edema, no cyanosis, 2+ pulses and upper and lower extremities. MUSCULOSKELETAL: Muscle strength and tone normal. SPINE: No scoliosis or deformity SKIN: No rashes CENTRAL NERVOUS SYSTEM: Alert and oriented -3. No focal deficits, tone is normal in all 4 extremities. PSYCHIATRIC: Alert and oriented -3. Appropriate affect. Intact judgment and insight. - Labs CBC & Chem 7: 01/11/21 05:52 01/10/21 07:55 Labs: Abnormal Lab Results - Last 24 Hours (Table) 01/10/21 01/10/21 01/10/21 Range/Units 07:55 15:24 16:42 WBC 14.9 H (3.8-10.6) k/uL MPV (9.5-12.2) fL Immature Gran # (0.00-0.04) X 10*3/uL Neutrophils # 13.5 H (1.3-7.7) k/uL Lymphocytes # 0.5 L (1.0-4.8) k/uL Sodium 128 L (137-145) mmol/L Chloride 97 L (98-107) mmol/L Glucose 229 H (74-99) mg/dL POC Glucose (mg/dL) 227 H (75-99) mg/dL Calcium 8.3 L (8.4-10.2) mg/dL AST 61 H (17-59) U/L ALT 77 H (4-49) U/L Total Protein 6.0 L (6.3-8.2) g/dL Albumin 2.8 L (3.5-5.0) g/dL 01/10/21 01/10/21 01/11/21 Range/Units 16:55 19:58 05:52 WBC 18.73 H (3.8-10.6) k/uL MPV 9.1 L (9.5-12.2) fL Immature Gran # 0.57 H (0.00-0.04) X 10*3/uL Neutrophils # 15.74 H (1.3-7.7) k/uL Lymphocytes # (1.0-4.8) k/uL Sodium (137-145) mmol/L Chloride (98-107) mmol/L Glucose (74-99) mg/dL POC Glucose (mg/dL) 189 H 140 H (75-99) mg/dL Calcium (8.4-10.2) mg/dL AST (17-59) U/L ALT (4-49) U/L Total Protein (6.3-8.2) g/dL Albumin (3.5-5.0) g/dL 01/11/21 01/11/21 Range/Units 06:48 11:24 WBC (3.8-10.6) k/uL MPV (9.5-12.2) fL Immature Gran # (0.00-0.04) X 10*3/uL Neutrophils # (1.3-7.7) k/uL Lymphocytes # (1.0-4.8) k/uL Sodium (137-145) mmol/L Chloride (98-107) mmol/L Glucose (74-99) mg/dL POC Glucose (mg/dL) 108 H 204 H (75-99) mg/dL Calcium (8.4-10.2) mg/dL AST (17-59) U/L ALT (4-49) U/L Total Protein (6.3-8.2) g/dL Albumin (3.5-5.0) g/dL Microbiology - Last 24 Hours (Table) 01/09/21 20:58 Blood Culture - Preliminary Blood No Growth after 24 hours 01/04/21 19:01 Blood Culture - Final Blood No Growth after 144 hours Assessment and Plan Plan: Assessment: #1. Acute hypoxic respiratory failure related to COVID-19 pneumonia, patient is currently on 12 L of oxygen. He has completed a course of Baricitinib. #2. Acute COVID-19 infection/pneumonia, and patient has only received 1 dose of COVID-19 vaccination #3. Elevated inflammatory markers, improved on today's labs #4. Elevated d-dimer, related to COVID-19. No CT evidence of pulmonary embolism #5. Acute DVT in the popliteal vein in the left leg , patient has been started on Eliquis Plan: Continue weaning FiO2 and patient's currently down to 12 L Maintaining O2 saturations at or above 90% Clinically patient remains stable, improving, breathing comfortably His completed a course of Baricitinib Continue oral anticoagulation for newly diagnosed DVT in the left leg Continue on Decadron Continue vitamin D, C, and zinc Continue monitoring for worsening dyspnea or hypoxia Once FiO2 requirement is down to 5 L or less may be considered for discharge home I performed a history & physical examination of the patient and discussed their management with my nurse practitioner, Shelli Dominguez. I reviewed the nurse practitioner's note and agree with the documented findings and plan of care. Lung sounds are positive for diminished breath sounds throughout the lung gamez. The findings and the impression was discussed with the patient. I attest to the documentation by the nurse practitioner. Time with Patient: Less than 30
[2021-01-11 16:03] LABS: African American GFR (CKD) 121.7 (60.0-200.0); Anion Gap 14.9 mmol/L (4.00-12.00); BUN/Creat Ratio 14.44 Ratio (12.00-20.00); Calcium 8.7 mg/dL (8.7-10.3); Carbon Dioxide 24.1 mmol/L (21.6-31.8); Potassium 4.8 mmol/L (3.5-5.5)
[2021-01-11 16:45] LABS: Glucose,Whole Blood 186 mg/dL (75-99)
[2021-01-11] MEDS: SODIUM CHLORIDE 0.9% 1,000 ML IV SCH (17:39)
--- NOTE | 2021-01-11 18:48 | PN ---
PROGRESS NOTE DATE OF SERVICE: 01/11/2021 This 40-year-old gentleman who was admitted with acute COVID-19 infection also had significant bilateral interstitial pneumonia and acute hypoxia. Venous Doppler showed DVT also. No chest pain. No palpitations. No fever. PHYSICAL EXAMINATION: Alert and oriented x3. Pulse 109, blood pressure 126/78, respiration 20, temperature 98.2, pulse ox 94% on 9 L nasal cannula. HEENT: Conjunctivae normal. NECK: No jugular venous distention. CARDIOVASCULAR: S1, S2 muffled. RESPIRATION: Breath sounds diminished at the bases. A few scattered rhonchi. ABDOMEN: Soft. NERVOUS SYSTEM: No focal deficit. LABS: WBC 18.73. Other labs are noted. ASSESSMENT: 1. Acute COVID-19 infection with acute bilateral COVID-19 interstitial pneumonia with acute hypoxic respiratory failure. 2. Deep vein thrombosis of the right leg, popliteal. 3. 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 4. Continued fever. 5. Elevated inflammatory markers of COVID-19. 6. Elevated D-dimer. 7. Transaminitis. 8. History of obstructive sleep apnea. 9. Gastroesophageal reflux disease. 10.Obesity with body mass index of 36.2. 11.Elevated white count. 12.Elevated procalcitonin. 13.Increased AST. 14.Diarrhea; possible GI manifestation of COVID-19, improved. 15.Hyponatremia. 16.FULL CODE. RECOMMENDATIONS AND DISCUSSION: I recommend to continue current medications, continue with symptomatic treatment. Will try to titrate down the O2, and if the oxygen saturations are acceptable and okay with Pulmonary, the patient will be discharged in the next 24 to 48 hours. Again, prognosis is guarded. Further recommendations to follow. MMODL / IJN: [id number] /
[2021-01-11 21:16] LABS: Glucose,Whole Blood 147 mg/dL (75-99)
[2021-01-12 07:20] LABS: Glucose,Whole Blood 107 mg/dL (75-99)
[2021-01-12] MEDS: INSULIN ASPART (NovoLOG) 100 UNIT/ML VIAL SQ SCH ×2 (07:52→12:17)
--- NOTE | 2021-01-12 07:54 | XR ---
EXAMINATION TYPE: XR chest 1V portable DATE OF EXAM: 01/12/2021 Comparison: 01/09/2021 Clinical History: 40-year-old male SOB Findings: Heart is borderline in size. Diffuse interstitial and patchy confluence bilateral airspace opacities, mostly in the periphery of the lungs persist without significant change. No pneumothorax. Impression: Continued bilateral airspace disease, possible COVID pneumonia.
[2021-01-12] MEDS: ALBUTEROL HFA INHALER INHALATION SCH ×2 (08:36→11:52)
[2021-01-12] MEDS: DEXAMETHASONE SOD PHOSPHATE 10 MG/ML 1 ML VIAL IVP SCH (09:34)
[2021-01-12] MEDS: ACETAMINOPHEN TAB 325 MG TAB PO PRN (09:35)
[2021-01-12] MEDS: CHOLECALCIFEROL 25 MCG (1000 IU) TABLET PO SCH (09:35)
[2021-01-12] MEDS: APIXABAN 5 MG TAB PO SCH (09:35)
[2021-01-12] MEDS: FAMOTIDINE 20 MG TAB PO SCH (09:35)
[2021-01-12] MEDS: ASCORBIC ACID 500 MG TAB PO SCH (09:35)
[2021-01-12] MEDS: ZINC SULFATE 220 MG CAP PO SCH (09:35)
[2021-01-12 09:45] LABS: African American GFR (CKD) 126.7 (60.0-200.0); Anion Gap 13.5 mmol/L (4.00-12.00); BUN/Creat Ratio 19.24 Ratio (12.00-20.00); Blood Urea Nitrogen 15.7 mg/dL (9.0-27.0); Calcium 8.6 mg/dL (8.7-10.3); Carbon Dioxide 23.6 mmol/L (21.6-31.8); Non-African American GFR(CKD) 109.3 (60.0-200.0); Potassium 4.5 mmol/L (3.5-5.5)
[2021-01-12 09:53] LABS: Basophils # (A) 0.06 X 10*3/uL (0.00-0.10); Basophils % (A) 0.4 %; Eosinophils # (A) 0.04 X 10*3/uL (0.04-0.35); Eosinophils % (A) 0.2 %; HCT 42.5 % (39.6-50.0); HGB 13.6 g/dL (13.0-17.0); Lymphocytes # (A) 1.56 X 10*3/uL (0.90-5.00); Lymphocytes % (A) 9.4 %; MCH 26.7 pg (27.0-32.0); MCV 83.3 fL (80.0-97.0); Mean Platelet Volume 9.4 fL (9.5-12.2); Monocytes # (A) 0.84 X 10*3/uL (0.20-1.00); Monocytes % (A) 5.1 %; Neutrophils # (A) 13.59 X 10*3/uL (1.80-7.70); Neutrophils % (A) 81.7 %; Platelet Count 370 X 10*3/uL (140-440); RDW 13.9 % (11.5-14.5); WBC 16.63 X 10*3/uL (4.50-10.00)
[2021-01-12 10:50] VITALS: RESP 18
[2021-01-12 11:52] LABS: Glucose,Whole Blood 186 mg/dL (75-99)
--- NOTE | 2021-01-12 12:47 | P.PN ---
Subjective Progress Note Date: 01/12/21 Principal diagnosis: Hypoxemic, COVID-19 pneumonia On 01/10/2021 patient seen in follow-up on medical surgical floor. He is awake and alert, in no acute distress, he is currently on 15 L of oxygen, pulse ox is 95%, overall he is feeling better, breathing easier, he has completed a course of Baricitinib, she remains on Decadron, he is on Eliquis 10 mg twice a day for evidence of DVT in the mid and upper distal popliteal vein. Chest x-ray shows patchy stable bilateral lung infiltrates that are nonspecific but compatible with atypical pneumonia. Restless BEEN reviewed, whether, is relatively stable at 14.9, hemoglobin is 14.7, patient's d-dimer is 12.92, improved from 34.1, sodium is 128, potassium is 4.3, chloride is 97, B1 is 50 creatinine 0.84, LDH is improving and is down to 1937, his CRP is up to 16.8. On 01/11/2021 patient's follow-up on medical surgical floor. He is awake and alert, in no acute distress, currently FiO2 down to 12 L, from 15 L on yesterday 's exam, his pulse ox on 12 L of oxygen is 94-97%, his breathing quite comfortably, no fever or chills, no acute events overnight, no chest discomfort. Patient is up in the chair, his been ambulating to the bathroom, tolerates activity fairly well. Completed a course of Baricitinib, currently remains on Decadron 6 mg daily, he is on Eliquis for a newly diagnosed DVT, and COVID-19 vitamins. His CTA chest showed no evidence of pulmonary embolism. Today's labs have been reviewed, his white blood cell count is 18.7, hemoglobin is 13.3, inflammatory markers and d-dimer are still pending for today On 01/12/2021 patient seen in follow-up on medical surgical floor. He is awake and alert, in no acute distress, his FiO2 is down to 5 L, and his pulse ox is 91-93%, he is breathing comfortably, mild cough, improving, lung sounds reveal some minimal basilar crackles, chest x-ray today shows continued bilateral airspace disease, diffuse interstitial and patchy confluent bilateral airspace opacities. Patient remains on Decadron 6 mg daily, he is on COVID-19 vitamins, he is on Eliquis for newly diagnosed left lower extremity DVT. Clinically has been improving, he has had no acute events overnight, tolerating ambulation in the room. Objective - Vital Signs Vital signs: Vital Signs Temp 98.8 F 01/12/21 10:00 Pulse 107 H 01/12/21 10:00 Resp 18 01/12/21 10:00 BP 114/73 01/12/21 10:00 Pulse Ox 92 L 01/12/21 10:00 Intake & Output 01/11/21 01/12/21 01/12/21 18:59 06:59 18:59 Other: # Voids 3 3 # Bowel Movements 1 - Exam GENERAL EXAM: Alert, very pleasant, 40-year-old white male, on 5 L of oxygen with a pulse ox of 95% comfortable in no apparent distress. HEAD: Normocephalic/atraumatic. EYES: Normal reaction of pupils, equal size. Conjunctiva pink, sclera white. NOSE: Clear with pink turbinates. THROAT: No erythema or exudates. NECK: No masses, no JVD, no thyroid enlargement, no adenopathy. CHEST: No chest wall deformity. Symmetrical expansion. LUNGS: Equal air entry with no crackles, wheeze, rhonchi or dullness. CVS: Regular rate and rhythm, normal S1 and S2, no gallops, no murmurs, no rubs ABDOMEN: Soft, nontender. No hepatosplenomegaly, normal bowel sounds, no guarding or rigidity. EXTREMITIES: No clubbing, no edema, no cyanosis, 2+ pulses and upper and lower extremities. MUSCULOSKELETAL: Muscle strength and tone normal. SPINE: No scoliosis or deformity SKIN: No rashes CENTRAL NERVOUS SYSTEM: Alert and oriented -3. No focal deficits, tone is normal in all 4 extremities. PSYCHIATRIC: Alert and oriented -3. Appropriate affect. Intact judgment and insight. - Labs CBC & Chem 7: 01/12/21 05:56 01/12/21 05:56 Labs: Abnormal Lab Results - Last 24 Hours (Table) 01/11/21 01/11/21 01/11/21 Range/Units 05:52 16:40 21:12 WBC (4.50-10.00) X 10*3/uL MCH (27.0-32.0) pg MPV (9.5-12.2) fL Immature Gran # (0.00-0.04) X 10*3/uL Neutrophils # (1.80-7.70) X 10*3/uL Sodium (135-145) mmol/L Anion Gap 14.90 H (4.00-12.00) mmol/L POC Glucose (mg/dL) 186 H 147 H (75-99) mg/dL Calcium (8.7-10.3) mg/dL 01/12/21 01/12/21 01/12/21 Range/Units 05:56 05:56 07:00 WBC 16.63 H (4.50-10.00) X 10*3/uL MCH 26.7 L (27.0-32.0) pg MPV 9.4 L (9.5-12.2) fL Immature Gran # 0.54 H (0.00-0.04) X 10*3/uL Neutrophils # 13.59 H (1.80-7.70) X 10*3/uL Sodium 133 L (135-145) mmol/L Anion Gap 13.50 H (4.00-12.00) mmol/L POC Glucose (mg/dL) 107 H (75-99) mg/dL Calcium 8.6 L (8.7-10.3) mg/dL 01/12/21 Range/Units 11:43 WBC (4.50-10.00) X 10*3/uL MCH (27.0-32.0) pg MPV (9.5-12.2) fL Immature Gran # (0.00-0.04) X 10*3/uL Neutrophils # (1.80-7.70) X 10*3/uL Sodium (135-145) mmol/L Anion Gap (4.00-12.00) mmol/L POC Glucose (mg/dL) 186 H (75-99) mg/dL Calcium (8.7-10.3) mg/dL Microbiology - Last 24 Hours (Table) 01/09/21 20:58 Blood Culture - Preliminary Blood No Growth after 48 hours Assessment and Plan Plan: Assessment: #1. Acute hypoxic respiratory failure related to COVID-19 pneumonia, patient is currently on 5 L of oxygen. He has completed a course of Baricitinib. #2. Acute COVID-19 infection/pneumonia, and patient has only received 1 dose of COVID-19 vaccination #3. Elevated inflammatory markers, improved on today's labs #4. Elevated d-dimer, related to COVID-19. No CT evidence of pulmonary embolism #5. Acute DVT in the popliteal vein in the left leg , patient has been started on Eliquis Plan: Patient is improving Breathing easier, FiO2 is currently down to 5 L Maintaining stable O2 saturations above 90% No fever or chills, vital signs have been stable Tolerating intubation in the room From pulmonary perspective he stable for discharge home today on home oxygen at 4-5 L/m He will complete 5 more days of Decadron 4 mg daily He will need to complete at least 3 months of oral anticoagulation and patient has been started on Eliquis for left lower extremity DVT Continue on vitamin C, D and zinc Outpatient follow-up with Dr. Moran in the office in 2 weeks I performed a history & physical examination of the patient and discussed their management with my nurse practitioner, Shelli Dominguez. I reviewed the nurse practitioner's note and agree with the documented findings and plan of care. Lung sounds are positive for diminished breath sounds throughout the lung gamez. The findings and the impression was discussed with the patient. I attest to the documentation by the nurse practitioner. Time with Patient: Less than 30
[2021-01-12 14:04] VITALS: BP 114/76; PULSE 109; TEMP 98.2
--- NOTE | 2021-01-13 09:15 | P.DS ---
Providers Date of admission: 01/01/21 15:35 Expected date of discharge: 01/12/21 Attending physician: Kenyatta Chávez Consults: 01/01/21 15:39 Consult Physician Routine Consulting Provider: Maikel Fung Consult Reason/Comments: covid 19 Do you want consulting provider notified?: Yes Primary care physician: Stated None Hospital Course: Final diagnosis Acute COVID-19 infection with acute bilateral COVID-19 interstitial pneumonia with acute hypoxic respiratory failure deep vein thrombosis of the right leg popliteal Possible steroid-induced diabetes mellitus type 2 Continued fevers elevated inflammatory markers of COVID-19 Elevated d-dimer Transaminitis history of obstructive sleep apnea gastroesophageal reflux disease Obesity with a body mass index of 36.2 elevated white count elevated pro calcitonin Increased AST Diarrhea, possible GI manifestation of COVID-19, improved hyponatremia Full code Discharge disposition Patient is being discharged in a stable condition with guarded prognosis to home. Patient will follow-up with Dr. Agudelo in the outpatient setting upon discharge as scheduled. Patient is to follow-up with pulmonary in the outpatient setting in the next 2-3 weeks. Patient Will continue with vitamin and zinc supplements along with dexamethasone and oral eliquis on discharge. Patient Will continue with 5 L of oxygen via nasal cannula secondary to COVID- 19. Total time taken is greater than 35 minutes. Hospital course This is a 40-year-old male who was recently admitted with acute COVID-19 infection also had significant bilateral interstitial pneumonia with acute hypoxia. Venous Dopplers were done showing DVT as well and maintained on anticoagulation. Patient will continue with oral eliquis along with vitamin and zinc supplements and dexamethasone on discharge. Patient does not currently have a primary care provider and resources were provided and an appointment was scheduled Dr. Agudelo. Patient was also instructed to follow-up with pulmonary in the outpatient setting as scheduled in the next 3 weeks. Encouraged the patient to continue with fluids and rest and monitor for any worsening symptoms of Covid and report to the nearest emergency department if having worsening symptoms. Currently no reports of chest pain, worsening shortness of breath, or palpitations. Patient is afebrile. No reports of nausea or vomiting and patient is tolerating diet. Patient will be discharged home today. Guarded prognosis. On exam vital signs are stable. Cardio S1, S2 are muffled. Respiratory system shows diminished breath sounds at the bases with no wheezing or rhonchi noted. Abdomen is soft and nontender. Nervous system shows no focal deficits. Please refer to medication reconciliation sheet for a list of medications. Patient Condition at Discharge: Stable Plan - Discharge Summary New Discharge Prescriptions: New Dexamethasone [Decadron] 4 mg PO DAILY 5 Days #5 tablet Albuterol Inhaler [Ventolin Hfa Inhaler] 2 puff INHALATION RT-QID PRN 30 Days #1 unit PRN Reason: Shortness Of Breath Apixaban [Eliquis Starter Pack (for VTE)] 5 - 10 mg PO DIRECTED 30 Days #1 each Zinc Sulfate [Orazinc] 220 mg PO DAILY 30 Days #30 cap Apixaban [Eliquis] 5 mg PO BID 60 Days #120 tab Famotidine [Pepcid] 20 mg PO BID 30 Days #60 tab Ascorbic Acid [Vitamin C] 500 mg PO DAILY 30 Days #30 tab Cholecalciferol [Vitamin D3 (25 Mcg = 1000 Iu)] 25 mcg PO DAILY #30 tablet Continue Acetaminophen [Tylenol] 1,000 mg PO Q4H PRN PRN Reason: Pain Ibuprofen [Motrin Ib] 800 mg PO Q8H PRN PRN Reason: Pain Or Fever > 100.5 Discharge Medication List Acetaminophen [Tylenol] 1,000 mg PO Q4H PRN 04/17/18 [History] Ibuprofen [Motrin Ib] 800 mg PO Q8H PRN 01/01/21 [History] Albuterol Inhaler [Ventolin Hfa Inhaler] 2 puff INHALATION RT-QID PRN 30 Days #1 unit 01/12/21 [Rx] Apixaban [Eliquis Starter Pack (for VTE)] 5 - 10 mg PO DIRECTED 30 Days #1 each 01/12/21 [Rx] Apixaban [Eliquis] 5 mg PO BID 60 Days #120 tab 01/12/21 [Rx] Ascorbic Acid [Vitamin C] 500 mg PO DAILY 30 Days #30 tab 01/12/21 [Rx] Cholecalciferol [Vitamin D3 (25 Mcg = 1000 Iu)] 25 mcg PO DAILY #30 tablet 01/12/21 [Rx] Dexamethasone [Decadron] 4 mg PO DAILY 5 Days #5 tablet 01/12/21 [Rx] Famotidine [Pepcid] 20 mg PO BID 30 Days #60 tab 01/12/21 [Rx] Zinc Sulfate [Orazinc] 220 mg PO DAILY 30 Days #30 cap 01/12/21 [Rx] Follow up Appointment(s)/Referral(s): Sohan Agudelo MD [REFERRING] - 01/17/21 10:10 am [facility] [NON-STAFF] - As Needed (oxygen) Carol Moran MD [STAFF PHYSICIAN] - 02/15/21 2:00 pm (With Mauricio ) Activity/Diet/Wound Care/Special Instructions: Please go to [email or web address] to find a local primary care physician. Activity Limited until follow-up follow up with primary care provider on discharge Follow-up with pulmonary outpatient Establish with primary care provider continue taking medications as prescribed Continue with oxygen via nasal cannula at 5 L secondary to COVID-19 Discharge Disposition: HOME SELF-CARE
== END 2021-01-12 16:39 | disposition home or self-care (01) | DRG 177 ==
LOC: EC 12:00 → 4SSUR 15:35
PROVIDERS: ADMIT Internal Medicine; ATTEND Internal Medicine
PROC: XW0DXM6 Introduction of Baricitinib into Mouth and Pharynx, External Approach, New Technology Group 6 (ICD-10-PCS; principal; 2021-01-04)
PROC: 5A0955A Assistance with Respiratory Ventilation, Greater than 96 Consecutive Hours, High Flow/Velocity Cannula (ICD-10-PCS; 2021-01-04)
DX: U07.1 COVID-19 (principal); J12.82 Pneumonia due to coronavirus disease 2019; J96.01 Acute respiratory failure with hypoxia; I82.433 Acute embolism and thrombosis of popliteal vein, bilateral; E87.1 Hypo-osmolality and hyponatremia; A08.39 Other viral enteritis; G47.33 Obstructive sleep apnea (adult) (pediatric); E09.9 Drug or chemical induced diabetes mellitus without complications; T38.0X5A Adverse effect of glucocorticoids and synthetic analogues, initial encounter; K21.9 Gastro-esophageal reflux disease without esophagitis; R74.01 Elevation of levels of liver transaminase levels; E66.9 Obesity, unspecified; Z68.36 Body mass index [BMI] 36.0-36.9, adult; Z87.39 Personal history of other diseases of the musculoskeletal system and connective tissue; Z71.3 Dietary counseling and surveillance
CPT/HCPCS: 36415; 71045; 71275; 80048; 80053; 82728; 83605; 83615; 83735; 84145; 85025; 85379; 85610; 85730; 86140; 87040; 87636; 93005; 93970; 94640; 94760; 96361; 96374; 99291

== ENCOUNTER 2021-02-13 22:44 | Observation (INO) | payer OTHER ==
[2021-02-13] MEDS ORDERED: IBUPROFEN IV 600 MG in SODIUM CHLORIDE 0.9% 250 ML IV STA (23:03)
[2021-02-13] MEDS ORDERED: diphenhydrAMINE 50 MG/ML 1 ML VIAL IVP STA (23:05)
[2021-02-13] MEDS ORDERED: METOCLOPRAMIDE 5 MG/ML 2 ML VIAL IVP STA (23:05)
[2021-02-14 00:05] LABS: Basophils % (A) 0 %; Eosinophils # (A) 0.1 k/uL (0-0.7); Eosinophils % (A) 1 %; HCT 41.3 % (39.0-53.0); HGB 13.4 gm/dL (13.0-17.5); Lymphocytes # (A) 1.4 k/uL (1.0-4.8); Lymphocytes % (A) 9 %; MCH 26.9 pg (25.0-35.0); MCHC 32.5 g/dL (31.0-37.0); MCV 82.9 fL (80.0-100.0); Monocytes # (A) 0.6 k/uL (0-1.0); Monocytes % (A) 4 %; Neutrophils # (A) 13.3 k/uL (1.3-7.7); Neutrophils % (A) 86 %; Platelet Count 304 k/uL (150-450); RBC 4.98 m/uL (4.30-5.90); RDW 14.5 % (11.5-15.5); WBC 15.5 k/uL (3.8-10.6)
[2021-02-14] MEDS: SODIUM CHLORIDE 0.9% 500 ML 500 ML IV SCH ×2 (00:08→00:43)
[2021-02-14 00:21] LABS: Albumin 3.9 g/dL (3.5-5.0); Calcium 9.4 mg/dL (8.4-10.2); Potassium 4.4 mmol/L (3.5-5.1); Total Bilirubin 0.5 mg/dL (0.2-1.3); Total Protein 7.2 g/dL (6.3-8.2)
--- NOTE | 2021-02-14 00:34 | XR ---
EXAMINATION TYPE: XR chest 2V DATE OF EXAM: 02/14/2021 COMPARISON: 01/12/2021 HISTORY: Fever TECHNIQUE: 2 views FINDINGS: Heart is normal. There is coarsening interstitial markings. There is no pleural effusion. T here are no hilar masses. There is no mediastinal adenopathy. IMPRESSION: Mild pulmonary interstitial infiltrates. There is improvement compared to last exam.
[2021-02-14] MEDS ORDERED: ACETAMINOPHEN TAB 500 MG TAB PO STA (01:40)
--- NOTE | 2021-02-14 01:46 | ED ---
General Adult HPI - General Chief complaint: Headache Stated complaint: Headache Time Seen by Provider: 02/13/21 22:55 Source: patient Mode of arrival: ambulatory Limitations: no limitations - History of Present Illness Initial comments: 40 year-old male patient presents to the emergency department for evaluation of headache x3 days. States that he has headache that goes from his neck up to his eyes. Denies neck stiffness. Denies blurred or double vision. Denies numbness, tingling, or weakness in the extremities. Mary head injury. Does have persist ent cough after being diagnosed with COVID in December. States that he was hospitalized and is still on oxygen from this. States he has felt hot like he had a fever over the last couple of days. States he did have an episode of vomiting today. Does have history of migraines. Denies any diarrhea or c onstipation. Denies any rash or wounds. Patient denies any recent rash, chest pain, back pain, numbness, tingling, dizziness, weakness, hematuria, dysuria, urinary urgency, urinary frequency, or any other complaints. - Related Data Home Medications Medication Instructions Recorded Confirmed Acetaminophen [Tylenol] 1,000 mg PO Q4H PRN 04/17/18 01/01/21 Ibuprofen [Motrin Ib] 800 mg PO Q8H PRN 01/01/21 01/01/21 Previous Rx's Medication Instructions Recorded Albuterol Inhaler [Ventolin Hfa 2 puff INHALATION RT-QID PRN 30 01/12/21 Inhaler] Days #1 unit Apixaban [Eliquis Starter Pack 5 - 10 mg PO DIRECTED 30 Days 01/12/21 (for VTE)] #1 each Apixaban [Eliquis] 5 mg PO BID 60 Days #120 tab 01/12/21 Ascorbic Acid [Vitamin C] 500 mg PO DAILY 30 Days #30 tab 01/12/21 Cholecalciferol [Vitamin D3 (25 25 mcg PO DAILY #30 tablet 01/12/21 Mcg = 1000 Iu)] Dexamethasone [Decadron] 4 mg PO DAILY 5 Days #5 tablet 01/12/21 Famotidine [Pepcid] 20 mg PO BID 30 Days #60 tab 01/12/21 Zinc Sulfate [Orazinc] 220 mg PO DAILY 30 Days #30 cap 01/12/21 Allergies Allergy/AdvReac Type Severity Reaction Status Date / Time No Known Allergies Allergy Verified 02/13/21 22:54 Review of Systems ROS Statement: Those systems with pertinent positive or pertinent negative responses have been documented in the HPI. ROS Other: All systems not noted in ROS Statement are negative. Past Medical History Past Medical History: GERD/Reflux, Sleep Apnea/CPAP/BIPAP Additional Past Medical History / Comment(s): rt knee torn meniscus,no cpap,cortisone injection February 2018,borderline diabetes History of Any Multi-Drug Resistant Organisms: None Reported Past Surgical History: Orthopedic Surgery Additional Past Surgical History / Comment(s): thumb procedure, rt knee Past Anesthesia/Blood Transfusion Reactions: No Reported Reaction Additional Past Anesthesia/Blood Transfusion Reaction / Comment(s): no hx blood transfusion Past Psychological History: No Psychological Hx Reported Smoking Status: Never smoker Past Alcohol Use History: Daily Past Drug Use History: None Reported - Past Family History Mother Family Medical History: No Reported History General Exam Limitations: no limitations General appearance: alert, in no apparent distress, other (This is a well- developed, well-nourished adult male in no acute distress.) Eye exam: Present: normal appearance, PERRL, EOMI. Absent: scleral icterus, conjunctival injection, periorbital swelling ENT exam: Present: normal exam, normal oropharynx, mucous membranes moist Respiratory exam: Present: normal lung sounds bilaterally. Absent: respiratory distress, wheezes, rales, rhonchi, stridor Cardiovascular Exam: Present: normal rhythm, tachycardia, normal heart sounds. Absent: systolic murmur, diastolic murmur, rubs, gallop, clicks GI/Abdominal exam: Present: soft, normal bowel sounds. Absent: distended, tenderness, guarding, rebound, rigid Neurological exam: Present: alert, oriented X3, CN II-XII intact Psychiatric exam: Present: normal affect, normal mood Skin exam: Present: warm, dry, intact, normal color. Absent: rash Course Vital Signs 02/13/21 02/13/21 02/14/21 22:48 23:32 00:42 Temperature 100.6 F H 102.7 F H 101.6 F H Pulse Rate 122 H 113 H Respiratory 20 24 Rate Blood Pressure 105/68 117/72 O2 Sat by Pulse 95 98 Oximetry Medical Decision Making - Medical Decision Making 40 year-old male patient presents with three day history of headache and subjective fevers. Patient did have COVID and was admitted on 01/01, still oxygen dependent. Physical examination is unremarkable. Lungs clear to auscultation. No rash. Abdomen soft and non-tender. He has no meningismus. Labs showed elevated WBC count 15.5. Normal lactic acid. Negative urine. Tested negative for Influenza and COVID. Chest xray showed improving infiltrates. He will be admitted to rule out bacteremia, antibiotics initiated. He is agreeable with this plan. Case discussed with my attending Dr. Keith. - Lab Data Result diagrams: 02/13/21 23:56 02/13/21 23:56 Lab Results 02/13/21 02/13/21 02/13/21 Range/Units 23:56 23:56 23:56 WBC 15.5 H (3.8-10.6) k/uL RBC 4.98 (4.30-5.90) m/uL Hgb 13.4 (13.0-17.5) gm/dL Hct 41.3 (39.0-53.0) % MCV 82.9 (80.0-100.0) fL MCH 26.9 (25.0-35.0) pg MCHC 32.5 (31.0-37.0) g/dL RDW 14.5 (11.5-15.5) % Plt Count 304 (150-450) k/uL MPV 7.0 Neutrophils % 86 % Lymphocytes % 9 % Monocytes % 4 % Eosinophils % 1 % Basophils % 0 % Neutrophils # 13.3 H (1.3-7.7) k/uL Lymphocytes # 1.4 (1.0-4.8) k/uL Monocytes # 0.6 (0-1.0) k/uL Eosinophils # 0.1 (0-0.7) k/uL Basophils # 0.0 (0-0.2) k/uL Sodium 130 L (137-145) mmol/L Potassium 4.4 (3.5-5.1) mmol/L Chloride 95 L (98-107) mmol/L Carbon Dioxide 25 (22-30) mmol/L Anion Gap 10 mmol/L BUN 17 (9-20) mg/dL Creatinine 1.27 H (0.66-1.25) mg/dL Est GFR (CKD-EPI)AfAm 80 (>60 ml/min/1.73 sqM) Est GFR (CKD-EPI)NonAf 69 (>60 ml/min/1.73 sqM) Glucose 155 H (74-99) mg/dL Plasma Lactic Acid Jairon 1.5 (0.7-2.0) mmol/L Calcium 9.4 (8.4-10.2) mg/dL Total Bilirubin 0.5 (0.2-1.3) mg/dL AST 24 (17-59) U/L ALT 19 (4-49) U/L Alkaline Phosphatase 70 (38-126) U/L Total Protein 7.2 (6.3-8.2) g/dL Albumin 3.9 (3.5-5.0) g/dL Urine Color Urine Appearance (Clear) Urine pH (5.0-8.0) Ur Specific [place] (1.001-1.035) Urine Protein (Negative) Urine Glucose (UA) (Negative) Urine Ketones (Negative) Urine Blood (Negative) Urine Nitrite (Negative) Urine Bilirubin (Negative) Urine Urobilinogen (<2.0) mg/dL Ur Leukocyte Esterase (Negative) Urine RBC (0-5) /hpf Urine WBC (0-5) /hpf Ur Squamous Epith Cells (0-4) /hpf Hyaline Casts (0-2) /lpf Urine Mucus (None) /hpf Coronavirus (PCR) (Not Detectd) Influenza Type A RNA (Not Detectd) Influenza Type B (PCR) (Not Detectd) 02/13/21 02/13/21 02/14/21 Range/Units 23:56 23:58 01:35 WBC (3.8-10.6) k/uL RBC (4.30-5.90) m/uL Hgb (13.0-17.5) gm/dL Hct (39.0-53.0) % MCV (80.0-100.0) fL MCH (25.0-35.0) pg MCHC (31.0-37.0) g/dL RDW (11.5-15.5) % Plt Count (150-450) k/uL MPV Neutrophils % % Lymphocytes % % Monocytes % % Eosinophils % % Basophils % % Neutrophils # (1.3-7.7) k/uL Lymphocytes # (1.0-4.8) k/uL Monocytes # (0-1.0) k/uL Eosinophils # (0-0.7) k/uL Basophils # (0-0.2) k/uL Sodium (137-145) mmol/L Potassium (3.5-5.1) mmol/L Chloride (98-107) mmol/L Carbon Dioxide (22-30) mmol/L Anion Gap mmol/L BUN (9-20) mg/dL Creatinine (0.66-1.25) mg/dL Est GFR (CKD-EPI)AfAm (>60 ml/min/1.73 sqM) Est GFR (CKD-EPI)NonAf (>60 ml/min/1.73 sqM) Glucose (74-99) mg/dL Plasma Lactic Acid Jairon (0.7-2.0) mmol/L Calcium (8.4-10.2) mg/dL Total Bilirubin (0.2-1.3) mg/dL AST (17-59) U/L ALT (4-49) U/L Alkaline Phosphatase (38-126) U/L Total Protein (6.3-8.2) g/dL Albumin (3.5-5.0) g/dL Urine Color Yellow Urine Appearance Clear (Clear) Urine pH 6.0 (5.0-8.0) Ur Specific [place] 1.035 (1.001-1.035) Urine Protein 1+ H (Negative) Urine Glucose (UA) Negative (Negative) Urine Ketones Trace H (Negative) Urine Blood Negative (Negative) Urine Nitrite Negative (Negative) Urine Bilirubin Negative (Negative) Urine Urobilinogen <2.0 (<2.0) mg/dL Ur Leukocyte Esterase Negative (Negative) Urine RBC 1 (0-5) /hpf Urine WBC 1 (0-5) /hpf Ur Squamous Epith Cells <1 (0-4) /hpf Hyaline Casts 3 H (0-2) /lpf Urine Mucus Many H (None) /hpf Coronavirus (PCR) Not Detected (Not Detectd) Influenza Type A RNA Not Detected (Not Detectd) Influenza Type B (PCR) Not Detected (Not Detectd) - Radiology Data Radiology results: report reviewed, image reviewed Disposition Clinical Impression: Fever of unknown origin, Leukocytosis Disposition: ADMITTED IP TO THIS [facility] Condition: Serious Referrals: Sohan Agudelo MD [Primary Care Provider] - 1-2 days Decision to Admit Reason: Admit from EC Decision Date: 02/14/21 Decision Time: 02:12
[2021-02-14 02:00] LABS: Appearance,Urine Clear (Clear); Bilirubin,Urine Negative (Negative); Color,Urine Yellow; Glucose,Urine (UA) Negative (Negative); Ketones,Urine Trace (Negative); Protein,Urine 1+ (Negative); Specific Gravity,Urine 1.035 (1.001-1.035)
[2021-02-14 02:01] LABS: Blood,Urine Negative (Negative); Hyaline Casts,Urine 3 /lpf (0-2); Leukocyte Esterase,Urine Negative (Negative); Mucus,Urine Many /hpf; Nitrite,Urine Negative (Negative); RBC,Urine 1 /hpf (0-5); Squamous Epithelial Cell,Urine <1 /hpf (0-4); Urobilinogen,Urine <2.0 mg/dL (<2.0); WBC,Urine 1 /hpf (0-5)
[2021-02-14] MEDS ORDERED: IBUPROFEN 400 MG TAB PO PRN (02:10)
[2021-02-14] MEDS ORDERED: cefTRIAXone IN SWFI 1,000 MG/10 ML SYRINGE IVP STA (02:10)
[2021-02-14] MEDS ORDERED: ACETAMINOPHEN TAB 325 MG TAB PO PRN (02:10)
[2021-02-14] MEDS ORDERED: VANCOMYCIN IV PER PHARMACY 1 EACH MISC MISCELLANE PRN (02:10)
[2021-02-14] MEDS ORDERED: NALOXONE 0.4 MG/ML 1 ML VIAL IV PRN (02:10)
[2021-02-14] MEDS ORDERED: VANCOMYCIN 1,750 MG in SODIUM CHLORIDE 0.9% 500 ML 500 ML IVPB STA (02:16)
[2021-02-14] MEDS: SODIUM CHLORIDE 0.9% 1,000 ML IV SCH ×2 (02:52→07:26)
[2021-02-14 08:42] VITALS: RESP 20
[2021-02-14 11:49] VITALS: BP 127/73; PULSE 105; TEMP 98.8
[2021-02-14] MEDS ORDERED: VANCOMYCIN 1,750 MG in SODIUM CHLORIDE 0.9% 500 ML 500 ML IVPB SCH (15:00)
--- NOTE | 2021-02-14 15:00 | P.HPIM ---
History of Present Illness Patient is pleasant 40-year-old male was on oxygen since his COVID-19 diagnosis in December. Patient was comparing of cough denied was also having or sputum production which although is whitish in color. Patient did have fever. Patient is also having a headache and fatigue. Patient is found to be hyponatremic and mild acute renal failure with creatinine 1.27 patient denied any dysuria denied any abdominal pain. Patient denied any other symptoms. Patient was started on antibiotics Rocephin and azithromycin. Chest x-ray showing bilateral persistent infiltrates. Patient is requesting to go home patient received IV fluids overnight with improvement in the heart rate patient did have leukocytosis. Patient apparently has much better compared to a yesterday as per the nursing staff. REVIEW OF SYSTEMS: CONSTITUTIONAL: As mentioned in HPI HEENT: No recent visual problems or hearing problems. Denied any sore throat. CARDIOVASCULAR: No chest pain, orthopnea, PND, no palpitations, no syncope. PULMONARY: No shortness of breath, no hemoptysis. GASTROINTESTINAL: No diarrhea, no nausea, no vomiting, no abdominal pain. NEUROLOGICAL: No headaches, no weakness, no numbness. HEMATOLOGICAL: Denies any bleeding or petechiae. GENITOURINARY: Denies any burning micturition, frequency, or urgency. MUSCULOSKELETAL/RHEUMATOLOGICAL: Denies any joint pain, swelling, or any muscle pain. ENDOCRINE: Denies any polyuria or polydipsia. The rest of the 14-point review of systems is negative. PHYSICAL EXAMINATION: GENERAL: The patient is alert and oriented x3, not in any acute distress. Well developed, well nourished. HEENT: Pupils are round and equally reacting to light. EOMI. No scleral icterus. No conjunctival pallor. Normocephalic, atraumatic. No pharyngeal erythema. No thyromegaly. CARDIOVASCULAR: S1 and S2 present. No murmurs, rubs, or gallops. PULMONARY mild bilateral rhonchi no wheezing or crackles. ABDOMEN: Soft, nontender, nondistended, normoactive bowel sounds. No palpable organomegaly. MUSCULOSKELETAL: No joint swelling or deformity. EXTREMITIES: No cyanosis, clubbing, or pedal edema. NEUROLOGICAL: Gross neurological examination did not reveal any focal deficits. SKIN: No rashes. Assessment and plan -Sepsis possibility of secondary bacterial bronchitis is secondary bacterial pneumonia patient will be discharged on Ceftin and doxycycline to cover both pneumococcus and staphylococcal infections. Patient is requesting to go home since patient is doing better feels better although didn't send him home and patient was requested to come back if he does worse or if he gets short of breath. -Acute renal failure received IV fluids overnight hypovolemic hyponatremia IV fluids overnight as mentioned above next and- leukocytosis to sepsis -Chronic hypoxemia and hypoxic respiratory failure since the his COVID-19 diagnoses and patient wears 3 L probably can cut it down to 2 L now as he is saturating well -Obesity and sleep apnea Past Medical History Past Medical History: GERD/Reflux, Sleep Apnea/CPAP/BIPAP Additional Past Medical History / Comment(s): rt knee torn meniscus,no cpap,cortisone injection February 2018,borderline diabetes History of Any Multi-Drug Resistant Organisms: None Reported Past Surgical History: Orthopedic Surgery Additional Past Surgical History / Comment(s): thumb procedure, rt knee Past Anesthesia/Blood Transfusion Reactions: No Reported Reaction Additional Past Anesthesia/Blood Transfusion Reaction / Comment(s): no hx blood transfusion Past Psychological History: No Psychological Hx Reported Smoking Status: Never smoker Past Alcohol Use History: Daily Past Drug Use History: None Reported - Past Family History Mother Family Medical History: No Reported History Medications and Allergies Home Medications Medication Instructions Recorded Confirmed Type Acetaminophen Tab [Tylenol Tab] 1,000 mg PO Q6HR PRN 02/14/21 02/14/21 History Cefuroxime Axetil [Ceftin] 500 mg PO BID 5 Days #10 tab 02/14/21 Rx Doxycycline Monohydrate [Monodox] 100 mg PO Q12HR #10 cap 02/14/21 Rx Famotidine [Pepcid] 20 mg PO BID #20 tablet 02/14/21 Rx Ibuprofen [Motrin Ib] 1,200 mg PO Q6HR PRN 02/14/21 02/14/21 History Allergies Allergy/AdvReac Type Severity Reaction Status Date / Time No Known Allergies Allergy Verified 02/14/21 07:07 Physical Exam Vitals: Vital Signs Temp Pulse Pulse Resp BP BP Pulse Ox 02/14/21 13:50 105 H 20 02/14/21 11:48 98.8 F 105 H 20 127/73 99 02/14/21 08:00 20 02/14/21 06:00 99.4 F 110 H 22 126/82 97 02/14/21 00:42 101.6 F H 113 H 24 117/72 98 02/13/21 23:32 102.7 F H 02/13/21 22:48 100.6 F H 122 H 20 105/68 95 Intake and Output 02/14/21 02/14/21 02/14/21 06:59 14:59 22:59 Intake Total 700 Balance 700 Intake: IV 700 Sodium Chloride 0.9% 1, 650 000 ml @ 130 mls/hr IV . [id number] DENNIS Rx#:[id number] cefTRIAXone 1 gm In 50 Sodium Chloride 0.9% 50 ml @ 100 mls/hr IVPB ONCE STA Rx#:[id number] Other: # Voids 1 Results CBC & Chem 7: 02/13/21 23:56 02/13/21 23:56 Labs: Abnormal Lab Results - Last 24 Hours (Table) 02/13/21 02/13/21 02/14/21 Range/Units 23:56 23:56 01:35 WBC 15.5 H (3.8-10.6) k/uL Neutrophils # 13.3 H (1.3-7.7) k/uL Sodium 130 L (137-145) mmol/L Chloride 95 L (98-107) mmol/L Creatinine 1.27 H (0.66-1.25) mg/dL Glucose 155 H (74-99) mg/dL Urine Protein 1+ H (Negative) Urine Ketones Trace H (Negative) Hyaline Casts 3 H (0-2) /lpf Urine Mucus Many H (None) /hpf
--- NOTE | 2021-02-14 15:01 | P.DS ---
Providers Date of admission: 02/14/21 04:00 Attending physician: Kristina Rico Primary care physician: Jammie Parry [facility] Course: Refer to my HPI for further details Patient Condition at Discharge: Serious Plan - Discharge Summary New Discharge Prescriptions: New Cefuroxime Axetil [Ceftin] 500 mg PO BID 5 Days #10 tab Doxycycline Monohydrate [Monodox] 100 mg PO Q12HR #10 cap Famotidine [Pepcid] 20 mg PO BID #20 tablet No Action Ibuprofen [Motrin Ib] 1,200 mg PO Q6HR PRN PRN Reason: Pain Or Fever > 100.5 Acetaminophen Tab [Tylenol Tab] 1,000 mg PO Q6HR PRN PRN Reason: Pain Or Fever > 100.5 Discharge Medication List Acetaminophen Tab [Tylenol Tab] 1,000 mg PO Q6HR PRN 02/14/21 [History] Cefuroxime Axetil [Ceftin] 500 mg PO BID 5 Days #10 tab 02/14/21 [Rx] Doxycycline Monohydrate [Monodox] 100 mg PO Q12HR #10 cap 02/14/21 [Rx] Famotidine [Pepcid] 20 mg PO BID #20 tablet 02/14/21 [Rx] Ibuprofen [Motrin Ib] 1,200 mg PO Q6HR PRN 02/14/21 [History] Follow up Appointment(s)/Referral(s): Sohan Agudelo MD [Primary Care Provider] - 3 Days Discharge Disposition: HOME SELF-CARE
== END 2021-02-14 18:13 | disposition home or self-care (01) ==
LOC: EC 22:44 → 6NMEDSUR 02-14 04:00
PROVIDERS: ADMIT Hospitalist; ATTEND Hospitalist
DX: A41.9 Sepsis, unspecified organism (principal); N17.9 Acute kidney failure, unspecified; E87.1 Hypo-osmolality and hyponatremia; E86.1 Hypovolemia; J96.11 Chronic respiratory failure with hypoxia; U09.9 Post COVID-19 condition, unspecified; R73.03 Prediabetes; G47.30 Sleep apnea, unspecified; K21.9 Gastro-esophageal reflux disease without esophagitis; Z99.81 Dependence on supplemental oxygen; E66.9 Obesity, unspecified; Z68.33 Body mass index [BMI] 33.0-33.9, adult; Z20.822 Contact with and (suspected) exposure to COVID-19; G43.909 Migraine, unspecified, not intractable, without status migrainosus; Z79.899 Other long term (current) drug therapy; Z79.01 Long term (current) use of anticoagulants; Z87.39 Personal history of other diseases of the musculoskeletal system and connective tissue; Z98.890 Other specified postprocedural states
CPT/HCPCS: 96376; 96361; 96365; 96366; 96367; 96375; 99285; 36415; 80053; 83605; 85025; 81001; 87040; 87502; 87635; 71046; G0378; J3370; J1200; J0696; J1741